=== PATIENT | female | born 1945 | race Caucasian/White ===

== ENCOUNTER 2019-04-12 08:07 | Outpatient (REF) | payer MEDICARE, OTHER, SELFPAY ==
[2019-04-12 12:58] LABS: HCT 34.4 % (36.0-46.0); HGB 10.8 g/dL (12.0-15.5); Mean Corp. HGB Concentration 31.4 g/dL (32.0-36.0); Mean Corpuscular Hemoglobin 31.1 pg (27.0-33.0); Mean Corpuscular Volume 99.1 fL (80-95); Mean Platelet Volume 11.3 fL (8.0-11.0); Platelet Count 267 x1000/uL (130-400); RBC 3.47 m/cumm (4.00-5.20); RBC Distribution Width 13.4 % (11.7-14.6)
[2019-04-12 13:45] LABS: Anion Gap 8.7 mmol/L (3-11); BUN 30 mg/dL (7-18); CO2 27.3 mmol/L (21.0-32.0); CREATININE 1.72 mg/dL (0.55-1.02); Calcium 8.9 mg/dL (8.5-10.1); Calculated LDL 90 mg/dL; Chloride 108 mmol/L (98-107); Cholesterol 144 mg/dL (50-200); Estimated GFR 28.99 (mL/min/1.73m2); Glucose 90 mg/dL (70-100); HDL Cholesterol 17 mg/dL (40-60); Potassium 4.5 mmol/L (3.5-5.1); Sodium 144 mmol/L (136-145); TSH (W/Ref FT4) 3.43 uIU/mL (0.36-3.74); Triglyceride 186 mg/dL (30-150)
== END 2019-04-12 08:27 ==
LOC: NCHCN 08:07
PROVIDERS: PCP Nurse Practitioner Family; Visit Provider Nurse Practitioner Family
DX: N18.9 Chronic kidney disease, unspecified (principal); D64.9 Anemia, unspecified; E03.9 Hypothyroidism, unspecified
CPT/HCPCS: 80048; 80061; 83721; 85027; 84443

== ENCOUNTER 2019-05-04 00:27 | Outpatient (CLI) | payer MEDICARE, OTHER, SELFPAY ==
--- NOTE | 2019-05-04 12:35 | DI.MAMMO_ITS ---
SYMPTOM/DIAGNOSIS: SCREENING Z12.39 BILATERAL SCREENING MAMMOGRAM: Mammograms were interpreted according to the usual protocol including computer analysis with CAD system, tomosynthesis and C view imaging. Comparison is made with exams from 2008 through 2017 from [facility]. The breasts are composed of fatty density tissue, breast density category A. No suspicious masses or suspicious microcalcifications are seen. There has been no significant change. IMPRESSION: Category 1, negative mammogram. Yearly screening mammography is recommended. Breast density category A. SA ASSESSMENT OF FINDINGS: Negative. Category 1. Patient will receive a letter notifying them of these results. BI-RAD category A. The breasts are almost entirely fatty.
== END 2019-05-04 00:47 ==
PROVIDERS: PCP Nurse Practitioner Family; Visit Provider Nurse Practitioner Family
DX: Z12.31 Encounter for screening mammogram for malignant neoplasm of breast (principal)
CPT/HCPCS: 77063; 77067

== ENCOUNTER 2019-10-17 09:56 | Outpatient (REF) | payer MEDICARE, OTHER, SELFPAY ==
[2019-10-17 12:35] LABS: Anion Gap 8.6 mmol/L (3-11); BUN 25 mg/dL (7-18); CO2 27.4 mmol/L (21.0-32.0); CREATININE 1.62 mg/dL (0.55-1.02); Calcium 8.5 mg/dL (8.5-10.1); Chloride 109 mmol/L (98-107); Estimated GFR 30.98 (mL/min/1.73m2); Glucose 96 mg/dL (74-106); Potassium 4.7 mmol/L (3.5-5.1); Sodium 145 mmol/L (136-145)
== END 2019-10-17 10:16 ==
LOC: NCHCN 09:56
PROVIDERS: PCP Nurse Practitioner Family; Visit Provider Nurse Practitioner Family
DX: N18.4 Chronic kidney disease, stage 4 (severe) (principal)
CPT/HCPCS: 80048

== ENCOUNTER 2020-02-17 12:03 | Day surgery (SDC) | payer MEDICARE, OTHER, SELFPAY ==
--- NOTE | 2020-02-17 07:55 | W.PM.DSUDISC ---
Discharge Plan Disposition Patient Disposition: HOME Condition: Good Discharge Details Reason For Visit: CATARACT OD Attending Provider: Romulo Kennedy Primary Care Provider: Arti Rouse Home Meds and New Rx's Prescriptions: No Action benzonatate [Tessalon Perles] 100 mg Capsule 100 mg PO TID PRNRF: 0 nystatin 100,000 unit/gram Cream 1 applic TOPICAL BID RF: 0 betamethasone dipropionate 0.05 % Cream 1 applic TOPICAL BID RF: 0 albuterol sulfate [Ventolin HFA] 90 mcg/actuation Hfa Aerosol Inhaler 2 puff INHALATION 6XD PRNRF: 0 Probiotic 10 billion cell Capsule 10 cell PO DAILY RF: 0 nitroglycerin [Nitrostat] 0.4 mg Tablet, Sublingual 0.4 mg SUBLINGUAL Q5-15M PRNRF: 0 Leg Cramp Relief Oral Tablet 1 tab PO HS RF: 0 cyanocobalamin (vitamin B-12) [Vitamin B-12] 1,000 mcg Tablet 1,000 mcg PO DAILY RF: 0 levothyroxine 75 mcg Tablet 75 mcg PO DAILY RF: 0 omeprazole 20 mg Capsule,Delayed Release(Dr/Ec) 20 mg PO DAILY RF: 0 lorazepam 1 mg Tablet 1 mg PO QHS PRNRF: 0 fenofibrate 160 mg Tablet 160 mg PO DAILY RF: 0 Centrum Silver Women 8 mg iron-400 mcg-300 mcg Tablet 1 tab PO DAILY RF: 0 ICaps AREDS2 250 mg-200 unit -12.5 mg-1 mg Capsule 1 cap PO DAILY RF: 0 Discharge Instructions Stand Alone Forms: Post-op Topical Cataract, Clayton Gooden (DSU) DS: Diagnosis Discharge Diagnosis (1) Nuclear sclerotic cataract of right eye: Start date: 02/17/20 Start time: 15:37 Status: Resolved (2) Cortical cataract of right eye: Status: Resolved
--- NOTE | 2020-02-17 07:58 | ROE_ITS ---
Date of service: 02/17/20 Operative Note Operative Note DATE OF PROCEDURE: 02/17/20 PRE-OP DIAGNOSIS: Nuclear cataract, right eye' Cortical cataract, right eye POST-OP DIAGNOSIS: same PROCEDURE: Cataract extraction using phacoemulsification with intraocular lens implant, right eye SURGEON: Romulo Kennedy ANESTHESIA: MAC and local (sub-tenon's anesthetic infiltration) ESTIMATED BLOOD LOSS: 0 PATHOLOGY: none sent COMPLICATIONS: None Patient was transported to: same day Patient's condition: stable Implants: Renato and Renato Vision / [employer] Tecnis ZCB00 intraocular lens Indications: Progressive decreased vision due to cataract, right eye Procedure Description: CATARACT SURGERY OPERATIVE REPORT PREOPERATIVE DIAGNOSIS: [] POSTOPERATIVE DIAGNOSIS: Same OPERATION: Cataract extraction using phacoemulsification with posterior chamber intraocular lens implant, right eye. IOL: IOL Accounting Administrative Assistant/Model: J&J Vision / TERESA Tecnis ZCB00 IOL Power: +[] diopters IOL Serial Number: [] Optic Diameter: 6.0mm Haptic/Overall Diameter: 13.0mm PHACO INFO: Tre[employer]oeton Vision System with OZil and Active Fluidics Cumulative Dispersed Energy (CDE): [] seconds SURGEON: Romulo Kennedy MD, ALPESH ANESTHESIA: Monitored Anesthesia Care (MAC), with local sub-tenon's anesthetic infiltration COMPLICATIONS: None SPECIMENS: None INDICATIONS FOR PROCEDURE: [] PROCEDURE: The correct surgical eye was identified and marked as the right eye and the pupil was dilated in the preoperative area using mydriatics and cycloplegics. The dilated pupil size was [] mm. Oral sedation was administered in the form of an Imprimis MKO Melt (midazolam 3mg/ketamine 25mg/ondansetron 2mg). The patient was brought to the operating room where cardiopulmonary monitoring was instituted and surgical time-out was performed, confirming the correct operative eye and IOL power. Topical anesthesia was administered and ophthalmic povidone-iodine 5% was instilled into the conjunctival fornices. Lidocaine gel was applied to the cornea and the jaja-ocular area was prepped with Betadine 10% solution and draped in the usual sterile fashion for intraocular surgery, including an aperture drape. A Tegaderm transparent film dressing was cut in half and used to cover the lashes and lid margins. Care was taken to sequester the lashes and lid margins under the Tegaderm dressing. A lid speculum was placed between the lids of the operative eye and the Karishma-Kiet operating microscope was maneuvered into position. Tramaine scissors were then used to make a conjunctival buttonhole approximately 6mm posterior to the limbus in the inferonasal quadrant. Blunt dissection was carried out to expose bare sclera, and a blunt-tipped sub-tenon?s anesthesia cannula was introduced and passed posteriorly along the globe where non- preserved plain lidocaine was injected into posterior sub-Tenon?s space. A sideport knife was used to make a paracentesis port inferiortemporally, and the anterior chamber was filled with Healon GV. A 2.4mm keratome knife was used to create a half-thickness groove at the limbus and then to construct a three-plane near-clear corneal tunnel extending 2.0mm into clear cornea in the superiortemporal position. . A flap was raised on the anterior capsule and capsulorhexis forceps were used to complete a continuous curvilinear capsulorhexis of []mm. Balanced salt solution was then used to perform cortical cleaving hydrodissection and nuclear hydrodelineation until the lens could be freely rotated within the capsular bag. The lens nucleus was then disassembled and removed within the capsular bag and iris plane using phacoemulsification. Residual cortical material was removed using the I/A handpiece. The posterior capsule was carefully polished to remove as much residual lens epithelial cells as safely possible. The capsular bag was then inflated and the anterior chamber deepened with viscoelastic. The lens implant described above was inserted into the capsular bag using the TERESA [place] Injector. A Kuglen hook was used to dial the IOL into position. Residual viscoelastic was then removed first from posterior to the IOL, then from the anterior chamber using the I/A handpiece. The lens implant was noted to center nicely within the capsular bag. The incisions were stromally hydrated, and the anterior chamber was reformed using BSS. Then 0.4cc of moxifloxacin 1.5mg/ml were injected into the capsular bag and anterior chamber. The incisions were checked with a Weck spear and found to be secure. Several drops of ophthalmic povidone-iodine 5% were then applied to the eye followed by two drops of Imprimis combination prednisolone/gatifloxacin/bromfenac solution. The drapes were removed and a clear plastic protective eye shield was placed over the eye. The patient was then returned to Same Day Surgery in stable condition.
--- NOTE | 2020-02-17 08:06 | ROE_ITS ---
Date of service: 02/17/20 Time of Service: 15:39 Operative Note Operative Note DATE OF PROCEDURE: 02/17/20 PRE-OP DIAGNOSIS: Nuclear/cortical cataract, right eye POST-OP DIAGNOSIS: same PROCEDURE: Cataract extraction using phacoemulsification with intraocular lens implant, right eye SURGEON: Romulo Kennedy ANESTHESIA: MAC and local (sub-tenon's anesthetic infiltration) ESTIMATED BLOOD LOSS: 0 PATHOLOGY: none sent COMPLICATIONS: None Patient was transported to: same day Patient's condition: stable Implants: Renato and Renato Vision / [employer] Tecnis ZCB00 intraocular lens Indications: Progressive decreased vision due to cataract, right eye Procedure Description: CATARACT SURGERY OPERATIVE REPORT PREOPERATIVE DIAGNOSIS: Nuclear/cortical cataract, right eye POSTOPERATIVE DIAGNOSIS: Same OPERATION: Cataract extraction using phacoemulsification with posterior chamber intraocular lens implant, right eye. IOL: IOL Trust Vault Custodian/Model: J&J Vision / TERESA Tecnis ZCB00 IOL Power: + 21.0 diopters IOL Serial Number: [id number] Optic Diameter: 6.0mm Haptic/Overall Diameter: 13.0mm PHACO INFO: Tre M[employer]ix Broadbandurion Vision System with OZil and Active Fluidics Cumulative Dispersed Energy (CDE): 6.86 seconds SURGEON: Romulo Kennedy MD, ALPESH ANESTHESIA: Monitored Anesthesia Care (MAC), with local sub-tenon's anesthetic infiltration COMPLICATIONS: None SPECIMENS: None INDICATIONS FOR PROCEDURE: The patient is a 74-year-old lady who has previously undergone cataract surgery elsewhere in her left eye. She has now developed a symptomatic nuclear and cortical cataract in her right eye and desires cataract surgery there and attem pt to improve and maximize her vision. PROCEDURE: The correct surgical eye was identified and marked as the right eye and the pupil was dilated in the preoperative area using mydriatics and cycloplegics. The dilated pupil size was 6.0 mm. Oral sedation was administered in the form of an Imprimis MKO Melt (midazolam 3mg/ketamine 25mg/ondansetron 2mg). The patient was brought to the operating room where cardiopulmonary monitoring was instituted and surgical time-out was performed, confirming the correct operative eye and IOL power. Topical anesthesia was administered and ophthalmic povidone-iodine 5% was instilled into the conjunctival fornices. Lidocaine gel was applied to the cornea and the jaja-ocular area was prepped with Betadine 5% solution and draped in the usual sterile fashion for intraocular surgery, including an aperture drape. A Tegaderm transparent film dressing was cut in half and used to cover the lashes and lid margins. Care was taken to sequester the lashes and lid margins under the Tegaderm dressing. A lid speculum was placed between the lids of the operative eye and the Karishma-Kiet operating microscope was maneuvered into position. Tramaine scissors were then used to make a conjunctival buttonhole approximately 6mm posterior to the limbus in the inferonasal quadrant. Blunt dissection was carried out to expose bare sclera, and a blunt-tipped sub-tenon?s anesthesia cannula was introduced and passed posteriorly along the globe where non- preserved plain lidocaine was injected into posterior sub-Tenon?s space. A sideport knife was used to make a paracentesis port inferiortemporally. Intraocular phenylephrine/lidocaine was injected into the anterior chamber, followed by Healon Pro. A 2.4mm keratome knife was used to create a half- thickness groove at the limbus and then to construct a three-plane near-clear corneal tunnel extending 2.0mm into clear cornea in the superiortemporal position. . A flap was raised on the anterior capsule and capsulorhexis forceps were used to complete a continuous curvilinear capsulorhexis of 5.0 mm. Balanced salt solution was then used to perform cortical cleaving hydrodissection and nuclear hydrodelineation until the lens could be freely rotated within the capsular bag. The lens nucleus was then disassembled and removed within the capsular bag and iris plane using phacoemulsification. Residual cortical material was removed using the I/A handpiece. The posterior capsule was carefully polished to remove as much residual lens epithelial cells as safely possible. The capsular bag was then inflated and the anterior chamber deepened with viscoelastic. The lens implant described above was inserted into the capsular bag using the TERESA [place] Injector. A Kuglen hook was used to dial the IOL into position. Residual viscoelastic was then removed first from posterior to the IOL, then from the anterior chamber using the I/A handpiece. The lens implant was noted to center nicely within the capsular bag. The incisions were stromally hydrated, and the anterior chamber was reformed using BSS. Then 0.5cc of moxifloxacin 1.0mg/ml were injected into the capsular bag and anterior chamber. The incisions were checked with a Weck spear and found to be secure. Several drops of ophthalmic povidone-iodine 5% were then applied to the eye followed by two drops of Imprimis combination prednisolone/moxifloxacin/nepafenac solution. The drapes were removed and a clear plastic protective eye shield was placed over the eye. The patient was then returned to Same Day Surgery in stable condition.
[2020-02-17 12:42] VITALS: BP 115/71; PULSE 82; RESP 16; TEMP 36.6; O2SAT 97
[2020-02-17] MEDS: Lidocaine 2% Jelly 6 ML SYR (14:51)
[2020-02-17] MEDS: Tetracaine 0.5% 4 ML BTL OD (15:01)
[2020-02-17] MEDS: Lidocaine 1% Pres-Free 5 ML VIAL (15:01)
[2020-02-17] MEDS: Balanced Salt Soln.-PLUS 500 ML BAG (15:09)
[2020-02-17] MEDS: Moxifloxacin-PF 1 MG/ML VIAL (15:12)
[2020-02-17 16:35] VITALS: BP 123/66; PULSE 86; RESP 18; TEMP 36.3; O2SAT 98
== END 2020-02-17 16:20 | disposition home or self-care (01) ==
PROVIDERS: PCP Nurse Practitioner Family; Visit Provider Ophthalmology
PROC: (CPT 66984; principal; 2020-02-17 14:30)
DX: H25.11 Age-related nuclear cataract, right eye (principal); H25.011 Cortical age-related cataract, right eye; Z96.1 Presence of intraocular lens; Z98.42 Cataract extraction status, left eye
CPT/HCPCS: 66984; V2632

== ENCOUNTER 2020-07-17 01:34 | Outpatient (CLI) | payer MEDICARE, OTHER, SELFPAY ==
--- NOTE | 2020-07-17 08:45 | DI.DEXA_ITS ---
EXAM: XR DEXA BONE DENSITY W/WO JOSH CLINICAL HISTORY: SCREENING FOR OSTEOPOROSIS IN POSTMENOPAUSAL WOMAN,Z78.0 TECHNIQUE: COMPARISON: No exams were available for comparison FINDINGS: Lateral Spine Image: Unremarkable. No compression deformities identified. Left hip: Total T-Score: -1.0 Total Z-Score: 0.8 T- and Z-scores: Within normal limits. Lumbar Spine: Total T-Score: -0.1 Total Z-Score: 2.4 T- and Z-scores: Within normal limits. IMPRESSION: No evidence of osteoporosis.
== END 2020-07-17 01:54 ==
PROVIDERS: PCP Family Medicine; Visit Provider Family Medicine
DX: Z78.0 Asymptomatic menopausal state (principal)
CPT/HCPCS: 77080

== ENCOUNTER 2021-03-07 03:55 | Outpatient (CLI) | payer MEDICARE, OTHER, SELFPAY ==
[2021-03-07 11:13] LABS: HCT 32.1 % (36.0-46.0); HGB 10.2 g/dL (11.2-15.7); MCH 32.2 pg (27.0-33.0); MCHC 31.8 % (32.0-36.0); MCV 101.3 fL (80-95); MPV 10.5 fL (8.0-11.0); Platelet Count 239 10^3/uL (130-400); RBC 3.17 10^6/uL (3.93-5.22); RDW 13.7 % (11.7-14.6); Reticulocyte 1.6 % (0.5-2.4); WBC 6.93 10^3/uL (4.4-10.8)
[2021-03-07 11:54] LABS: Iron 87 ug/dL (50-170); Total Iron Binding Capacity 362 ug/dL (250-450); Transferrin Sat 24 % (15-50)
[2021-03-07 12:21] LABS: Anion Gap 8.4 mmol/L (3-11); BUN 24 mg/dL (7-18); CO2 27.6 mmol/L (21.0-32.0); CREATININE 1.8 mg/dL (0.55-1.02); Calcium 8.9 mg/dL (8.5-10.1); Chloride 110 mmol/L (98-107); Estimated GFR 27.36 (mL/min/1.73m2); Ferritin 282 ng/mL (8-252); Folate > 20.0 ng/mL (8.6-20.0); Glucose 83 mg/dL (74-106); Magnesium 2.1 mg/dL (1.8-2.4); Sodium 146 mmol/L (136-145); Vitamin B12 607 pg/mL (193-986)
[2021-03-08 18:20] LABS: Erythropoietin 10.3 mIU/mL (2.6 - 18.5)
== END 2021-03-07 03:56 | disposition home or self-care (01) ==
LOC: LBO 03:56
PROVIDERS: PCP Internal Medicine; Visit Provider Internal Medicine
DX: N18.4 Chronic kidney disease, stage 4 (severe) (principal); D64.9 Anemia, unspecified; G47.62 Sleep related leg cramps; E03.9 Hypothyroidism, unspecified; Z79.899 Other long term (current) drug therapy
CPT/HCPCS: 36415; 80048; 82668; 85027; 82607; 82728; 82746; 83540; 83550; 83735; 85045

== ENCOUNTER 2021-10-24 18:40 | Outpatient (REF) | payer MEDICARE, OTHER, SELFPAY ==
[2021-10-24 14:55] LABS: HCT 32.4 % (36.0-46.0); HGB 10.2 g/dL (11.2-15.7); MCH 31.7 pg (27.0-33.0); MCHC 31.5 % (32.0-36.0); MCV 100.6 fL (80-95); MPV 11.5 fL (8.0-11.0); Platelet Count 252 10^3/uL (130-400); RBC 3.22 10^6/uL (3.93-5.22); RDW 13.8 % (11.7-14.6); WBC 6.47 10^3/uL (4.4-10.8)
[2021-10-24 15:40] LABS: Anion Gap 9.3 mmol/L (3-11); BUN 22 mg/dL (7-18); CO2 25.7 mmol/L (21.0-32.0); CREATININE 1.7 mg/dL (0.55-1.02); Chloride 108 mmol/L (98-107); Estimated GFR 29.14 (mL/min/1.73m2); Glucose 106 mg/dL (74-106); Potassium 4.6 mmol/L (3.5-5.1); Sodium 143 mmol/L (136-145); TSH (W/Ref FT4) 2.85 uIU/mL (0.36-3.74)
== END 2021-10-24 18:41 | disposition home or self-care (01) ==
LOC: NCHCN 18:40
PROVIDERS: Visit Provider Nurse Practitioner Family
DX: D64.9 Anemia, unspecified (principal); E03.9 Hypothyroidism, unspecified; N18.4 Chronic kidney disease, stage 4 (severe)
CPT/HCPCS: 80048; 85027; 84443

== ENCOUNTER 2022-02-26 19:46 | Outpatient (REF) | payer MEDICARE, OTHER, SELFPAY ==
[2022-02-26 20:18] LABS: HCT 33.4 % (36.0-46.0); MCH 32.9 pg (27.0-33.0); MCHC 32.9 % (32.0-36.0); MCV 100 fL (80-95); Platelet Count 220 10^3/uL (130-400); RBC 3.34 10^6/uL (3.93-5.22); RDW 13.2 % (11.7-14.6); RDW-SD 47.9 fL; WBC 6.41 10^3/uL (4.4-10.8)
[2022-02-26 20:23] LABS: Anion Gap 6.7 mmol/L (3-11); BUN 25 mg/dL (7-18); CO2 27.3 mmol/L (21.0-32.0); CREATININE 1.5 mg/dL (0.55-1.02); Calcium 8.6 mg/dL (8.5-10.1); Chloride 109 mmol/L (98-107); Estimated GFR 33.67 (mL/min/1.73m2); Glucose 103 mg/dL (74-106); Potassium 4.7 mmol/L (3.5-5.1); Sodium 143 mmol/L (136-145)
== END 2022-02-26 19:47 | disposition home or self-care (01) ==
LOC: NCHCN 19:46
PROVIDERS: Visit Provider Nurse Practitioner Family
DX: N18.4 Chronic kidney disease, stage 4 (severe) (principal); D64.9 Anemia, unspecified
CPT/HCPCS: 80048; 85027

== ENCOUNTER 2022-04-17 09:30 | Outpatient (CLI) | payer MEDICARE, OTHER, SELFPAY ==
--- NOTE | 2022-04-17 09:15 | DI.RAD_ITS ---
Exam(s) XR KNEE RT 3V AP,LAT,RITO EXAM: XR KNEE RT 3V AP,LAT,RITO CLINICAL HISTORY: RIGHT KNEE PAIN. TECHNIQUE: 2D digital imaging was performed. Three views. COMPARISON: No exams were available for comparison FINDINGS: BONES: No acute fracture is present. No bony destructive lesion is seen. Enthesophyte superior pole of the patella. JOINTS: The knee is normally aligned. No joint effusion is seen. Minimal periarticular spurring. SOFT TISSUE: Medial soft tissue swelling and venous varicosities. IMPRESSION: Minimal degenerative changes. Prominent venous varicosities. Medial soft tissue swelling. DATA REPOSITORY: RADIATION DOSE DELIVERED:
--- NOTE | 2022-04-17 09:15 | DI.RAD_ITS ---
Exam(s) XR KNEE LT 3V AP,LAT,RITO EXAM: XR KNEE LT 3V AP,LAT,RITO CLINICAL HISTORY: LEFT KNEE PAIN. TECHNIQUE: 2D digital imaging was performed. Three views. COMPARISON: CR XR KNEE RT 3V AP,LAT,RITO from 04/17/2022 FINDINGS: BONES: No acute fracture is present. No bony destructive lesion is seen. Enthesophyte at the quadr iceps insertion. JOINTS: Moderate narrowing lateral femoral tibial joint space. Mild periarticular spurring and scler osis. Mild spurring at the patella. No joint effusion is seen. SOFT TISSUE: Varicosities medial soft tissues. 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 DATA REPOSITORY: RADIATION DOSE DELIVERED:
== END 2022-04-17 09:31 | disposition home or self-care (01) ==
LOC: DIORS 09:30
PROVIDERS: PCP Nurse Practitioner Family; Referring Provider Nurse Practitioner Family; Visit Provider Student in an Organized Health Care Education/Training Program
DX: M17.11 Unilateral primary osteoarthritis, right knee (principal); M17.12 Unilateral primary osteoarthritis, left knee
CPT/HCPCS: 73562; 99203

== ENCOUNTER → 2022-09-25 09:05 | Outpatient (BNVA) | payer MEDICARE, OTHER, SELFPAY | PROVIDERS: PCP Nurse Practitioner Family; Referring Provider Nurse Practitioner Family; Visit Provider Student in an Organized Health Care Education/Training Program | DX: M17.12 Unilateral primary osteoarthritis, left knee (principal) | CPT/HCPCS: 20610; J1040 ==

== ENCOUNTER 2022-10-17 09:59 | Emergency (ER) | payer MEDICARE, OTHER, SELFPAY ==
[2022-10-17] VITALS (42 sets, daily range): BP systolic 134–148; BP diastolic 50–107; PULSE 53–76; RESP 11–24; TEMP 36.7; O2SAT 86–97
--- NOTE | 2022-10-17 10:00 | RT.EKG_ITS ---
APPROVED REPORT Exam: Resting ECG Reason for Exam: chest pain Patient Location: E HR:68 bpm ECG Measurements Heart Rate 68 AXIS MO 150 P 50 QRSd 69 QRS -23 QT 371 T 68 QTc 395 Conclusion Sinus rhythm...normal P axis, V-rate 60- 99
--- NOTE | 2022-10-17 10:28 | ED.GENADUL_ITS ---
Discharge Plan Disposition Patient Disposition: Transfer-Acute Inpatient Care Specific Acute Inpt Facility: [facility] Discharge Details Chief Complaint: GenMedical Clinical Impression: Intracranial hemorrhage Primary Care Provider: Arti Rouse ED Provider: Clinton Chang Home Meds and New Rx's Prescriptions: No Action meloxicam 7.5 mg tablet 7.5 mg PO DAILY triamcinolone acetonide 0.1 % cream 1 applic topical BID nitroglycerin [Nitrostat] 0.4 mg tablet, sublingual 0.4 mg SUBLINGUAL Q5-15M PRN (Reason: chest pain) Qty: 60 0RF vitamin B complex [B Complex-Vitamin B12] Tablet 1 tab PO DAILY Qty: 90 3RF magnesium L-lactate 84 mg tablet extended release 84 mg PO DAILY omeprazole 20 mg capsule,delayed release(DR/EC) 20 mg PO DAILY Qty: 90 2RF lorazepam 1 mg tablet 0.5 mg PO DAILY PRN (Reason: anxiety) Qty: 20 0RF levothyroxine 75 mcg tablet 75 mcg PO DAILY Qty: 90 3RF albuterol sulfate [Ventolin HFA] 90 mcg/actuation Hfa Aerosol Inhaler 2 puff INHALATION 6X/DAY PRN (Reason: Shortness Of Breath) Centrum Silver Women 8 mg iron-400 mcg-300 mcg Tablet 1 tab PO DAILY ICaps AREDS2 250 mg-200 unit -12.5 mg-1 mg Capsule 1 cap PO DAILY Medical Decision Making This is a 77-year-old female with past medical history of anxiety, thyroid disease, anemia, CKD, presenting to the ER today with multiple complaints, headache over the past 48 hours, worsening yesterday, now a 7 out of 10, occasional blurry vision, worse in the right side. Also reports chest pain yesterday, denies chest pain now. Also reports nausea, vomiting, 1 episode of diarrhea today. Headache is worsening, visual changes have been intermittent. Plan to obtain brain CT as well as brain and neck CTA, initiate cardiac work-up. Will provide IV fluid, Zofran, acetaminophen. Laboratory values reveal no obvious emergent process. Renal function creatinine 1.5 GFR 35.45 which appears to be near her baseline. Initial troponin less than 50. TSH 1.56. Urinalysis with small leuk esterase, 3-5 red and white cells. Nitrate negative. COVID, flu, RSV negative I was contacted by the telecom field technician during the CT imaging for concerning findings, intracranial hemorrhage. The images were pushed to [facility] and requested a transfer-consultation. The CTA was canceled. I did discuss the CT findings with the patient and her . Awaiting callback from neurology and/or neurosurgery at [facility] for transfer. In the meantime patient remains neurologically intact and hemodynamically stable. Reports minimal improvement with IV Tylenol. After waiting over 2 hours for callback from [facility], we did initiate a transfer to neurology at [facility], images were pushed. At [address] Scanlon, neurology at [facility]. He excepts transfer of the patient. Awaiting bed status. While awaiting a bed, I received a call from neurology at [facility] 1453. I spoke with neurology, Dr. Garcia, who excepted care of the patient but they too did not have any beds. Likely this evening. Recommends keeping blood pressure systolically under 140. Patient has been persistently under 140 while here. Continues to report a headache. Intermittent blurry vision but no true visual field deficit. Remains neurologically intact. I explained to the patient and her family our transfer status of both [facility] and [facility], they would like to go to the facility that has the bed the fastest. Shortly after we received a call from [facility] stating that they had bed availability, all appropriate paperwork was completed and transportation was arranged. This documentation was generated using S[employer]ED dictation system, please disregard any oddities of phrase or misspellings. Medical Records Medical records reviewed: Yes I reviewed the patient's medical records. Imaging Data Radiologic Study: Attestation: I personally reviewed and interpreted this imaging study as follows: Imaging: CT Scan Radiologist's impression: Exam(s) CT HEAD WO EXAM: CT HEAD WO CLINICAL HISTORY: BIRD, blurry vision. TECHNIQUE: Imaging Protocol: Axial computed tomography images with coronal and sagittal reformatted images were created and reviewed COMPARISON: No exams were available for comparison FINDINGS: There are no skull fractures. There is no fluid in the visualized paranasal sinuses. There is an area of intra-axial hemorrhage in the right occipital lobe which measures 3.6 cm AP x 3.6 cm wide by 2.6 cm craniocaudal. There is some surrounding brain edema and adjacent extra-axial blood over the subjacent tentorium cerebella lie. There is no evidence of intra-axial hemorrhage in the posterior fossa. No blood within the ventricular system nor within the basal cisterns. No shift of midline structures IMPRESSION: There is a right occipital lobe hemorrhage with measurements as above. There is some surrounding edema and mass effect as well as subjacent extra-axial acute blood over the ipsilateral tentorium. No evidence of intra-axial hemorrhage within the cerebellar hemispheres. Lab Data Lab results reviewed: Yes I reviewed the patient's lab results. Labs: Laboratory Tests Range/Units 10/17/22 10/17/22 10/17/22 10:25 10:25 10:25 WBC (4.4-10.8) 10^3/uL 8.62 RBC (3.93-5.22) 10^6/uL 3.78 L Hgb (11.2-15.7) g/dL 11.7 Hct (36.0-46.0) % 35.9 L MCV (80-95) fL 95 MCH (27.0-33.0) pg 31.0 MCHC (32.0-36.0) % 32.6 RDW (11.7-14.6) % 12.8 Plt Count (130-400) 10^3/uL 200 MPV (8.0-11.0) fL 10.4 Immature Gran % 0.2 Neutrophils % 74.2 Lymphocytes % 15.8 Monocytes % 9.3 Eosinophils % 0.3 Basophils % 0.2 Nucleated RBC % (0.0-0.3) % 0.0 Absolute Neutrophils (1.2-6.7) 10^3/uL 6.39 Absolute Lymphocytes (1.2-3.4) 10^3/uL 1.36 Absolute Monocytes (0.1-0.8) 10^3/uL 0.80 Absolute Eosinophils (0.0-0.7) 10^3/uL 0.03 Absolute Basophils (0.0-0.2) 10^3/uL 0.02 PT (9.3-11.0) sec 10.0 INR (0.9-1.1) 1.0 APTT (21.0-27.5) sec 21.2 Sodium (136-145) mmol/L 140 Potassium (3.5-5.1) mmol/L 4.3 Chloride (98-107) mmol/L 104 Carbon Dioxide (21.0-32.0) mmol/L 26.4 Anion Gap (3-11) mmol/L 9.6 BUN (7-18) mg/dL 20 H Creatinine (0.55-1.02) mg/dL 1.5 H Est GFR (CKD-EPI 2020) (mL/min/1.73m2) 35.45 Glucose (74-106) mg/dL 109 H Calcium (8.5-10.1) mg/dL 9.5 Magnesium (1.8-2.4) mg/dL 2.0 Total Bilirubin (0.2-1.0) mg/dL 0.8 AST (15-37) U/L 24 ALT (14-59) U/L 20 Alkaline Phosphatase (46-116) U/L 102 Troponin I (<or=60) ng/L < 50 Total Protein (6.4-8.2) g/dL 7.5 Albumin (3.4-5.0) g/dL 3.7 TSH (0.36-3.74) uIU/mL 1.56 Urine Color (Yellow) Urine Clarity (Clear) Urine pH (5-8) Ur Specific [place] (1.005-1.025) Urine Protein (Negative) mg/dL Urine Ketones (Negative) mg/dL Urine Blood (Negative) Urine Nitrite (Negative) Urine Bilirubin (Negative) Urine Urobilinogen (Up TO 0.2) EU/dL Ur Leukocyte Esterase (Negative) Urine RBC (0-2) HPF Urine WBC (0-5) HPF Ur Epithelial Cells (Negative) HPF Urine Crystals (Negative) HPF Urine Bacteria (Negative) HPF Urine Casts (Negative) LPF Urine Mucus (Negative) Urine Other (Negative) Ur Culture Indicated? Urine Glucose (Negative) mg/dL COVID-19 Source SARS-CoV-2 (PCR) (Negative) Influenza Type A (PCR) (Negative) Influenza Type B (PCR) (Negative) RSV (PCR) (Negative) Range/Units 10/17/22 10/17/22 10:47 10:50 WBC (4.4-10.8) 10^3/uL RBC (3.93-5.22) 10^6/uL Hgb (11.2-15.7) g/dL Hct (36.0-46.0) % MCV (80-95) fL MCH (27.0-33.0) pg MCHC (32.0-36.0) % RDW (11.7-14.6) % Plt Count (130-400) 10^3/uL MPV (8.0-11.0) fL Immature Gran % Neutrophils % Lymphocytes % Monocytes % Eosinophils % Basophils % Nucleated RBC % (0.0-0.3) % Absolute Neutrophils (1.2-6.7) 10^3/uL Absolute Lymphocytes (1.2-3.4) 10^3/uL Absolute Monocytes (0.1-0.8) 10^3/uL Absolute Eosinophils (0.0-0.7) 10^3/uL Absolute Basophils (0.0-0.2) 10^3/uL PT (9.3-11.0) sec INR (0.9-1.1) APTT (21.0-27.5) sec Sodium (136-145) mmol/L Potassium (3.5-5.1) mmol/L Chloride (98-107) mmol/L Carbon Dioxide (21.0-32.0) mmol/L Anion Gap (3-11) mmol/L BUN (7-18) mg/dL Creatinine (0.55-1.02) mg/dL Est GFR (CKD-EPI 2020) (mL/min/1.73m2) Glucose (74-106) mg/dL Calcium (8.5-10.1) mg/dL Magnesium (1.8-2.4) mg/dL Total Bilirubin (0.2-1.0) mg/dL AST (15-37) U/L ALT (14-59) U/L Alkaline Phosphatase (46-116) U/L Troponin I (<or=60) ng/L Total Protein (6.4-8.2) g/dL Albumin (3.4-5.0) g/dL TSH (0.36-3.74) uIU/mL Urine Color (Yellow) Yellow Urine Clarity (Clear) Clear Urine pH (5-8) 7.5 Ur Specific [place] (1.005-1.025) 1.020 Urine Protein (Negative) mg/dL Negative Urine Ketones (Negative) mg/dL Negative Urine Blood (Negative) Trace-intact H Urine Nitrite (Negative) Negative Urine Bilirubin (Negative) Negative Urine Urobilinogen (Up TO 0.2) EU/dL 0.2 Ur Leukocyte Esterase (Negative) Small H Urine RBC (0-2) HPF 3-5 H Urine WBC (0-5) HPF 3-5 Ur Epithelial Cells (Negative) HPF Few Urine Crystals (Negative) HPF Negative Urine Bacteria (Negative) HPF Few Urine Casts (Negative) LPF Negative Urine Mucus (Negative) Trace Urine Other (Negative) Negative Ur Culture Indicated? No Urine Glucose (Negative) mg/dL Negative COVID-19 Source Nasopharynx SARS-CoV-2 (PCR) (Negative) Negative Influenza Type A (PCR) (Negative) Negative Influenza Type B (PCR) (Negative) Negative RSV (PCR) (Negative) Negative ECG Data Attestation: I personally reviewed and interpreted this ECG (s) as follows: Interpretation: Sinus rhythm, ventricular of 68, no STEMI HPI General Mode of arrival: ambulatory . Date/Time Provider Initiated Documentation: 10/17/22 10:00 . Limitations to Documentation: no limitations . Information obtained by: patient . HPI Narrative: This is a 77-year-old female with a past medical history of anxiety, hypothyroidism, anemia, CKD, GERD, presenting to the ER with multiple complaints, first a gradual headache that began yesterday, worse on the right side, currently a 7 out of 10, she reports occasional bilateral blurry vision t hat seems worse on the right side, right now feels as though her vision is near baseline but states this morning looking at her alarm clock she had a hard time evaluating the numbers, reported chest pain yesterday, denies any chest pain now, reports mild nausea and vomiting intermittently for 2 days, 1 episode of diarrhea this morning. She denies recent illness or trauma. She denies any fever, neck pain, shortness of breath, radiation of her chest pain yesterday, abdominal pain, black tarry stools or bright red blood in her stools, dysuria, pain or swelling in her legs. She does report occasionally getting a headache but usually resolves without much intervention. Related Data Home Medications Medication Instructions Recorded Confirmed albuterol sulfate 90 mcg/actuation 2 puff inhalation 6X/DAY PRN 02/14/20 09/25/22 aerosol inhaler (Ventolin HFA) Shortness Of Breath multivit with 1 tab PO DAILY 02/14/20 10/17/22 nicavfqf-xnbv-RK-lutein 8 mg iron-400 mcg-300 mcg tablet (Centrum Silver Women) vit C 250 mg-vit E 200 unit-zinc 1 cap PO DAILY 02/14/20 10/17/22 ox 12.5 po-ppcwqm-whdhmj-zeax capsule (ICaps AREDS2) magnesium L-lactate 84 mg 84 mg PO DAILY 06/15/20 10/17/22 tablet,extended release triamcinolone acetonide 0.1 % 1 applic topical BID 07/13/20 09/25/22 topical cream nitroglycerin 0.4 mg sublingual 0.4 mg sublingual Q5-15M PRN chest 11/08/20 10/17/22 tablet (Nitrostat) pain #60 tabs vitamin B complex (B 1 tab PO DAILY #90 tabs 11/19/20 10/17/22 Complex-Vitamin B12 tablet) omeprazole 20 mg capsule,delayed 20 mg PO DAILY #90 caps 06/26/21 10/17/22 release levothyroxine 75 mcg tablet 75 mcg PO DAILY #90 tabs 09/03/21 10/17/22 lorazepam 1 mg tablet 0.5 mg PO DAILY PRN anxiety #20 09/03/21 10/17/22 tabs meloxicam 7.5 mg tablet 7.5 mg PO DAILY 09/25/22 10/17/22 Previous Rx's Medication Instructions Recorded nitroglycerin 0.4 mg sublingual 0.4 mg sublingual Q5-15M PRN chest 11/08/20 tablet (Nitrostat) pain #60 tabs vitamin B complex (B 1 tab PO DAILY #90 tabs 11/19/20 Complex-Vitamin B12 tablet) omeprazole 20 mg capsule,delayed 20 mg PO DAILY #90 caps 06/26/21 release levothyroxine 75 mcg tablet 75 mcg PO DAILY #90 tabs 09/03/21 lorazepam 1 mg tablet 0.5 mg PO DAILY PRN anxiety #20 09/03/21 tabs Allergies Allergy/AdvReac Type Severity Reaction Status Date / Time sulfamethoxazole Allergy Unknown Skin Rash Verified 10/17/22 10:06 [From Bactrim] trimethoprim [From Bactrim] Allergy Unknown Skin Rash Verified 10/17/22 10:06 General Stated Complaint: GenMedical YO: 2 Review of Systems Constitutional Constitutional: Denies fatigue, Denies fever(s), Reports headache(s) and Denies weakness Eyes Eyes: Reports blurry vision ENT Ears, Nose, Mouth, and Throat: Reports headache(s) and Denies neck pain Cardiovascular Cardiovascular: Reports chest pain and Denies dyspnea Respiratory Respiratory: Denies cough and Denies dyspnea Gastrointestinal Gastrointestinal: Denies abdominal pain, Reports diarrhea, Reports nausea and Reports vomiting Genitourinary Genitourinary: Denies dysuria Musculoskeletal Musculoskeletal: Denies neck pain, Denies numbness and Denies tingling Integumentary/Breasts Skin/Breast: Denies rash Neurologic Neurologic: Reports headache(s), Denies numbness, Denies tingling and Denies weakness Psychiatric Psychiatric: Reports anxiety Endocrine Endocrine: Denies fatigue Hematologic/Lymphatic Hematologic/Lymphatic: Denies easy bleeding and Denies easy bruising PFSH All Active Problems (Updated 10/17/22 @ 15:34 by JV Thomas) Intracranial hemorrhage (Acute) Unilateral primary osteoarthritis, left knee (Acute) DEPO MEDROL: 09/25/2022 Localized osteoarthritis of right knee (Acute) Benzodiazepine dependence (Chronic) Insomnia (Acute) Nocturnal leg cramps (Acute) Anxiety (Chronic) Hypothyroid (Chronic) Anemia (Chronic) Hearing loss (Acute) Diverticulitis (Chronic) Irritable bowel syndrome (Chronic) Arthropathy (Acute) Plantar fascial fibromatosis (Acute) Chronic kidney disease, stage 4 (severe) (Chronic) Rash (Acute) Medical History Anxiety Eczema GERD (gastroesophageal reflux disease) History of angina Pt. states a long time ago she had it when she goes down the stairs and comes up fast Hx of intestinal obstruction Surgical History History of cataract surgery History of colectomy History of oophorectomy Social History Smoking/Tobacco Use Status: Former Tobacco Use Quit Date: 09/14/07 Tobacco: How many years used: 15 Smoking risk assessment performed?: Yes Alcohol Intake: never Drug use: Never Substance use type: does not use Adopted: No Caregiver/Support person: No Foster care: No Household members: spouse Housing: house Number of Children: 5 number of grandchildren: 12 Communication Needs: Corrective Lenses Do you need help understanding health information?: Often current occupation: Retired Sexually active: Yes Do you think of yourself as: straight/heterosexual Current gender identity: female What type of physical activity do you participate in: walking Frequency: daily Thi/Sikh: Spiritism Seatbelt use: always Working smoke detector in home: Yes Fire extinguisher in home: Yes Carbon monox detector in home: Yes Do you feel safe at home: Yes Do you feel safe in your relationship?: Yes Exam Const General: cooperative, healthy appearing, comfortable and no acute distress Orientation: alert, awake and oriented x3 HENMT Head: normal to inspection, normocephalic and atraumatic Face and sinus: normal facial exam Mouth: moist mucous membranes Throat: posterior oropharynx normal Eyes General: appearance normal, both eyes and all related structures Alignment and Position: alignment normal Periorbital: periorbital findings normal Eyelids: eyelids normal Conjunctivae: conjunctivae normal Sclera: sclerae normal Cornea: corneas normal Pupils: PERRL EOM: EOM intact bilaterally Direct ophthalmoscopy: normal light reflex Neck Neck: normal visual inspection, full ROM, no meningeal signs, trachea midline, supple and nontender Resp Effort & Inspection: normal respiratory effort and able to speak in complete sentences Auscultation: clear to auscultation bilaterally Cardio Rate: regular rate Rhythm: regular rhythm GI Palpation: soft, not firm, no guarding, no pulsatile masses and nontender Auscultation: normal bowel sounds Back/Spine/Pelvis Back: no CVA tenderness and No back tenderness Skin General skin exam: no rashes or lesions noted Neuro General: patient alert, patient awake, patient oriented x3, moves all extremities and no focal motor deficits Cranial Nerves: CN's II-XI intact bilaterally Cognition: normal cognition Speech: speech normal Gait: normal gait Motor: muscle tone normal throughout Sensory Exam: no sensory deficits noted Extrem General: normal to inspection, full ROM, capillary refill normal, no pedal edema and no calf tenderness Psych Appearance: grossly normal Mental Status: mental status grossly normal Course Vital Signs Vital signs: Vital Signs Temperature 36.7 C 10/17/22 10:02 Pulse 66 10/17/22 10:02 Respiratory Rate 22 10/17/22 10:02 Blood Pressure 135/81 10/17/22 10:02 Pulse Oximetry 97 10/17/22 10:02 Temperature 36.7 C 10/17/22 10:02 Temperature Source Oral 10/17/22 10:02 Pulse 66 10/17/22 10:02 Respiratory Rate 22 10/17/22 10:02 Respiratory Effort 10/17/22 10:15 Respiratory Depth Normal 10/17/22 10:15 Respiratory Pattern Normal 10/17/22 10:15 Blood Pressure 135/81 10/17/22 10:02 Blood Pressure Position Sitting 10/17/22 10:02 Pulse Oximetry 97 10/17/22 10:02 Oxygen Delivery Method Room Air 10/17/22 10:02 Oxygen Flow Rate 0 10/17/22 10:02 Pain Level 8 10/17/22 10:02 Critical Care Time Critical Care Time Critical Care Time: Yes Total Critical Care Time: 45 Attestation: Upon my evaluation, this patient had a high probability of clinically significant, life-threatening deterioration due to their current medical conditions, which required my direct attention, intervention, and personal management. I have personally provided greater than 30 minutes of critical care time exclusive of the time spend on separately billable procedures. Time includes obtaining a history, examining the patient, pulse oximetry, review of laboratory data, radiology results, discussion with consultants, arranging urgent treatment with development of a management plan, evaluation of patient's response to treatment, and monitoring for potential decompensation. Interventions were performed as documented above.
--- NOTE | 2022-10-17 10:30 | DI.CT_ITS ---
Exam(s) CT HEAD WO EXAM: CT HEAD WO CLINICAL HISTORY: BIRD, blurry vision. TECHNIQUE: Imaging Protocol: Axial computed tomography images with coronal and sagittal reformatted images were created and reviewed COMPARISON: No exams were available for comparison FINDINGS: There are no skull fractures. There is no fluid in the visualized paranasal sinuses. There is an area of intra-axial hemorrhage in the right occipital lobe which measures 3.6 cm AP x 3.6 cm wide by 2.6 cm craniocaudal. There is some surrounding brain edema and adjacent extra-axial bloo d over the subjacent tentorium cerebella lie. There is no evidence of intra-axial hemorrhage in the posterior fossa. No blood within the ventricular system nor within the basal cisterns. No shift of midline structures IMPRESSION: There is a right occipital lobe hemorrhage with measurements as above. There is some surrounding lukas ma and mass effect as well as subjacent extra-axial acute blood over the ipsilateral tentorium. No e vidence of intra-axial hemorrhage within the cerebellar hemispheres. RADIATION DOSE DELIVERED: 838.79mGy.cm Total DLP DATA REPOSITORY: All CT scans at this facility are submitted to the National Radiology Data Registry (NRDR) Dose Index Registry (DIR) with the [employer] (A[employer]). RADIATION OPTIMIZATION: All CT scans at this facility use at least one of these dose optimization te chniques: automated exposure control; mA and/or kV adjustment per patient size (includes targeted exa ms where dose is matched to clinical indication); or iterative reconstruction.
[2022-10-17 10:35] LABS: Abs Immature Grans 0.02 10^3/uL (0.0-0.06); Absolute Basophil Count 0.02 10^3/uL (0.0-0.2); Absolute Eosinophil Count 0.03 10^3/uL (0.0-0.7); Absolute Lymphocyte Count 1.36 10^3/uL (1.2-3.4); Absolute Neutrophil Count 6.39 10^3/uL (1.2-6.7); Basophils % 0.2; Eosinophils % 0.3; HCT 35.9 % (36.0-46.0); HGB 11.7 g/dL (11.2-15.7); Immature Grans % 0.2; Lymphocytes % 15.8; MCHC 32.6 % (32.0-36.0); MCV 95 fL (80-95); MPV 10.4 fL (8.0-11.0); Monocytes % 9.3; Neutrophils % 74.2; Platelet Count 200 10^3/uL (130-400); RBC 3.78 10^6/uL (3.93-5.22); RDW 12.8 % (11.7-14.6); RDW-SD 44.4 fL; WBC 8.62 10^3/uL (4.4-10.8)
[2022-10-17 10:49] LABS: PTT Activated 21.2 sec (21.0-27.5)
[2022-10-17] MEDS: Normal Saline 1,000 ML 1000 ML IV (10:53)
[2022-10-17] MEDS: Ondansetron 4 MG/2 ML VIAL IVP (10:53)
[2022-10-17 10:59] LABS: ALT 20 U/L (14-59); AST 24 U/L (15-37); Albumin 3.7 g/dL (3.4-5.0); Alkaline Phosphatase 102 U/L (46-116); Anion Gap 9.6 mmol/L (3-11); BUN 20 mg/dL (7-18); Bilirubin, Total 0.8 mg/dL (0.2-1.0); CO2 26.4 mmol/L (21.0-32.0); CREATININE 1.5 mg/dL (0.55-1.02); Calcium 9.5 mg/dL (8.5-10.1); Chloride 104 mmol/L (98-107); Estimated GFR 35.45 (mL/min/1.73m2); Glucose 109 mg/dL (74-106); Potassium 4.3 mmol/L (3.5-5.1); Sodium 140 mmol/L (136-145); TSH (W/Ref FT4) 1.56 uIU/mL (0.36-3.74); Total Protein 7.5 g/dL (6.4-8.2); Troponin I < 50 ng/L (<or=60)
[2022-10-17 11:04] LABS: Bilirubin Negative (Negative); Blood Trace-intact (Negative); Clarity Clear (Clear); Glucose Negative (Negative); Ketones Negative (Negative); Leukocyte Esterase Small (Negative); Nitrite Negative (Negative); Urobilinogen 0.2 EU/dL (Up TO 0.2); pH 7.5 (5-8)
[2022-10-17 11:11] LABS: Bacteria Few HPF (Negative); C & S Indicated? No; Casts Negative LPF (Negative); Crystals Negative HPF (Negative); Epithelial Cells Few HPF (Negative); Mucus Trace (Negative); Other Cells Negative (Negative)
[2022-10-17 11:31] LABS: COVID-19 PCR Negative (Negative); Influenza A PCR Negative (Negative); Influenza B PCR Negative (Negative); RSV PCR Negative (Negative)
[2022-10-17 11:33] LABS: Source Nasopharynx
[2022-10-17 14:05] LABS: Troponin I < 50 ng/L (<or=60)
--- NOTE | 2022-10-20 08:28 | NUR.NOTE ---
Nursing Note: Jaqui from Radiology called stating that there was an order for a chest 2 view but there were no images in [employer]. I checked [employer], and the provider note. No images found and nothing noted in provider chart. Order was cancelled.
== END 2022-10-17 16:25 | disposition short-term general hospital (02) ==
PROVIDERS: Emergency Provider Physician Assistant; PCP Nurse Practitioner Family
DX: I62.9 Nontraumatic intracranial hemorrhage, unspecified (principal); N18.9 Chronic kidney disease, unspecified; D63.1 Anemia in chronic kidney disease; Z20.822 Contact with and (suspected) exposure to COVID-19; E07.89 Other specified disorders of thyroid
CPT/HCPCS: 80053; 87637; 93005; 96361; 96374; 96375; 99291; 70450; 81003; 81015; 83735; 84443; 84484; 85025; 85610; 85730; 93010; J0131; J2405

== ENCOUNTER 2022-11-01 05:32 | Emergency (ER) | payer MEDICARE, OTHER, SELFPAY ==
[2022-11-01] VITALS (53 sets, daily range): BP systolic 132–141; BP diastolic 52–69; PULSE 63–101; RESP 9–24; TEMP 36.5; O2SAT 92–98
--- NOTE | 2022-11-01 06:00 | DI.CT_ITS ---
Exam(s) CT HEAD - STROKE PROTOCOL EXAM: CT HEAD - STROKE PROTOCOL CLINICAL HISTORY: R frontal headache, r/o hemorrhage. TECHNIQUE: Imaging Protocol: Axial computed tomography images with coronal and sagittal reformatted images were created and reviewed COMPARISON: CT CT HEAD WO from 10/17/2022 FINDINGS: Ventricles and Extra axial spaces: Normal in size and morphology for the patient's age. Hemorrhage: None. Cerebral parenchyma: Interval partial resolution of previously noted right occipital intraparenchymal hemorrhage. Less surrounding white matter edema and mass effect. Previously noted subdural hematom a along the right tentorium has resolved. No new areas of hemorrhage or infarct. Midline shift: None. Brainstem/Cerebellum: Normal. Calvarium: Normal. Visualized Paranasal sinuses/Mastoids: Clear. Soft Tissues: Unremarkable. IMPRESSION: Resolution of previously noted right tentorial subdural hematoma. Improvement in parenchymal hemorrh age in the right occipital region. No new abnormalities. RADIATION DOSE DELIVERED: 692.14mGy.cm Total DLP DATA REPOSITORY: All CT scans at this facility are submitted to the National Radiology Data Registry (NRDR) Dose Index Registry (DIR) with the [employer] (ACR). RADIATION OPTIMIZATION: All CT scans at this facility use at least one of these dose optimization te chniques: automated exposure control; mA and/or kV adjustment per patient size (includes targeted exa ms where dose is matched to clinical indication); or iterative reconstruction.
--- NOTE | 2022-11-01 06:11 | W.ED.GENAD ---
Discharge Plan Disposition Patient Disposition: Home Condition: Stable Discharge Details Clinical Impression: Headache Primary Care Provider: Arti Rouse ED Provider: Jorge A Hussein Home Meds and New Rx's Prescriptions: Continued meloxicam 7.5 mg tablet 7.5 mg PO DAILY triamcinolone acetonide 0.1 % cream 1 applic topical BID PRN (Reason: rash) nitroglycerin [Nitrostat] 0.4 mg tablet, sublingual 0.4 mg SUBLINGUAL Q5-15M PRN (Reason: chest pain) Qty: 60 0RF vitamin B complex [B Complex-Vitamin B12] Tablet 1 tab PO DAILY Qty: 90 3RF magnesium L-lactate 84 mg tablet extended release 84 mg PO DAILY omeprazole 20 mg capsule,delayed release(DR/EC) 20 mg PO DAILY Qty: 90 2RF lorazepam 1 mg tablet 0.5 mg PO DAILY PRN (Reason: anxiety) Qty: 20 0RF levothyroxine 75 mcg tablet 75 mcg PO DAILY Qty: 90 3RF albuterol sulfate [Ventolin HFA] 90 mcg/actuation Hfa Aerosol Inhaler 2 puff INHALATION 6X/DAY PRN (Reason: Shortness Of Breath) Centrum Silver Women 8 mg iron-400 mcg-300 mcg Tablet 1 tab PO DAILY ICaps AREDS2 250 mg-200 unit -12.5 mg-1 mg Capsule 1 cap PO DAILY Discharge Instructions Instructions: Intracranial Hematoma (ED) Additional Instructions: Results of CT imaging were provided today. Please be sure to review these results with your neurologist. Call your neurologist on Thursday to arrange timely follow-up. Please contact your primary care physician to arrange follow-up. Please rest over the next week with no exertional activities. Take medication as prescribed. Return to the ER immediately for any worsening or new concerning symptoms. Referrals: Arti Rouse [Primary Care Provider] - Discharge Data Discharge Date/Time-TO BE ENTERED AT DEPARTURE: 11/01/22 10:16 Medical Decision Making 0550 -- 77-year-old female presents with right-sided frontal headache that awoke her from sleep at 1 AM. She was seen here on 10/17 for headache and diagnosed with intracranial hemorrhage and transferred to [facility]. She is unsure of all the events that [facility] but states she remained stable and had no interventional procedures. She admits to ongoing floaters in her left eye since her intracranial hemorrhage. Her blood pressure is moderately hypertensive. Remainder vitals within normal limits. She has no obvious focal deficits on exam. Consider repeat intracranial hemorrhage. Also consider ischemic stroke, dehydration, COVID, electrolyte abnormality. Will obtain screening labs, refer for noncontrast CT head. 0715 --CT reviewed and overall notes improvement in previously noted intracranial hemorrhage, no evidence of subdural hematoma and no acute hemorrhage noted. Case discussed with [facility] neurology who will review images and call back with recommendations. Patient informed of plan. She remains hemodynamically stable. Blood pressure 135/62. We will give a dose of IV Tylenol. 0750 --Case discussed with [facility] neurology Dr. Tavarez --she has reviewed the images and notes evolution but states it has improved and does not recommend any additional imaging. She states that it could be expected to have headaches for 2 months post hemorrhage until it fully resolves. Recommends 2 g IV magnesium and 1000 mg of Depakote IV. If patient responds well to this, recommends Depakote extended release 1000 mg every afternoon for 5 nights and follow-up with neurology in 3 months. 0800 -- Case endorsed to Dr. Hussein to f/u on patient response to medications and if improved, can discharge to home. Medical Records Medical records reviewed: Yes I reviewed the patient's medical records. Imaging Data Radiologic Study: Radiologist's impression: CT Head Without Contrast Exam date and time: 11/01/2022 6:31 AM Age: 77 years old Clinical indication: Stroke-like symptoms; Other: R frontal headache, R/O hemorrhage , recent hemorrhage on CT head TECHNIQUE: Imaging protocol: Computed tomography of the head without contrast. Radiation optimization: All CT scans at this facility use at least one of these dose optimization techniques: automated exposure control; mA and/or kV adjustment per patient size (includes targeted exams where dose is matched to clinical indication); or iterative reconstruction. Other technique: STROKE PROTOCOL was implemented. COMPARISON: CT HEAD WO 10/17/2022 11:32 AM FINDINGS: Brain: There is a small, 2.2 x 2.0 x 2.0 cm rounded area of hemorrhage within the inferior right occipital lobe, surrounded by a large area of vasogenic edema-like low density. The area of hemorrhage is markedly reduced in size and the prior right peritentorial subdural hematoma has resolved, since the previous head CT exam from 10/17/2022. Differential diagnosis principally includes a hemorrhagic stroke versus a hemorrhagic metastasis. No significant midline shift or transtentorial downward herniation of the brain. Mild age-appropriate cerebral atrophy with minimal patchy periventricular leukomalacia consistent with chronic underlying small vessel ischemic disease. Cerebral ventricles: No ventriculomegaly. Paranasal sinuses: Visualized sinuses are unremarkable. No fluid levels. Mastoid air cells: Visualized mastoid air cells are well aerated. Bones/joints: Unremarkable. No acute fracture. Soft tissues: Unremarkable. IMPRESSION: 1. There is a small, 2.2 x 2.0 x 2.0 cm rounded area of hemorrhage within the inferior right occipital lobe, surrounded by a large area of vasogenic edema-like low density. The area of hemorrhage is markedly reduced in size and the prior right peritentorial subdural hematoma has resolved, since the previous head CT exam from 10/17/2022.? The differential diagnosis principally includes a resolving hemorrhagic stroke versus a hemorrhagic metastasis. 2. No significant midline shift or transtentorial downward herniation of the brain. Mild age-appropriate cerebral atrophy with minimal patchy periventricular leukomalacia consistent with chronic underlying small vessel ischemic disease. HPI General Mode of arrival: ambulatory. Date/Time Provider Initiated Documentation: 11/01/22 05:50. Limitations to Documentation: no limitations. Information obtained by: patient. HPI Narrative: Patient is a 77-year-old female with a history of GERD, anxiety, and recent intracranial hemorrhage noted on CT scan when here in the ED for headache earlier this month presents for headache that awoke her from sleep at 1 AM. She states she took 2 tabs of Tylenol at 3 AM without relief. Patient states the headache is constant and sharp located in the right forehead. She denies any radiation of pain. She does admit to floaters in her left eye which has been chronic since her intracranial hemorrhage earlier this month. Patient was transferred to [facility] at that time and states her hemorrhage was stable and she had no interventional procedures or treatments. Patient states she is unsure of all the testing that was done at [facility] and does not recall if she had an MRI. Patient denies any blurry vision, slurred speech, chest pain, shortness of breath, dizziness, unilateral numbness or weakness or recent injury. Related Data Home Medications Medication Instructions Recorded Confirmed albuterol sulfate 90 mcg/actuation 2 puff inhalation 6X/DAY PRN 02/14/20 11/01/22 aerosol inhaler (Ventolin HFA) Shortness Of Breath multivit with 1 tab PO DAILY 02/14/20 11/01/22 [id number]-lutein 8 mg iron-400 mcg-300 mcg tablet (Centrum Silver Women) vit C 250 mg-vit E 200 unit-zinc 1 cap PO DAILY 02/14/20 11/01/22 ox 12.5 [id number]-zeax capsule (ICaps AREDS2) magnesium L-lactate 84 mg 84 mg PO DAILY 06/15/20 11/01/22 tablet,extended release triamcinolone acetonide 0.1 % 1 applic topical BID PRN rash 07/13/20 11/01/22 topical cream nitroglycerin 0.4 mg sublingual 0.4 mg sublingual Q5-15M PRN chest 11/08/20 11/01/22 tablet (Nitrostat) pain #60 tabs vitamin B complex (B 1 tab PO DAILY #90 tabs 11/19/20 11/01/22 Complex-Vitamin B12 tablet) omeprazole 20 mg capsule,delayed 20 mg PO DAILY #90 caps 06/26/21 11/01/22 release levothyroxine 75 mcg tablet 75 mcg PO DAILY #90 tabs 09/03/21 11/01/22 lorazepam 1 mg tablet 0.5 mg PO DAILY PRN anxiety #20 09/03/21 11/01/22 tabs meloxicam 7.5 mg tablet 7.5 mg PO DAILY 09/25/22 11/01/22 Previous Rx's Medication Instructions Recorded nitroglycerin 0.4 mg sublingual 0.4 mg sublingual Q5-15M PRN chest 11/08/20 tablet (Nitrostat) pain #60 tabs vitamin B complex (B 1 tab PO DAILY #90 tabs 11/19/20 Complex-Vitamin B12 tablet) omeprazole 20 mg capsule,delayed 20 mg PO DAILY #90 caps 06/26/21 release levothyroxine 75 mcg tablet 75 mcg PO DAILY #90 tabs 09/03/21 lorazepam 1 mg tablet 0.5 mg PO DAILY PRN anxiety #20 09/03/21 tabs Allergies Allergy/AdvReac Type Severity Reaction Status Date / Time sulfamethoxazole Allergy Unknown Skin Rash Verified 11/01/22 05:47 [From Bactrim] trimethoprim [From Bactrim] Allergy Unknown Skin Rash Verified 11/01/22 05:47 General Stated Complaint: Headache YO: 3 Review of Systems All systems reviewed & are unremarkable except as noted in HPI and below Constitutional Constitutional: Reports as per HPI, Denies chills, Denies fever(s) and Reports headache(s) Eyes Eyes: Denies blurry vision ENT Ears, Nose, Mouth, and Throat: Denies dizziness, Reports headache(s), Denies sore throat and Denies throat swelling Cardiovascular Cardiovascular: Denies chest pain and Denies dyspnea Respiratory Respiratory: Denies cough and Denies dyspnea Gastrointestinal Gastrointestinal: Denies abdominal pain, Denies diarrhea and Denies vomiting Genitourinary Genitourinary: Denies hematuria and Denies dysuria Musculoskeletal Musculoskeletal: Denies back pain and Denies numbness Integumentary/Breasts Skin/Breast: Denies lesions and Denies rash Neurologic Neurologic: Denies dizziness, Reports headache(s), Denies localized weakness and Denies numbness Allergic/Immunologic Allergic/Immunologic: Denies throat swelling PFSH All Active Problems (Updated 11/01/22 @ 09:53 by Jorge A Hussein MD) Intracranial hemorrhage (Acute) Headache (Acute) Unilateral primary osteoarthritis, left knee (Acute) DEPO MEDROL: 09/25/2022 Localized osteoarthritis of right knee (Acute) Benzodiazepine dependence (Chronic) Insomnia (Acute) Nocturnal leg cramps (Acute) Anxiety (Chronic) Hypothyroid (Chronic) Anemia (Chronic) Hearing loss (Acute) Diverticulitis (Chronic) Irritable bowel syndrome (Chronic) Arthropathy (Acute) Plantar fascial fibromatosis (Acute) Chronic kidney disease, stage 4 (severe) (Chronic) Rash (Acute) Medical History Anxiety Eczema GERD (gastroesophageal reflux disease) History of angina Pt. states a long time ago she had it when she goes down the stairs and comes up fast Hx of intestinal obstruction Surgical History History of cataract surgery History of colectomy History of oophorectomy Social History Smoking/Tobacco Use Status: Former Tobacco Use Quit Date: 09/14/07 Tobacco: How many years used: 15 Smoking risk assessment performed?: Yes Alcohol Intake: never Drug use: Never Substance use type: does not use Adopted: No Caregiver/Support person: No Foster care: No Household members: spouse Housing: house Number of Children: 5 number of grandchildren: 12 Communication Needs: Corrective Lenses Do you need help understanding health information?: Often current occupation: Retired Sexually active: Yes Do you think of yourself as: straight/heterosexual Current gender identity: female What type of physical activity do you participate in: walking Frequency: daily Thi/Yarsanism: Jain Seatbelt use: always Working smoke detector in home: Yes Fire extinguisher in home: Yes Carbon monox detector in home: Yes Do you feel safe at home: Yes Do you feel safe in your relationship?: Yes Exam Const General: cooperative and no acute distress Orientation: alert, awake and oriented x3 HENMT Head: normal to inspection Ears: hearing grossly normal bilaterally, external ears normal and TM's normal bilaterally Face and sinus: normal facial exam Mouth: oral mucosae normal Eyes General: appearance normal, both eyes and all related structures Pupils: PERRL EOM: EOM intact bilaterally Neck Neck: normal visual inspection and No submandibular swelling Lymphatic: no lymphadenopathy noted Chest Chest: normal inspection of the chest and no tenderness Resp Effort & Inspection: normal respiratory effort and able to speak in complete sentences Auscultation: clear to auscultation bilaterally Cardio Rate: regular rate Rhythm: regular rhythm GI Inspection: normal to inspection Palpation: soft, not firm, not rigid and nontender Auscultation: normal bowel sounds Skin General skin exam: no rashes or lesions noted Neuro General: patient alert, patient awake, patient oriented x3, moves all extremities and no meningeal signs Cranial Nerves: CN's II-XI intact bilaterally Cognition: normal cognition Speech: speech normal Motor: muscle tone normal throughout, strength 5/5 throughout and no pronator drift Sensory Exam: no sensory deficits noted Extrem General: normal to inspection, full ROM, capillary refill normal, no calf tenderness bilaterally and no edema Psych Appearance: grossly normal Mental Status: mental status grossly normal Speech and Movement: speech and movement normal Affect: normal affect Course Vital Signs Vital signs: Vital Signs Temperature 97.7 F 11/01/22 05:40 Pulse 101 H 11/01/22 05:40 Respiratory Rate 21 11/01/22 05:40 Blood Pressure 141/62 H 11/01/22 05:40 Pulse Oximetry 97 11/01/22 05:40 Temperature 97.7 F 11/01/22 05:40 Temperature Source Oral 11/01/22 05:40 Pulse 101 H 11/01/22 05:40 Respiratory Rate 21 11/01/22 05:40 Respiratory Effort Normal, Non-Labored 11/01/22 05:43 Blood Pressure 141/62 H 11/01/22 05:40 Blood Pressure Position Sitting 11/01/22 05:40 Pulse Oximetry 97 11/01/22 05:40 Oxygen Delivery Method Room Air 11/01/22 05:40 Oxygen Flow Rate 0 11/01/22 05:40 Pain Level 8 11/01/22 05:43 Sign Out Sign Out Data: Sign Out Comment: Headache since 1 AM. Transferred to [facility] recently for intracranial hemorrhage. Hemorrhage overall is decreased today on CT. Case discussed and imaging reviewed with [facility] neurology who does not recommend any additional imaging and recommended IV magnesium and IV Depakote for headache treatment. If patient's symptoms improved, plan for discharge to home with Depakote extended release 1000 mg QPM for a total of 5 nights and follow-up with neurology in 3 months. Last updated by Yue Og DO at 11/01/22 08:46
[2022-11-01 06:27] LABS: Source Nasal/Nares
[2022-11-01 06:28] LABS: Abs Immature Grans 0.02 10^3/uL (0.0-0.06); Absolute Basophil Count 0.05 10^3/uL (0.0-0.2); Absolute Eosinophil Count 0.19 10^3/uL (0.0-0.7); Absolute Lymphocyte Count 1.48 10^3/uL (1.2-3.4); Absolute Monocyte Count 0.54 10^3/uL (0.1-0.8); Absolute Neutrophil Count 5.13 10^3/uL (1.2-6.7); Basophils % 0.7; Eosinophils % 2.6; HCT 35.2 % (36.0-46.0); HGB 11.4 g/dL (11.2-15.7); Immature Grans % 0.3; MCHC 32.4 % (32.0-36.0); MCV 96 fL (80-95); Monocytes % 7.3; Neutrophils % 69.1; Platelet Count 257 10^3/uL (130-400); RBC 3.68 10^6/uL (3.93-5.22); RDW 12.6 % (11.7-14.6); WBC 7.41 10^3/uL (4.4-10.8)
[2022-11-01 06:55] LABS: ALT 20 U/L (14-59); AST 21 U/L (15-37); Albumin 3.8 g/dL (3.4-5.0); Alkaline Phosphatase 98 U/L (46-116); Anion Gap 6.2 mmol/L (3-11); BUN 19 mg/dL (7-18); Bilirubin, Total 0.5 mg/dL (0.2-1.0); CO2 27.8 mmol/L (21.0-32.0); CREATININE 1.3 mg/dL (0.55-1.02); Calcium 9.2 mg/dL (8.5-10.1); Chloride 107 mmol/L (98-107); Estimated GFR 42.09 (mL/min/1.73m2); Glucose 101 mg/dL (74-106); Potassium 4.6 mmol/L (3.5-5.1); Sodium 141 mmol/L (136-145); Total Protein 7.3 g/dL (6.4-8.2); Troponin I < 50 ng/L (<or=60)
--- NOTE | 2022-11-01 07:08 | DI.VRAD_ITS ---
PROCEDURE INFORMATION: Exam: CT Head Without Contrast Exam date and time: 11/01/2022 6:31 AM Age: 77 years old Clinical indication: Stroke-like symptoms; Other: R frontal headache, R/O hemorrhage , recent hemorrhage on CT head TECHNIQUE: Imaging protocol: Computed tomography of the head without contrast. Radiation optimization: All CT scans at this facility use at least one of these dose optimization techniques: automated exposure control; mA and/or kV adjustment per patient size (includes targeted exams where dose is matched to clinical indication); or iterative reconstruction. Other technique: STROKE PROTOCOL was implemented. COMPARISON: CT HEAD WO 10/17/2022 11:32 AM FINDINGS: Brain: There is a small, 2.2 x 2.0 x 2.0 cm rounded area of hemorrhage within the inferior right occipital lobe, surrounded by a large area of vasogenic edema-like low density. The area of hemorrhage is markedly reduced in size and the prior right peritentorial subdural hematoma has resolved, since the previous head CT exam from 10/17/2022. Differential diagnosis principally includes a hemorrhagic stroke versus a hemorrhagic metastasis. No significant midline shift or transtentorial downward herniation of the brain. Mild age-appropriate cerebral atrophy with minimal patchy periventricular leukomalacia consistent with chronic underlying small vessel ischemic disease. Cerebral ventricles: No ventriculomegaly. Paranasal sinuses: Visualized sinuses are unremarkable. No fluid levels. Mastoid air cells: Visualized mastoid air cells are well aerated. Bones/joints: Unremarkable. No acute fracture. Soft tissues: Unremarkable. IMPRESSION: 1. There is a small, 2.2 x 2.0 x 2.0 cm rounded area of hemorrhage within the inferior right occipital lobe, surrounded by a large area of vasogenic edema-like low density. The area of hemorrhage is markedly reduced in size and the prior right peritentorial subdural hematoma has resolved, since the previous head CT exam from 10/17/2022. The differential diagnosis principally includes a resolving hemorrhagic stroke versus a hemorrhagic metastasis. 2. No significant midline shift or transtentorial downward herniation of the brain. Mild age-appropriate cerebral atrophy with minimal patchy periventricular leukomalacia consistent with chronic underlying small vessel ischemic disease. ASSESSMENT: ASPECTS ([place] Stroke Program Early CT Score) is 10. THIS REPORT CONTAINS FINDINGS THAT MAY BE CRITICAL TO PATIENT CARE.: The findings were discussed via telephone conference with Yue Joseph at 11/01/2022 7:06 AM EST. The findings were acknowledged and understood. Dictated and Authenticated by: Jonathan Etienne MD. Ordering:JUAN Turner MD
[2022-11-01 07:11] LABS: COVID-19 PCR Negative (Negative)
[2022-11-01] MEDS: Normal Saline 500 ML IV (07:30)
[2022-11-01] MEDS: ACETAMINOPHEN 1,000 MG/100 ML BTL 400 MG IVPB (07:42)
[2022-11-01] MEDS: MAGNESIUM SULFATE 2 GM/50 ML BAG IVPB (08:23)
--- NOTE | 2022-11-01 09:49 | ED.PROG_ITS ---
Date of service: 11/01/22 Time of Service: 09:49 Medical Decision Making Care was signed out by Dr. Og, please see her documentation regarding initial ED presentation and course. Plan at signout was to reassess patient after analgesic treatment for her headache. Plan was for discharge if pain improved as per recommendations from [facility] neurology. Patient reassessed and notes complete resolution of her headache. Low plan for discharge with outpatient follow-up as discussed with neurology. Patient will be started on Depakote 1000 mg nightly x5 nights as recommended by neurology. Lab Data Lab results reviewed: Yes I reviewed the patient's lab results. Labs: Laboratory Tests Range/Units 11/01/22 11/01/22 11/01/22 06:21 06:21 06:21 WBC (4.4-10.8) 10^3/uL 7.41 RBC (3.93-5.22) 10^6/uL 3.68 L Hgb (11.2-15.7) g/dL 11.4 Hct (36.0-46.0) % 35.2 L MCV (80-95) fL 96 H MCH (27.0-33.0) pg 31.0 MCHC (32.0-36.0) % 32.4 RDW (11.7-14.6) % 12.6 Plt Count (130-400) 10^3/uL 257 MPV (8.0-11.0) fL 10.0 Immature Gran % 0.3 Neutrophils % 69.1 Lymphocytes % 20.0 Monocytes % 7.3 Eosinophils % 2.6 Basophils % 0.7 Nucleated RBC % (0.0-0.3) % 0.0 Absolute Neutrophils (1.2-6.7) 10^3/uL 5.13 Absolute Lymphocytes (1.2-3.4) 10^3/uL 1.48 Absolute Monocytes (0.1-0.8) 10^3/uL 0.54 Absolute Eosinophils (0.0-0.7) 10^3/uL 0.19 Absolute Basophils (0.0-0.2) 10^3/uL 0.05 Sodium (136-145) mmol/L 141 Potassium (3.5-5.1) mmol/L 4.6 Chloride (98-107) mmol/L 107 Carbon Dioxide (21.0-32.0) mmol/L 27.8 Anion Gap (3-11) mmol/L 6.2 BUN (7-18) mg/dL 19 H Creatinine (0.55-1.02) mg/dL 1.3 H Est GFR (CKD-EPI 2020) (mL/min/1.73m2) 42.09 Glucose (74-106) mg/dL 101 Calcium (8.5-10.1) mg/dL 9.2 Magnesium (1.8-2.4) mg/dL 2.0 Total Bilirubin (0.2-1.0) mg/dL 0.5 AST (15-37) U/L 21 ALT (14-59) U/L 20 Alkaline Phosphatase (46-116) U/L 98 Troponin I (<or=60) ng/L < 50 Total Protein (6.4-8.2) g/dL 7.3 Albumin (3.4-5.0) g/dL 3.8 COVID-19 Source Nasal/Nares SARS-CoV-2 (PCR) (Negative) Negative Sign Out Sign Out Data: Sign Out Comment: Headache since 1 AM. Transferred to [facility] recently for intracranial hemorrhage. Hemorrhage overall is decreased today on CT. Case discussed and imaging reviewed with [facility] neurology who does not recommend any additional imaging and recommended IV magnesium and IV Depakote for headache treatment. If patient's symptoms improved, plan for discharge to home with Depakote extended release 1000 mg QPM for a total of 5 nights and follow-up with neurology in 3 months. Last updated by Yue Og DO at 11/01/22 08:46 Discharge Plan Disposition Patient Disposition: Home Condition: Stable Discharge Details Clinical Impression: Headache Primary Care Provider: Arti Rouse ED Provider: Jorge A Hussein Home Meds and New Rx's Prescriptions: New divalproex [Depakote] 500 mg tablet,delayed release (DR/EC) 1,000 mg PO HS 5 Days Qty: 10 0RF Continued meloxicam 7.5 mg tablet 7.5 mg PO DAILY triamcinolone acetonide 0.1 % cream 1 applic topical BID PRN (Reason: rash) nitroglycerin [Nitrostat] 0.4 mg tablet, sublingual 0.4 mg SUBLINGUAL Q5-15M PRN (Reason: chest pain) Qty: 60 0RF vitamin B complex [B Complex-Vitamin B12] Tablet 1 tab PO DAILY Qty: 90 3RF magnesium L-lactate 84 mg tablet extended release 84 mg PO DAILY omeprazole 20 mg capsule,delayed release(DR/EC) 20 mg PO DAILY Qty: 90 2RF lorazepam 1 mg tablet 0.5 mg PO DAILY PRN (Reason: anxiety) Qty: 20 0RF levothyroxine 75 mcg tablet 75 mcg PO DAILY Qty: 90 3RF albuterol sulfate [Ventolin HFA] 90 mcg/actuation Hfa Aerosol Inhaler 2 puff INHALATION 6X/DAY PRN (Reason: Shortness Of Breath) Centrum Silver Women 8 mg iron-400 mcg-300 mcg Tablet 1 tab PO DAILY ICaps AREDS2 250 mg-200 unit -12.5 mg-1 mg Capsule 1 cap PO DAILY Discharge Instructions Instructions: Intracranial Hematoma (ED) Additional Instructions: Results of CT imaging were provided today. Please be sure to review these results with your neurologist. Call your neurologist on Thursday to arrange timely follow-up. Please contact your primary care physician to arrange follow-up. Please rest over the next week with no exertional activities. Take medication as prescribed. Return to the ER immediately for any worsening or new concerning symptoms. Referrals: Arti Rouse [Primary Care Provider] -
--- NOTE | 2022-11-01 09:50 | NUR.NOTE ---
pt notes improvement in headache. pt able to ambulate to restroom without difficulty. notes one episode of loose stools. MD reid
== END 2022-11-01 10:16 | disposition home or self-care (01) ==
PROVIDERS: Physician Assistant; Emergency Provider Student in an Organized Health Care Education/Training Program; PCP Nurse Practitioner Family
DX: R51.9 Headache, unspecified (principal); N18.4 Chronic kidney disease, stage 4 (severe); D63.1 Anemia in chronic kidney disease; Z20.822 Contact with and (suspected) exposure to COVID-19
CPT/HCPCS: 80053; 87635; 96361; 96365; 96366; 96368; 96375; 99284; 70450; 83735; 84484; 85025; J0131

== ENCOUNTER → 2023-01-30 07:59 | Outpatient (BNVA) | payer MEDICARE, OTHER, SELFPAY | PROVIDERS: PCP Nurse Practitioner Family; Referring Provider Nurse Practitioner Family; Visit Provider Physician Assistant | DX: M17.11 Unilateral primary osteoarthritis, right knee (principal); M17.12 Unilateral primary osteoarthritis, left knee | CPT/HCPCS: 20610; J1040 ==

== ENCOUNTER 2023-03-02 08:32 | Emergency (ER) | payer MEDICARE, OTHER, SELFPAY ==
[2023-03-02] VITALS (37 sets, daily range): BP systolic 100–148; BP diastolic 57–68; PULSE 65–85; RESP 12–23; O2SAT 89–96
--- NOTE | 2023-03-02 09:00 | DI.CT_ITS ---
Exam(s) CT HEAD WO EXAM: CT HEAD WO CLINICAL HISTORY: headache hx of SDH. TECHNIQUE: Imaging Protocol: Axial computed tomography images with coronal and sagittal reformatted images were created and reviewed COMPARISON: CT CT HEAD - STROKE PROTOCOL from 11/01/2022 FINDINGS: Ventricles and Extra axial spaces: Normal in size and morphology for the patient's age. Hemorrhage: None. Cerebral parenchyma: Atrophy. Old right occipital infarct. Midline shift: None. Brainstem/Cerebellum: Normal. Calvarium: Normal. Visualized Paranasal sinuses/Mastoids: Clear. Soft Tissues: Unremarkable. IMPRESSION: Old right occipital infarct. No acute intracranial process. RADIATION DOSE DELIVERED: 706.88mGy.cm Total DLP DATA REPOSITORY: All CT scans at this facility are submitted to the National Radiology Data Registry (NRDR) Dose Index Registry (DIR) with the [employer] ([employer]). RADIATION OPTIMIZATION: All CT scans at this facility use at least one of these dose optimization te chniques: automated exposure control; mA and/or kV adjustment per patient size (includes targeted exa ms where dose is matched to clinical indication); or iterative reconstruction.
[2023-03-02 09:02] LABS: ESR 16 mm/hr (0-30)
[2023-03-02 09:05] LABS: Abs Immature Grans 0.02 10^3/uL (0.0-0.06); Absolute Basophil Count 0.05 10^3/uL (0.0-0.2); Absolute Eosinophil Count 0.28 10^3/uL (0.0-0.7); Absolute Lymphocyte Count 1.27 10^3/uL (1.2-3.4); Absolute Monocyte Count 0.54 10^3/uL (0.1-0.8); Absolute Neutrophil Count 3.92 10^3/uL (1.2-6.7); Basophils % 0.8; Eosinophils % 4.6; HCT 34.8 % (36.0-46.0); HGB 11.6 g/dL (11.2-15.7); Immature Grans % 0.3; Lymphocytes % 20.9; MCHC 33.3 % (32.0-36.0); MCV 96 fL (80-95); MPV 10.1 fL (8.0-11.0); Monocytes % 8.9; Neutrophils % 64.5; Platelet Count 203 10^3/uL (130-400); RBC 3.63 10^6/uL (3.93-5.22); RDW 12.4 % (11.7-14.6); RDW-SD 43.8 fL; WBC 6.08 10^3/uL (4.4-10.8)
[2023-03-02 09:17] LABS: PTT Activated 24.7 sec (21.5-31.9); Prothrombin Time 10.1 sec (9.3-11.0)
[2023-03-02 09:41] LABS: ALT 19 U/L (14-59); AST 20 U/L (15-37); Albumin 3.3 g/dL (3.4-5.0); Alkaline Phosphatase 112 U/L (46-116); Anion Gap 6.9 mmol/L (3-11); BUN 18 mg/dL (7-18); Bilirubin, Total 0.4 mg/dL (0.2-1.0); C-Reactive Protein 0.24 mg/dL (0.0-0.3); CO2 28.1 mmol/L (21.0-32.0); CREATININE 1.3 mg/dL (0.55-1.02); Calcium 8.6 mg/dL (8.5-10.1); Chloride 110 mmol/L (98-107); Estimated GFR 42.09 (mL/min/1.73m2); Glucose 117 mg/dL (74-106); Potassium 4.5 mmol/L (3.5-5.1); Sodium 145 mmol/L (136-145); Total Protein 6.7 g/dL (6.4-8.2)
--- NOTE | 2023-03-02 10:09 | ED.GENADUL_ITS ---
Discharge Plan Disposition Patient Disposition: Home Discharge Details Clinical Impression: Headache, Chronic kidney disease (CKD) Primary Care Provider: Leidy Valdez ED Provider: Carmelo Hammond Home Meds and New Rx's Prescriptions: Continued triamcinolone acetonide 0.1 % cream 1 applic topical BID PRN (Reason: rash) nitroglycerin [Nitrostat] 0.4 mg tablet, sublingual 0.4 mg SUBLINGUAL Q5-15M PRN (Reason: chest pain) Qty: 60 0RF vitamin B complex [B Complex-Vitamin B12] Tablet 1 tab PO DAILY Qty: 90 3RF atorvastatin 40 mg tablet 40 mg PO DAILY magnesium L-lactate 84 mg tablet extended release 84 mg PO DAILY omeprazole 20 mg capsule,delayed release(DR/EC) 20 mg PO DAILY Qty: 90 2RF lorazepam 1 mg tablet 0.5 mg PO DAILY PRN (Reason: anxiety) Qty: 20 0RF levothyroxine 75 mcg tablet 75 mcg PO DAILY Qty: 90 3RF albuterol sulfate [Ventolin HFA] 90 mcg/actuation Hfa Aerosol Inhaler 2 puff INHALATION 6X/DAY PRN (Reason: Shortness Of Breath) Centrum Silver Women 8 mg iron-400 mcg-300 mcg Tablet 1 tab PO DAILY ICaps AREDS2 250 mg-200 unit -12.5 mg-1 mg Capsule 1 cap PO DAILY Discharge Instructions Instructions: General Headache (ED) Additional Instructions: You may continue to use [id number] acetaminophen as needed for your headaches. Please follow-up with your primary care provider for reassessment of your headache and return to the emergency department immediately for any new or significant worsening of your symptoms. Referrals: Leidy Valdez [Primary Care Provider] - 5 days (For reassessment of headache) Medical Decision Making Patient presenting to the emergency department for chief complaint of headache. Patient states dull right frontal headache for the past 3 days. Denies any other focal neurological symptoms and states she has been taking Tylenol. Patient does state some anxiety over having headaches given history of having a subdural hematoma in October. Patient denies all other symptoms. Physical exam shows no focal neurological deficits, normal cranial nerve exam normal peripheral neuro exam, normal cardiac respiratory exam. Patient is well- appearing with no acute distress and has stable vital signs. Patient is not hypertensive at this point. Based on patient's past medical history we will plan on checking labs and obtaining CT imaging. Pending results will give small fluid bolus and acetaminophen. Review of labs show an overall nondiagnostic CBC with no signs of infection, normal coagulation studies, CMP shows slightly elevated chloride at 110, creatinine 1.3 with a GFR 42.9 which is at patient's baseline, glucose slightly elevated at 117 and albumin at 3.3. Although the labs are within normal range. CT imaging reviewed along with radiologist interpretation that shows no acute findings. Patient reassessed and states significant improvement of headache after. Patient continued to report improvement of headache with fluids and Tylenol completing. Given no significant findings noted on physical exam or CT imaging of head will discharge patient home to monitor symptoms and return immediately if she has any new or worsening of her condition or focal neurological findings. After discussion of diagnosis and plan of care patient has no further needs, questions, or concerns and states clear understanding to return to the emergency department for any worsening symptoms. This documentation was generated using [employer] dictation system, please disregard any oddities of phrase or misspellings. Imaging Data Radiologic Study: Attestation: I personally reviewed and interpreted this imaging study as follows: Imaging: CT Scan Radiologist's impression: Exam(s) a CT:CT head wo Exam(s) CT HEAD WO EXAM: CT HEAD WO CLINICAL HISTORY: headache hx of SDH. TECHNIQUE: Imaging Protocol: Axial computed tomography images with coronal and sagittal reformatted images were created and reviewed COMPARISON: CT CT HEAD - STROKE PROTOCOL from 11/01/2022 FINDINGS: Ventricles and Extra axial spaces: Normal in size and morphology for the patient's age. Hemorrhage: None. Cerebral parenchyma: Atrophy. Old right occipital infarct. Midline shift: None. Brainstem/Cerebellum: Normal. Calvarium: Normal. Visualized Paranasal sinuses/Mastoids: Clear. Soft Tissues: Unremarkable. IMPRESSION: Old right occipital infarct. No acute intracranial process. HPI General Mode of arrival: ambulatory . Date/Time Provider Initiated Documentation: 03/02/23 08:35 . Limitations to Documentation: no limitations . Information obtained by: patient and RN notes reviewed . History of Present Illness 77 year old F presents to the emergency department with the chief complaint of Headache, described as moderate, Quality is described as aching, and is localized to the head. Patient reports no radiation. Patient started experiencing this day(s) (3) and it has been constant. No relieving factors improve symptom(s), No exacerbating factors reported . Patient notes no other symptoms.. Patient did receive the following treatments prior to arrival, other (Acetaminophen) Related Data Home Medications Medication Instructions Recorded Confirmed albuterol sulfate 90 mcg/actuation 2 puff inhalation 6X/DAY PRN 02/14/20 11/01/22 aerosol inhaler (Ventolin HFA) Shortness Of Breath multivit with 1 tab PO DAILY 02/14/20 03/02/23 ejpznewb-mfag-SS-lutein 8 mg iron-400 mcg-300 mcg tablet (Centrum Silver Women) vit C 250 mg-vit E 200 unit-zinc 1 cap PO DAILY 02/14/20 11/01/22 ox 12.5 wi-urnrcw-saydsu-zeax capsule (ICaps AREDS2) magnesium L-lactate 84 mg 84 mg PO DAILY 06/15/20 11/01/22 tablet,extended release triamcinolone acetonide 0.1 % 1 applic topical BID PRN rash 07/13/20 11/01/22 topical cream nitroglycerin 0.4 mg sublingual 0.4 mg sublingual Q5-15M PRN chest 11/08/20 03/02/23 tablet (Nitrostat) pain #60 tabs vitamin B complex (B 1 tab PO DAILY #90 tabs 11/19/20 03/02/23 Complex-Vitamin B12 tablet) omeprazole 20 mg capsule,delayed 20 mg PO DAILY #90 caps 06/26/21 03/02/23 release levothyroxine 75 mcg tablet 75 mcg PO DAILY #90 tabs 09/03/21 03/02/23 lorazepam 1 mg tablet 0.5 mg PO DAILY PRN anxiety #20 09/03/21 03/02/23 tabs atorvastatin 40 mg tablet 40 mg PO DAILY 01/30/23 03/02/23 Previous Rx's Medication Instructions Recorded nitroglycerin 0.4 mg sublingual 0.4 mg sublingual Q5-15M PRN chest 11/08/20 tablet (Nitrostat) pain #60 tabs vitamin B complex (B 1 tab PO DAILY #90 tabs 11/19/20 Complex-Vitamin B12 tablet) omeprazole 20 mg capsule,delayed 20 mg PO DAILY #90 caps 06/26/21 release levothyroxine 75 mcg tablet 75 mcg PO DAILY #90 tabs 09/03/21 lorazepam 1 mg tablet 0.5 mg PO DAILY PRN anxiety #20 09/03/21 tabs Allergies Allergy/AdvReac Type Severity Reaction Status Date / Time sulfamethoxazole Allergy Unknown Skin Rash Verified 03/02/23 08:38 [From Bactrim] trimethoprim [From Bactrim] Allergy Unknown Skin Rash Verified 03/02/23 08:38 General Stated Complaint: Headache YO: 3 Review of Systems Constitutional Constitutional: Denies body ache(s), Denies chills, Denies fever(s) and Reports headache(s) Eyes Eyes: Denies change in vision ENT Ears, Nose, Mouth, and Throat: Denies dizziness and Reports headache(s) Cardiovascular Cardiovascular: Denies chest pain and Denies syncope Gastrointestinal Gastrointestinal: Denies abdominal pain, Denies nausea and Denies vomiting Neurologic Neurologic: Reports as per HPI, Denies confusion, Denies dizziness, Denies syncope, Reports headache(s), Denies other visual disturbances, Denies sensory deficit and Denies paresthesias Psychiatric Psychiatric: Denies confusion PFSH All Active Problems (Updated 03/02/23 @ 11:32 by Carmelo Hammond NP) Headache (Acute) Chronic kidney disease (CKD) (Chronic) Unilateral primary osteoarthritis, left knee (Acute) DEPO MEDROL: 01/30/23; 09/25/2022 Localized osteoarthritis of right knee (Acute) Depo-medrol injection: 01/30/23 Benzodiazepine dependence (Chronic) Insomnia (Acute) Nocturnal leg cramps (Acute) Anxiety (Chronic) Hypothyroid (Chronic) Anemia (Chronic) Hearing loss (Acute) Diverticulitis (Chronic) Irritable bowel syndrome (Chronic) Arthropathy (Acute) Plantar fascial fibromatosis (Acute) Chronic kidney disease, stage 4 (severe) (Chronic) Rash (Acute) Medical History Anxiety Eczema GERD (gastroesophageal reflux disease) History of angina Pt. states a long time ago she had it when she goes down the stairs and comes up fast Hx of intestinal obstruction Surgical History History of cataract surgery History of colectomy History of oophorectomy Social History Smoking/Tobacco Use Status: Former Tobacco Use Quit Date: 09/14/07 Tobacco: How many years used: 15 Smoking risk assessment performed?: Yes Alcohol Intake: never Drug use: Never Substance use type: does not use Adopted: No Caregiver/Support person: No Foster care: No Household members: spouse Housing: house Number of Children: 5 number of grandchildren: 12 Communication Needs: Corrective Lenses Do you need help understanding health information?: Often current occupation: Retired Sexually active: Yes Do you think of yourself as: straight/heterosexual Current gender identity: female What type of physical activity do you participate in: walking Frequency: daily Thi/Tenriism: Mormon Seatbelt use: always Working smoke detector in home: Yes Fire extinguisher in home: Yes Carbon monox detector in home: Yes Do you feel safe at home: Yes Do you feel safe in your relationship?: Yes Exam Const General: cooperative, healthy appearing, no acute distress and well groomed Orientation: alert, awake and oriented x3 HENMT Head: normal to inspection Ears: TM's normal bilaterally Mouth: oral mucosae normal and moist mucous membranes Throat: posterior oropharynx normal Eyes Visual Del Castillo: normal visual del castillo by confrontation Alignment and Position: alignment normal Periorbital: periorbital findings normal Eyelids: eyelids normal Sclera: sclerae normal Pupils: PERRL EOM: EOM intact bilaterally Neck Neck: normal visual inspection, full ROM and no meningeal signs Resp Effort & Inspection: normal respiratory effort and able to speak in complete sentences Auscultation: clear to auscultation bilaterally Cardio Rate: regular rate Rhythm: regular rhythm Heart Sounds: S1 normal and S2 normal Neuro General: patient alert, patient awake, patient oriented x3, gait normal, tone normal, moves all extremities, CN's II-XI intact bilaterally and not confused Cognition: normal cognition Speech: speech normal Motor: muscle tone normal throughout, strength 5/5 throughout, no pronator drift, no movement abnormalities noted and no fasciculations Sensory Exam: no sensory deficits noted Coordination: pbnrjb-oh-moqz test normal, Does not sway with eyes open, rapid alternating movement UE normal and rapid alternating movement LE normal Course Vital Signs Vital signs: Vital Signs Pulse 85 03/02/23 08:35 Respiratory Rate 18 03/02/23 08:35 Blood Pressure 136/66 03/02/23 08:35 Pulse Oximetry 96 06/19/23 08:35 Pulse 85 03/02/23 08:35 Respiratory Rate 18 03/02/23 08:35 Respiratory Effort Normal, Non-Labored 03/02/23 08:39 Blood Pressure 136/66 03/02/23 08:35 Blood Pressure Position Sitting 03/02/23 08:35 Pulse Oximetry 96 03/02/23 08:35 Oxygen Delivery Method Room Air 03/02/23 08:35 Oxygen Flow Rate 0 03/02/23 08:35 Pain Level 8 03/02/23 09:00 Lab/Test Results Lab/Test Results: Laboratory Tests Range/Units 03/02/23 03/02/23 03/02/23 08:45 08:45 08:45 WBC (4.4-10.8) 10^3/uL 6.08 RBC (3.93-5.22) 10^6/uL 3.63 L Hgb (11.2-15.7) g/dL 11.6 Hct (36.0-46.0) % 34.8 L MCV (80-95) fL 96 H MCH (27.0-33.0) pg 32.0 MCHC (32.0-36.0) % 33.3 RDW (11.7-14.6) % 12.4 Plt Count (130-400) 10^3/uL 203 MPV (8.0-11.0) fL 10.1 Immature Gran % 0.3 Neutrophils % 64.5 Lymphocytes % 20.9 Monocytes % 8.9 Eosinophils % 4.6 Basophils % 0.8 Nucleated RBC % (0.0-0.3) % 0.0 Absolute Neutrophils (1.2-6.7) 10^3/uL 3.92 Absolute Lymphocytes (1.2-3.4) 10^3/uL 1.27 Absolute Monocytes (0.1-0.8) 10^3/uL 0.54 Absolute Eosinophils (0.0-0.7) 10^3/uL 0.28 Absolute Basophils (0.0-0.2) 10^3/uL 0.05 ESR (0-30) mm/hr 16 PT (9.3-11.0) sec INR (0.9-1.1) APTT (21.5-31.9) sec Sodium Cancelled Potassium Cancelled Chloride Cancelled Carbon Dioxide Cancelled Anion Gap Cancelled BUN Cancelled Creatinine Cancelled Est GFR (CKD-EPI 2020) Cancelled Glucose Cancelled Calcium Cancelled Total Bilirubin Cancelled AST Cancelled ALT Cancelled Alkaline Phosphatase Cancelled C-Reactive Protein Total Protein Cancelled Albumin Cancelled Range/Units 03/02/23 03/02/23 03/02/23 08:45 08:45 09:15 WBC (4.4-10.8) 10^3/uL RBC (3.93-5.22) 10^6/uL Hgb (11.2-15.7) g/dL Hct (36.0-46.0) % MCV (80-95) fL MCH (27.0-33.0) pg MCHC (32.0-36.0) % RDW (11.7-14.6) % Plt Count (130-400) 10^3/uL MPV (8.0-11.0) fL Immature Gran % Neutrophils % Lymphocytes % Monocytes % Eosinophils % Basophils % Nucleated RBC % (0.0-0.3) % Absolute Neutrophils (1.2-6.7) 10^3/uL Absolute Lymphocytes (1.2-3.4) 10^3/uL Absolute Monocytes (0.1-0.8) 10^3/uL Absolute Eosinophils (0.0-0.7) 10^3/uL Absolute Basophils (0.0-0.2) 10^3/uL ESR (0-30) mm/hr PT (9.3-11.0) sec 10.1 INR (0.9-1.1) 1.0 APTT (21.5-31.9) sec 24.7 Sodium Cancelled 145 Potassium Cancelled 4.5 Chloride Cancelled 110 H Carbon Dioxide Cancelled 28.1 Anion Gap Cancelled 6.9 BUN Cancelled 18 Creatinine Cancelled 1.3 H Est GFR (CKD-EPI 2020) Cancelled 42.09 Glucose Cancelled 117 H Calcium Cancelled 8.6 Total Bilirubin Cancelled 0.4 AST Cancelled 20 ALT Cancelled 19 Alkaline Phosphatase Cancelled 112 C-Reactive Protein Cancelled 0.24 Total Protein Cancelled 6.7 Albumin Cancelled 3.3 L
[2023-03-02] MEDS: Normal Saline 500 ML IV (10:25)
== END 2023-03-02 11:42 | disposition home or self-care (01) ==
PROVIDERS: Emergency Provider Nurse Practitioner Family; PCP Nurse Practitioner Family
DX: R51.9 Headache, unspecified (principal); N18.9 Chronic kidney disease, unspecified
CPT/HCPCS: 80053; 85652; 96365; 99284; 70450; 85025; 85610; 85730; 86140; J0131

== ENCOUNTER 2023-03-24 18:36 | Outpatient (REF) | payer MEDICARE, OTHER, SELFPAY ==
[2023-03-24 21:07] LABS: Abs Immature Grans 0.02 10^3/uL (0.0-0.06); Absolute Basophil Count 0.06 10^3/uL (0.0-0.2); Absolute Eosinophil Count 0.49 10^3/uL (0.0-0.7); Absolute Lymphocyte Count 1.71 10^3/uL (1.2-3.4); Absolute Monocyte Count 0.57 10^3/uL (0.1-0.8); Absolute Neutrophil Count 4.06 10^3/uL (1.2-6.7); Basophils % 0.9; Eosinophils % 7.1; HCT 36.3 % (36.0-46.0); HGB 11.7 g/dL (11.2-15.7); Immature Grans % 0.3; Lymphocytes % 24.7; MCH 31.6 pg (27.0-33.0); MCHC 32.2 % (32.0-36.0); MCV 98 fL (80-95); MPV 11.3 fL (8.0-11.0); Monocytes % 8.2; Neutrophils % 58.8; Platelet Count 211 10^3/uL (130-400); RDW 12.7 % (11.7-14.6); RDW-SD 45.8 fL; WBC 6.91 10^3/uL (4.4-10.8)
[2023-03-24 21:47] LABS: ALT 38 U/L (14-59); AST 47 U/L (15-37); Albumin 3.7 g/dL (3.4-5.0); Alkaline Phosphatase 137 U/L (46-116); Anion Gap 7.6 mmol/L (3-11); BUN 21 mg/dL (7-18); Bilirubin, Total 0.3 mg/dL (0.2-1.0); CO2 27.4 mmol/L (21.0-32.0); CREATININE 1.5 mg/dL (0.55-1.02); Calcium 8.9 mg/dL (8.5-10.1); Chloride 108 mmol/L (98-107); Estimated GFR 35.45 (mL/min/1.73m2); Glucose 128 mg/dL (74-106); Magnesium 2.1 mg/dL (1.8-2.4); Potassium 4.5 mmol/L (3.5-5.1); Sodium 143 mmol/L (136-145); TSH 2.01 uIU/mL (0.36-3.74); Total Protein 7.2 g/dL (6.4-8.2); Troponin I < 50 ng/L (<or=60)
== END 2023-03-24 18:37 | disposition home or self-care (01) ==
LOC: NCHCN 18:36
PROVIDERS: PCP Nurse Practitioner Family; Visit Provider Nurse Practitioner Family
DX: R06.09 Other forms of dyspnea (principal); R07.89 Other chest pain; R25.2 Cramp and spasm; E03.9 Hypothyroidism, unspecified; R73.09 Other abnormal glucose
CPT/HCPCS: 80053; 83036; 83735; 84443; 84484; 85025

== ENCOUNTER 2023-05-22 11:06 | Outpatient (CLI) | payer MEDICARE, OTHER, SELFPAY ==
--- NOTE | 2023-05-22 10:15 | DI.RAD_ITS ---
Exam(s) XR KNEE LT 3V AP,LAT,RITO EXAM: XR KNEE LT 3V AP,LAT,RITO CLINICAL HISTORY: LEFT KNEE OA. TECHNIQUE: 2D digital imaging was performed of the left knee. Three images were obtained. AP, late ral and PA tunnel views were obtained. COMPARISON: CR XR KNEE LT 3V AP,LAT,RITO from 04/17/2022 FINDINGS: BONES: No acute fracture is present. No bony destructive lesion is seen. JOINTS: There is narrowing of the lateral femoral tibial joint. Osteophytes are seen at the posterio r patella and in the lateral femoral tibial joint. There is a small joint effusion present. No loos e body. SOFT TISSUE: Normal. IMPRESSION: Degenerative changes of the left knee. DATA REPOSITORY: RADIATION DOSE DELIVERED:
== END 2023-05-22 11:07 | disposition home or self-care (01) ==
LOC: DIORS 11:06
PROVIDERS: PCP Nurse Practitioner Family; Referring Provider Nurse Practitioner Family; Visit Provider Student in an Organized Health Care Education/Training Program
DX: M17.12 Unilateral primary osteoarthritis, left knee (principal)
CPT/HCPCS: 20610; 73562; J1040

== ENCOUNTER → 2023-07-28 00:08 | Outpatient (CLI) | payer MEDICARE, OTHER, SELFPAY ==
--- NOTE | 2023-07-28 | DI.MAMMO_ITS ---
Exam(s) MAMMO SCREENING EXAM: MAMMO SCREENING CLINICAL HISTORY: Screening Z12.39 TECHNIQUE: Mammograms were interpreted according to the usual protocol including computer analysis w [employer] CAD system, tomosynthesis and C-view imaging. COMPARISON: 2012 through 2018 FINDINGS: The breasts are composed of scattered fibroglandular densities, Breast Density category B. No suspicious masses or suspicious microcalcifications are seen. No skin thickening or abnormal axillary lymph nodes are seen. There has been no significant change from prior exams. IMPRESSION: BI-RADS Category 1, Negative mammogram Yearly screening mammography is recommended. Breast Density - Category B, scattered fibroglandular densities. A negative radiographic report should not delay biopsy if a dominant or clinically suspicious mass is present. Up to ten percent of cancers are not identified on mammography. A negative report may reinforce clinical impression. Adenosis and dense breasts may obscure an underlying neoplasm. False positive reports average 6 to 10%. Patient will receive a letter notifying them of these results.
== END ==
PROVIDERS: PCP Nurse Practitioner Family; Visit Provider Nurse Practitioner Family
DX: Z12.31 Encounter for screening mammogram for malignant neoplasm of breast (principal)
CPT/HCPCS: 77063; 77067

== ENCOUNTER → 2023-09-28 13:35 | Outpatient (BNVA) | payer MEDICARE, OTHER, SELFPAY | PROVIDERS: PCP Nurse Practitioner Family; Referring Provider Nurse Practitioner Family | DX: M17.12 Unilateral primary osteoarthritis, left knee (principal) | CPT/HCPCS: 20610; J1040 ==

== ENCOUNTER 2023-10-13 15:04 | Outpatient (REF) | payer MEDICARE, OTHER, SELFPAY ==
[2023-10-13 19:11] LABS: ALT 22 U/L (14-59); AST 18 U/L (15-37); Alkaline Phosphatase 102 U/L (46-116); Anion Gap 8.1 mmol/L (3-11); BUN 34 mg/dL (7-18); Bilirubin, Total 0.4 mg/dL (0.2-1.0); CO2 28.9 mmol/L (21.0-32.0); CREATININE 1.5 mg/dL (0.55-1.02); Calcium 8.9 mg/dL (8.5-10.1); Calculated LDL 43 mg/dL (<100); Chloride 108 mmol/L (98-107); Cholesterol 139 mg/dL (<200); Estimated GFR 35.23 (mL/min/1.73m2); Glucose 94 mg/dL (74-106); HDL Cholesterol 48 mg/dL (40-60); Magnesium 2.1 mg/dL (1.8-2.4); Sodium 145 mmol/L (136-145); TSH 1.53 uIU/mL (0.36-3.74); Total Protein 7.3 g/dL (6.4-8.2); Triglyceride 243 mg/dL (<150)
== END 2023-10-13 15:05 | disposition home or self-care (01) ==
LOC: NCHCN 15:04
PROVIDERS: PCP Nurse Practitioner Family; Visit Provider Nurse Practitioner Family
DX: E03.9 Hypothyroidism, unspecified (principal); E78.5 Hyperlipidemia, unspecified; R73.09 Other abnormal glucose; N18.4 Chronic kidney disease, stage 4 (severe); R25.2 Cramp and spasm
CPT/HCPCS: 80053; 80061; 83036; 83735; 84439; 84443

== ENCOUNTER 2023-11-23 15:40 | Outpatient (CLI) | payer MEDICARE, OTHER, SELFPAY ==
--- NOTE | 2023-11-23 13:30 | DI.RAD_ITS ---
Exam(s) XR STANDING ALIGNMENT EXAM: XR STANDING ALIGNMENT CLINICAL HISTORY: L TKR planning. TECHNIQUE: 2D digital imaging was performed. Four images were obtained. COMPARISON: CR XR KNEE RT 3V AP,LAT,RITO from 04/17/2022 CR XR KNEE LT 3V AP,LAT,RITO from 04/17/2022 CR XR KNEE LT 3V AP,LAT,RITO from 05/22/2023 FINDINGS: BONES: The hips are well maintained. In the right knee, there is mild narrowing of the joint space a nd small osteophytes in the lateral femoral tibial joint. In the left knee, there is moderate narrow ing of the lateral femoral tibial joint in addition small osteophytes are seen laterally.. The ankle s are well maintained.There is no significant leg length discrepancy. SOFT TISSUE: Vascular calcifications are present. IMPRESSION: Bilateral osteoarthritis of the knees, left greater than right. DATA REPOSITORY: RADIATION DOSE DELIVERED:
== END 2023-11-23 15:41 | disposition home or self-care (01) ==
LOC: DIORS 15:40
PROVIDERS: PCP Nurse Practitioner Family; Referring Provider Nurse Practitioner Family; Visit Provider Student in an Organized Health Care Education/Training Program
DX: M17.12 Unilateral primary osteoarthritis, left knee (principal)
CPT/HCPCS: 99213; 77073

== ENCOUNTER 2023-12-14 05:26 | Outpatient (CLI) | payer MEDICARE, OTHER, SELFPAY ==
[2023-12-14 15:43] LABS: HCT 36.8 % (36.0-46.0); HGB 11.8 g/dL (11.2-15.7); MCH 31.6 pg (27.0-33.0); MCHC 32.1 % (32.0-36.0); MCV 99 fL (80-95); MPV 10.3 fL (8.0-11.0); Platelet Count 244 10^3/uL (130-400); RBC 3.73 10^6/uL (3.93-5.22); RDW 13.2 % (11.7-14.6); RDW-SD 47.3 fL
[2023-12-14 16:10] LABS: BUN 21 mg/dL (7-18); CREATININE 1.4 mg/dL (0.55-1.02); Chloride 109 mmol/L (98-107); Estimated GFR 38.27 (mL/min/1.73m2); Glucose 109 mg/dL (74-106); Potassium 4.2 mmol/L (3.5-5.1); Sodium 146 mmol/L (136-145)
== END 2023-12-14 05:27 | disposition home or self-care (01) ==
PROVIDERS: PCP Nurse Practitioner Family; Visit Provider Student in an Organized Health Care Education/Training Program
DX: M17.12 Unilateral primary osteoarthritis, left knee (principal); Z01.818 Encounter for other preprocedural examination
CPT/HCPCS: 36415; 80048; 85027

== ENCOUNTER 2023-12-23 07:17 | Inpatient (IN) | payer MEDICARE, OTHER, SELFPAY ==
[2023-12-23] VITALS (16 sets, daily range): BP systolic 85–157; BP diastolic 39–97; PULSE 66–94; RESP 14–22; TEMP 35.6–36.5; O2SAT 89–96; BMI 26.4
--- NOTE | 2023-12-23 07:18 | W.PM.DSUDISC ---
Date of service: 12/23/23 Time of Service: 07:18 Discharge Plan Disposition Patient Disposition: Home Condition: Good Discharge Details Reason For Visit: L TKR Attending Provider: Mateo Barnhart Primary Care Provider: Leidy Valdez Home Meds and New Rx's Prescriptions: New celecoxib 200 mg capsule 200 mg PO BID Qty: 60 0RF aspirin 81 mg tablet,delayed release (DR/EC) 81 mg PO BID Qty: 60 0RF acetaminophen 500 mg tablet 1,000 mg PO TID Qty: 90 3RF dexamethasone 4 mg tablet 4 mg PO DAILY Qty: 2 0RF gabapentin 300 mg capsule 300 mg PO QHS Qty: 14 0RF oxycodone 5 mg tablet 5 mg PO Q4H MDD 6 tabs PRN (Reason: pain) Qty: 20 0RF Continued magnesium oxide 500 mg capsule 500 mg PO DAILY triamcinolone acetonide 0.1 % cream 1 applic topical BID PRN (Reason: rash) vitamin B complex [B Complex-Vitamin B12] Tablet 1 tab PO DAILY Qty: 90 3RF omeprazole 20 mg capsule,delayed release(DR/EC) 20 mg PO DAILY Qty: 90 2RF lorazepam 1 mg tablet 0.5 mg PO DAILY PRN (Reason: anxiety) Qty: 20 0RF levothyroxine 75 mcg tablet 75 mcg PO DAILY Qty: 90 3RF Centrum Silver Women 8 mg iron-400 mcg-300 mcg Tablet 1 tab PO DAILY ICaps AREDS2 250 mg-200 unit -12.5 mg-1 mg Capsule 1 cap PO DAILY Discharge Instructions Additional Instructions: Total Knee Discharge Instructions Activity: The most important activity is to walk and to work on gentle motion (both flexion and extension). You should try to take short walks a few times a day. It is important that when resting you work on keeping the knee straight. Avoid putting a pillow behind the knee as this will encourage flexion. Work on range of motion exercises as provided by Physical Therapy. - Start outpatient physical therapy within 2 weeks. - You should wear the GIOVANNI hose on both legs for 2 weeks. You may remove these at night. You may also use any compression sock in place of the GIOVANNI hose. - Utilize [employer] to review exercises, see videos on exercises and obtain basic information pertaining to your surgery and your recovery. Dressing: Remove the Adrián wrap by 2 days after your surgery and put on the GIOVANNI stocking given to you from the hospital. Keep the surgical dressing (underneath the ADRIÁN wrap) in place for at least one week. After the first week it may be removed and replaced with light gauze and tape or nothing. The wound and dressing may get wet after 3 days but avoid soaking the dressing or otherwise it will need to be changed. Many people prefer covering the dressing with cling wrap (saran wrap) to minimize it from getting soaked. If it gets wet, just pat dry. If it starts to peel off then it will need to be changed. Medications: - You should take Tylenol and anti-inflammatory Celebrex as your primary pain control medications. If the Celebrex is too expensive or not covered, please call the office for another alternative (Advil/Ibuprofen or Naproxen/Aleve) - You have been prescribed a stronger pain medication Oxycodone for breakthrough pain, take as needed as prescribed. - You will continue your omeprazole to help reduce stomach acid and reflux. - You have been prescribed Gabapentin to take at night for restlessness and nerve pain. - You will be taking Aspirin 81mg twice a day for DVT prevention unless instructed otherwise. - You have also been prescribed Decadron to take to control post-operative nausea and pain. You will start this tomorrow. - If you have constipation you should take Colace or Miralax (both dxoh-tew-fqnzgmo). It takes most people 3-4 days to have a bowel movement. Follow-up: 2 weeks If you have any acute concerns or questions, please do not hesitate to contact the office at [phone]. You may contact Dr. Barnhart with any questions after hours through the hospital at [phone] or on his cell phone at [phone]. Referrals: Mateo Barnhart MD [ [facility] STAFF PHYSICIAN] - Equipment/Supplies: Walker Activity:: Activity as Tolerated Shower/Bathe:: 72 hours Diet:: As Tolerated DS: Diagnosis Discharge Diagnosis (1) Unilateral primary osteoarthritis, left knee: Status: Acute
[2023-12-23] MEDS: Gabapentin 300 MG CAP PO (07:29)
[2023-12-23] MEDS: Acetaminophen 500 MG TAB 1000 MG PO ×3 (07:29→20:19)
[2023-12-23] MEDS: Celecoxib 200 MG CAP 400 MG PO (07:29)
--- NOTE | 2023-12-23 07:36 | ANES.PREOP_ITS ---
General Info Date of Service Date Performed: 12/23/23 Height: 5 ft 4 in Weight: 69.7 kg Body Mass Index (BMI): 26.4 Surgical Procedure: Operation Date: 12/23/23 09:40 Proposed Procedure Side Surgeon p Knee Total Arthroplasty w/OrthAlign, Cementless CR possibly cemented Left Mateo Barnhart MD Meds Allergies and Home Medications Allergies Allergy/AdvReac Type Severity Reaction Status Date / Time sulfamethoxazole Allergy Unknown Skin Rash Verified 12/23/23 07:19 [From Bactrim] trimethoprim [From Bactrim] Allergy Unknown Skin Rash Verified 12/23/23 07:19 Home Medication Medication Instructions Recorded xadgupws-whro-csoo 8 mg-folic 400 1 tab PO DAILY 02/14/20 mcg-K 50 mcg-lutein 300 mcg tablet (Centrum Silver Women) vit C 250 mg-vit E 200 unit-zinc 1 cap PO DAILY 02/14/20 ox 12.5 pv-qnvnvw-wkxcvw-zeax capsule (ICaps AREDS2) triamcinolone acetonide 0.1 % 1 applic topical BID PRN rash 07/13/20 topical cream vitamin B complex (B 1 tab PO DAILY #90 tabs 11/19/20 Complex-Vitamin B12 tablet) omeprazole 20 mg capsule,delayed 20 mg PO DAILY #90 caps 06/26/21 release levothyroxine 75 mcg tablet 75 mcg PO DAILY #90 tabs 09/03/21 lorazepam 1 mg tablet 0.5 mg (1/2 x 1 mg) PO DAILY PRN 09/03/21 anxiety #20 tabs magnesium oxide 500 mg capsule 500 mg PO DAILY 12/14/23 acetaminophen 500 mg tablet 1,000 mg (2 x 500 mg) PO TID #90 12/23/23 tabs aspirin 81 mg tablet,delayed 81 mg PO BID #60 tabs 12/23/23 release celecoxib 200 mg capsule 200 mg PO BID #60 caps 12/23/23 dexamethasone 4 mg tablet 4 mg PO DAILY #2 tabs 12/23/23 gabapentin 300 mg capsule 300 mg PO QHS #14 caps 12/23/23 oxycodone 5 mg tablet 5 mg PO Q4H PRN pain #20 tabs 12/23/23 Current Visit Medications: Current Medications Generic Name Dose Route Start Last Admin Trade Name Freq PRN Reason Stop Dose Admin Acetaminophen 1,000 mg 12/23/23 06:00 12/23/23 07:29 Acetaminophen 500 Mg Tab PO 01/22/24 05:59 1,000 mg PREOP LAUREN Administration Acetaminophen 1,000 mg 12/23/23 07:16 Acetaminophen 500 Mg Tab PO 01/22/24 08:29 TID PRN Analgesia Celecoxib 400 mg 12/23/23 06:00 12/23/23 07:29 Celecoxib 200 Mg Cap PO 01/22/24 05:59 400 mg PREOP LAUREN Administration Docusate Sodium 100 mg 12/23/23 07:16 Docusate Sodium 100 Mg Cap PO 01/22/24 07:15 BID PRN PRN Constipation Gabapentin 300 mg 12/23/23 06:00 12/23/23 07:29 Gabapentin 300 Mg Cap PO 01/22/24 05:59 300 mg PREOP LAUREN Administration Ringer's Solution 1,000 mls @ 80 mls/hr 12/23/23 06:00 IV 01/21/24 23:59 INFUSION LAUREN Cefazolin Sodium/Dextrose 2 gm in 50 mls @ 100 mls/hr 12/23/23 06:00 Ancef Duplex IVPB 01/21/24 23:59 PREOP LAUREN Tranexamic Acid/Sodium Chloride 1,000 mg in 100 mls @ 600 mls/hr 12/23/23 06:00 IVPB 01/21/24 23:59 PREOP LAUREN IV Miscellaneous Supplies 1 each 12/23/23 06:00 Iv Access IV 01/21/24 23:59 DIRECTED LAUREN Ondansetron HCl 4 mg 12/23/23 07:16 Ondansetron 4 Mg/2 Ml Vial IVP 01/22/24 07:15 Q6H PRN PRN Nausea Oxycodone HCl 0 mg 12/23/23 07:16 Oxycodone 5 Mg Tab PO 01/22/24 07:15 Q3H PRN PRN Pain Polyethylene Glycol 17 gm 12/23/23 07:16 Polyethylene Glycol 3350 17 Gm Packet PO 01/22/24 07:15 BID PRN PRN Constipation Sodium Chloride 0 ml 12/23/23 06:00 Normal Saline Flush 10 Ml Syr IV 01/21/24 23:59 PRN PRN Sodium Chloride 0 ml 12/23/23 06:00 Normal Saline 10 Ml Vial IJ 01/21/24 23:59 DIRECTED PRN Sterile Water 0 ml 12/23/23 06:00 Water,Injection,Sterile 10 Ml Vial IJ 01/21/24 23:59 DIRECTED PRN PFSH Active Problems Active Problems: Problem Status Onset Code Unilateral primary osteoarthritis, left knee M17.12 Localized osteoarthritis of right knee M17.11 Benzodiazepine dependence F13.20 Insomnia G47.00 Nocturnal leg cramps G47.62 Anxiety F41.9 Hypothyroid E03.9 Anemia D64.9 Hearing loss H91.90 Diverticulitis K57.92 Irritable bowel syndrome K58.9 Arthropathy M12.9 Plantar fascial fibromatosis M72.2 Chronic kidney disease, stage 4 (severe) N18.4 Rash R21 Medical History Medical History Anxiety Eczema GERD (gastroesophageal reflux disease) History of angina Pt. states a long time ago she had it when she goes down the stairs and comes up fast Hx of intestinal obstruction Surgical History Surgical History History of cataract surgery History of colectomy History of oophorectomy Tobacco Smoking/Tobacco Use Status: Former Tobacco Use Alcohol Alcohol Intake: never Substance Use Substance use: Never Substance use type: does not use Vital Signs and Lab Results Vital Signs Most Recent Vital Signs in EMR: Most Recent Vital Signs Temp Pulse Resp BP Pulse Ox 36.4 C L 94 H 18 135/59 L 96 12/23/23 07:21 12/23/23 07:21 12/23/23 07:21 12/23/23 07:21 12/23/23 07:21 Lab Results Blood Type / Crossmatch: No Data to Display Complete Blood Count: White Blood Count 7.80 10^3/uL (4.4-10.8) 12/14/23 15:08 Red Blood Count 3.73 10^6/uL (3.93-5.22) L 12/14/23 15:08 Hemoglobin 11.8 g/dL (11.2-15.7) 12/14/23 15:08 Hematocrit 36.8 % (36.0-46.0) 12/14/23 15:08 Platelet Count 244 10^3/uL (130-400) 12/14/23 15:08 Complete Metabolic Panel: Sodium 146 mmol/L (136-145) H 12/14/23 15:08 Potassium 4.2 mmol/L (3.5-5.1) 12/14/23 15:08 Chloride 109 mmol/L (98-107) H 12/14/23 15:08 Carbon Dioxide 26.0 mmol/L (21.0-32.0) 12/14/23 15:08 BUN 21 mg/dL (7-18) H 12/14/23 15:08 Creatinine 1.4 mg/dL (0.55-1.02) H 12/14/23 15:08 Est GFR (CKD-EPI 2020) 38.27 (mL/min/1.73m2) 12/14/23 15:08 Calcium 9.0 mg/dL (8.5-10.1) 12/14/23 15:08 Glucose 109 mg/dL (74-106) H 12/14/23 15:08 Liver Function Panel: No Data to Display Coagulation Panel: No Data to Display Cardiac Panel: No Data to Display Arterial Blood Gas: No Data to Display Venous Blood Gas: No Data to Display Pancreas Panel: No Data to Display Thyroid Panel: No Data to Display Infectious Disease: No Data to Display Blood Cultures: No Data to Display Toxicology Panel: No Data to Display Imaging and Studies Imaging and Studies Study information below may be from another EMR and interpreted by another provider. Please see original notes in EMR for more complete details. EKG Summary: EKG PATIENT NAME: Giovana Sánchez UNIT #: [id number] ORDERING PROVIDER: Clinton Chang PRIMARY CARE PROVIDER: ROYER GOLDEN NP DATE/TIME OF SERVICE: 10/17/22 1006 : 1945 PERFORMING LOCATION: ER APPROVED REPORT Exam: Resting ECG Reason for Exam: chest pain Patient Location: E HR:68 bpm ECG Measurements Heart Rate 68 AXIS MI 150 P 50 QRSd 69 QRS -23 QT 371 T68 QTc 395 Conclusion Sinus rhythm...normal P axis, V-rate 60- 99 <Electronically signed by MD Thomas Espinosa in [place]> E-Sign Date: 10/17/22 E-Sign Time: 1011 ADDENDUM APPROVED REPORT Exam: Resting ECG Reason for Exam: chest pain Patient Location: E HR:68 bpm ECG Measurements Heart Rate 68 AXIS MI 150 P 50 QRSd 69 QRS -23 QT 371 T68 QTc 395 Conclusion Sinus rhythm...normal P axis, V-rate 60- 99 I have reviewed and I agree with the emergency room physician's ECG interpretation. Electronically signed by: <Electronically signed by Sydnie Streeter M.D. in [facility]> 10/17/22 1047 Cosigned by: Anesthesia Assessment and Plan Anesthesia History Personal History: No History of Anesthesia Complications Family History: No Family History of Anesthesia Complications Exercise Tolerance Exercise Tolerance: Metabolic Equivalents>4 Pertinent Negatives Pertinent Negatives: No Symptoms of GERD, No Major Cardiovascular Symptoms or Complaints, No Major Pulmonary Symptoms or Complaints and No History of CVA/TIA Cardiac & Pulmonary Exam Cardiac Exam: Normal S1/S2 Heart Sounds Pulmonary Exam: Clear Bilateral Breath Sounds Implantable Cardiac Device Does patient have a Pacemaker or an ICD?: No Airway Exam Known Difficult Airway: No Mallampati Class: 2 Mouth Opening: Normal (> 3cm) Thyromental Distance: Greater than 3 cm Neck Range of Motion: Limited ROM Neck Circumference: Normal Teeth Condition: Normal Dentition (Some missing lower, recent extractions. ) and Removable Dentures/Plates Upper ASA Classification ASA Score: ASA 3 Emergency Case?: No NPO Status NPO Status: NPO Clears >2 hours, Solids >8 hours Anesthesia Plan Resuscitation Status: Full Code Anesthesia Technique: Spinal Anesthesia Airway Planned: Natural Airway Pain Management: Surgeon and patient request nerve block Monitors Used: Standard Monitors
[2023-12-23] MEDS: Lactated Ringers 1,000 ML 80 ML IV ×2 (07:45→12:26)
[2023-12-23] MEDS: ceFAZolin 2 GM/50 ML BAG IVPB (09:21)
[2023-12-23] MEDS: TRANEXAMIC ACID/SOD. CHL. 1,000 MG/100 ML BAG 600 MG IVPB (09:30)
--- NOTE | 2023-12-23 09:33 | W.ANESNERVE ---
Nerve Block Single Injection Procedure Date and Time Date Performed: 12/23/23 Procedure Start: 08:52 Location Where Procedure Performed Procedure Location: Day Surgery Unit Reason Performed: Postoperative Analgesia Requesting Provider: Mateo Barnhart Timeout Performed Timeout Performed: Yes Monitoring Used ECG, Blood Pressure and SpO2 Sterility Sterility: Hand Hygiene, Surgical Cap, Surgical Mask, Sterile Gloves and Chlorhexidine Sedation Given During Procedure Sedation Given (Indicate Dose Given): No Sedation given Patient Mental Status Patient Mental Status: Awake Nerve Block 1st Nerve Block: Laterality: Left Block Type: Adductor Canal Ultrasound Image Saved?: Yes Needle / Catheter Used: 100mm SonoPlex II Local Anesthetic Bolus (Indicate Dose Given): Lidocaine used for local infiltration of skin, Injected in 3-5ml increments after negative blood aspiration and Bupivacaine 0.25% Dose:: 15 ml Additives (Indicate Dose Given): Normal Saline (hydrodissection) Ultrasound: Sterile probe cover and gel used Nerve Stimulator: Supplement to Ultrasound use and No twitch or parasthesia noted < 0.5 mA Paresthesia: None Procedure Tolerated: No Complications and Patient tolerated well Procedure Outcome: Successful Performed By: Brian Levine
--- NOTE | 2023-12-23 11:37 | W.ANESPOSTOP ---
Postoperative Evaluation Date, Time and Location Date Performed: 12/23/23 Time Performed: 11:38 Patient Location: PACU Vital Signs Most Recent Imported Vital Signs: Most Recent Vital Signs Temp Pulse Resp BP Pulse Ox 36.5 C 70 17 134/58 L 95 12/23/23 11:19 12/23/23 11:19 12/23/23 11:19 12/23/23 11:19 12/23/23 11:19 Pain Score Most Recent Pain Score: Most Recent Pain Score Pain Level 4 12/23/23 11:19 Assessment Mental Status: Awake (Alert & Oriented to Patient Baseline) Airway and Respiratory Function: Abnormal Respiratory exam (See explanation) (O2 2lpm will be taken care of as an inpatient ) and Patient has been admitted and is receiving care as an inpatient Cardiovascular Function: Hemodynamically Stable Hydration Status: Adequately Hydrated Nausea & Vomiting: No Nausea or Vomiting Pain: Pain is tolerable per patient Peripheral Nerve Block: Regional nerve block not resolved at time of post operative discharge
[2023-12-23] MEDS: oxyCODONE 5 MG TAB PO ×2 (12:25→17:32)
--- NOTE | 2023-12-23 13:33 | ROE_ITS ---
Date of service: 12/23/23 Time of Service: 09:20 Operative Note Operative Note DATE OF PROCEDURE: 12/23/23 PRE-OP DIAGNOSIS: Left Knee Osteoarthritis with Valgus Deformity POST-OP DIAGNOSIS: same PROCEDURE: Left Total Knee Replacement with Intraoperative Navigation SURGEON: Mateo Barnhart ANESTHESIA TYPE: Spinal Refer to Anesthesia Record PATHOLOGY: none sent TOURNIQUET TIME: 0 COMPLICATIONS: None Patient was transported to: PACU Patient's condition: stable Implants: 1. Depuy Attune Cementless Cruciate Retaining Femoral Component, Size 5 Narrow 2. Depuy Attune Cementless Fixed Bearing Tibial Component, Size 4 3. Depuy Attune 5x10 CR/FB Poly 4. Depuy Attune Patellar Component, Size 32 Indications: I have seen Giovana in clinic for symptoms of LEFT knee arthritis, confirmed with radiographic findings. Giovana has exhausted nonoperative methods and was having significant limitations in daily function and desired better function and less pain. I discussed the technical details of a knee replacement. I explained the risks of the procedure to include, but not limited to, bleeding, infection, pain, stiffness, fracture, damage to nerves and vessels, damage to muscles and tendons, loosening, need for repeat procedure, blood clot and cardiopulmonary demise. Despite these risks, she elected to proceed. Findings: There was significant signs of arthritis throughout the knee, worse in the lateral compartment. Procedure Description: Giovana was greeted in the preoperative holding area where the correct side was identified and marked. The consent was reviewed with the patient and signed. The history and physical was updated. All questions were answered. Preoperative mediacations were administered: Acetaminophen 1000mg, Celebrex 400mg, and Gabapentin 300mg. An adductor canal block was then administered by the anesthesia team in the PACU. Giovana was taken back to the operating room. A spinal anesthestic was then administered. The patient was placed into the supine position on the operating room table. A nonsterile tourniquet was placed high onto the leg. Posts were placed for positioning during the procedure. All bony prominences were well padded. Prophylactic antibiotics in the form of Cefazolin were administered. 1g of Tranxemic Acid was given intravenously within 30 minutes of incision. The left leg was then prepped with Chloraprep and draped in a s tandard fashion with impervious stockinette. A second prep with Chloraprep was performed prior to application of Iodine impregnated skin protection. A timeout to confirm correct identity, side and site, procedure, allergies, anesthesia, and medical concerns was performed. With the knee in some flexion, a midline incision was made overlying the knee. Full thickness skin flaps were raised once the extensor mechanism was encountered. These were raised medially and laterally. Any bleeding was controlled with electrocautery. Once the extensor mechanism was fully exposed, a medial parapatellar arthrotomy was performed in a flexed position. All bleeding from the arthrotomy and the geniculate arteries was coagulated. A medial subperiosteal peel was performed with electrocautery to the midcoronal plane. The fat pad was removed while keeping the patellar tendon protected. The anterior distal femur synovium was removed for later visualization. The ACL and PCL were resected and the anterior horn of the lateral meniscus was transected. The knee was then flexed with the patella everted. Large osteophytes from the tibia were removed. Large osteophytes from the femur were removed. A single starting pin was then placed 1cm anterior to the PCL insertion and the notch in the direction of the femoral head. The OrthoAlign device was applied over the pin. It was oriented to be in line with the epicondylar axis and the trochlear groove. It was then pinned into place. The navigation computer was then turned on and calibrated. The distal femur cut was set at 0 degrees varus /valgus and 3.5 degrees flexion. The distal femur cutting guide then was positioned for a 9mm cut. The distal femur was cut with an oscillating saw while protecting the soft tissues. The tibia was then addressed. The OrthoAlign device was placed over the tibial tubercle and medial tibia and secured into position. Once again, OrthoAlign was calibrated and then set for a 1 degree varus cut and 5 degrees of posterior slope. With this locked into position, the cut thickness stylus was used to assess cut thickness. The lateral side, most involved side, was set for a 6mm cut, corresponding to 9mm medially. This was then held in position and pinned into place with 2 additional pins and a cross pin for stability. The medial and lateral collateral ligaments were protected and the cut was performed. With this completed, it was assessed and noted to be of appropriate dimensions. The guide and OrthoAlign was removed. A spacer block was inserted and the knee was brought into extension to ensure enough space was present. . The Orthoalign gap balancing device was then placed in extension. This was used to ensure that the ligaments were properly balanced with up to 2 to 3 mm laxity laterally compared medially. The extension gap was measured as 22mm. The knee was then brought into 90 degrees of flexion and the ligament tax audit manager was once again placed. Under the same amount of force the flexion gap was measured. The Attune specific jig was placed and the flexion gap was made to match the extension gap. The femur was then sized as a size 5 narrow. The 4-in-1 cutting guide was the placed. An virgen wing was used to confirm appropriate position of the anterior cut to avoid notching. This cutting guide was ensured to be flush on the cut surface and then pinned into place with headed pins. While protecting the soft tissues, quad tendon, and collateral ligaments, the anterior and posterior cuts were performed with a saw. The central two pins were removed and the posterior and anterior chamfers were cut next. The notch-cutting guide was placed. This was pinned to lateralize the femoral component as much as possible while keeping it flush on the cut surface. This was then pinned into position. A saw was used to make the notch cut. A rasp smoothed the cut surfaces. The medial and lateral menisci were removed. A trial femoral component was then inserted, impacted down to the cut surfaces, and the lug holes were drilled. A provisional trial tibial component was placed and the knee was brought through range of motion. The polyethylene was trialed until there was good flexion and extension with excellent stability to the medial and lateral collaterals. The patella was tracking without thumbs. A size 10mm polyethylene component provided the best range of motion and stability with less than 2mm gapping with medial and lateral stress and full extension without significant hyperextension. The tibial cut surface was fully exposed. The tibia was then sized as a 4. The tibia had been previously marked during trialing to correspond to the center of the tibial component to help with rotation. The trial was aligned to this domingo, approximately rotated to the medial 1/3rd of the tibial tubercle. The trial was pinned into place. The tibia was prepared with a reamer and a keel punch and lug holes. The knee was then brought into extension and the patella was measured as 21mm. Using the patellar clamp and cut guide, this was resected to a flat surface with at least 13mm of thickness remaining. The size 32 patella fit the best. This was oriented and then clamped into position. The lugs were drilled. The trial components were removed. The final components were opened on the back table. The periosteal and capsular tissues, especially posteriorly, around the knee were then systematically injected with a periarticular cocktail consisting of 246mg of Ropivacaine, 0.5mg of Epinephrine, 0.08mg of Clonidine, and 30mg of Ketorolac, diluted to 100cc. On the back table, with the implants opened, the cement was mixed. One batch of high viscosity cement was prepared with vacuum assistance. After the cement was ready a small amount was placed on the cut surface of the patella and the patellar button was clamped into position and held. While the cement was hardening, the cementless knee components were placed. Starting with the tibial component, the tibia was subluxed anteriorly and the lug holes of the component were lined up. The tibia was then impacted with an impactor and mallet until the tibial component was in contact with the tibia. Then, the femoral component was inserted. The lug holes were aligned and the component was impacted into position. The final polyethylene component was inserted. The knee was irrigated with Surgiphor Betadine solution. This was allowed to sit in the knee for 3 minutes and then it was thoroughly irrigated out with saline. After the cement had finally cured, approximately 15min, the clamp was removed from the patella and the knee was taken through range of motion. The patella was tracking with a no-thumbs technique. The capsule was then reapproximated with a No. 1 Vicryl at multiple locations. The capsule was finally closed with a No. 2 Stratafix, barbed suture. Deep tissues were then reapproximated with 0 Vicryl and 2-0 Vicryl. The skin was closed with a running 3-0 Monocryl in a subcuticular fashion. This was reinforced with skin glue. A Mepilex silver dressing was applied along with a gtot-au-wpoiw WES wrap. A CryoCuff was applied. Giovana was transferred to the hospital bed without difficulty an suffering no apparent complication. Giovana has a good prognosis. Physical therapy will start today and without restrictions, weight-bearing as tolerated. Aspirin 81mg BID will be used for DVT prophylaxis.
--- NOTE | 2023-12-23 15:12 | PT.INIE ---
PT Notes Visit Reasons: L TKR Physical Therapy Inpatient Initial Evaluation Date: 12/23/2023 Referring Doctor: JV Martin PT Orders: PT CONSULT: S/p Ortho Surgery Precautions: Fall. Standard. WBAT on L LE with AD. Patient Profile/Admitting Diagnosis: Giovana is a 78-year-old female with primary unilateral osteoarthritis of the left knee and is status post left total knee arthroplasty on postoperative day 0. PMHX: Medical History Anxiety Eczema GERD (gastroesophageal reflux disease) History of angina Pt. states a long time ago she had it when she goes down the stairs and comes up fast Hx of intestinal obstruction Surgical History History of cataract surgery History of colectomy History of oophorectomy Social History/Home Situation: Lives with in a private home with 2 steps to enter. Independent with all mobility ADL performance without an assistive device. Still drives. Equipment Owned/DME: None Subjective: Nauseous upon sitting at edge of bed, vomited x 1. Dr. mcgowan and Nurse Megan aware. Reported 6-7/10 pain initially, decreased down to 5-6/10 after walking to the door. Does not like the cryocuff, hurts her when it gets filled up. Objective: General Observation: Resting in bed. WES wraps to L LE. JOSSELYN to R leg. present in room throughout. Mental Status: Alert and oriented as to person, place, time, and purpose. Able to pay attention, focus, and respond appropriately. Pain: As above Vital Signs: Closely monitored by nursing staff ROM: Right Lower Extremity: Hip flexion WFL. Hip abduction WFL. Knee flexion 30 degrees to 90 degrees ACTIVELY. Knee extension -30 degrees. Ankle dorsiflexion WFL. Ankle plantarflexion WFL. Left Lower Extremity: Hip flexion WFL. Hip abduction WFL. Knee flexion WFL. Ankle dorsiflexion WFL. Ankle plantarflexion WFL. Strength: Right Lower Extremity: Hip flexors 4-/5. Hip abductors 4-/5. Knee flexors 3-/5. Knee extensors 3-/5. Ankle dorsiflexors 4-/5. Ankle plantarflexors 4-/5. Left Lower Extremity: Hip flexors 5/5. Hip abductors 5/5. Knee flexors 5/5. Knee extensors 5/5. Ankle dorsiflexors 5/5. Ankle plantarflexors 5/5. Bed Mobility/Transfers: Moderate cueing provided for use of B hands as needed for support, movement sequence, AD management, and posture to reduce fall risk and minimize pain report Supine to sit with moderate assist Sit to stand with minimal assist with FWW Stand to sit with contact guard assist with FWW Bed to reclining chair with minimal assist with FWW Gait: Physical states safe and correct performance of in room ambulation covering a distance of 20 feet with step to gait pattern and wheelchair followed by requiring moderate verbal cueing for movement sequence, walker management, and posture to reduce fall risk and minimize pain report. Stairs: Not assessed Balance: Static Sitting: Normal Dynamic Sitting: Normal Static Standing: Fair Dynamic Standing: Fair Special Tests: Mobility Limitations Standardized Measure [facility] AM-PAC 6 clicks Basic Mobility Inpatient Short Form: Raw Score: 15 CMS Score: 58% deficit Informed Consent/Education: Patient was instructed in purpose of PT consult and plan of care. Agreeable to proceed with established PT POC to achieve personal goals. Trained patient with correct performance of exercises below to maximize motor control, joint flexibility, soft tissue extensibility of the L knee musculature: Access Code: [email or web address] URL: [email or web address] Date: 12/23/2023 Prepared by: Mary Peraza Exercises - Supine Quad Set - 1 x daily - 7 x weekly - 1 sets - 10 reps - 5 hold - Supine Heel Slide - 1 x daily - 7 x weekly - 1 sets - 10 reps - 5 hold - Supine Ankle Pumps - 1 x daily - 7 x weekly - 1 sets - 10 reps - 5 hold - Small Range Straight Leg Raise - 1 x daily - 7 x weekly - 1 sets - 10 reps - 5 hold NOT DONE TODAY - Seated November - 1 x daily - 7 x weekly - 1 sets - 10 reps - 5 hold NOT DONE TODAY Assessment: Patient nauseous and vomited x 1 when she sat up at edge of bed. Riggins better and was able to walk to the door before needing to rest. Requires use of a front wheel walker and the assistance of 1 person to maximize safety and reduce fall risk. Patient presents with clinical signs and symptoms consistent with current/admitting diagnoses that have resulted to mobility limitations, gait instability, generalized weakness, and overall ADL decline as demonstrated by the following impairment level findings: 1. Decreased strength to L knee major muscle groups 2. Impaired sitting/standing balance 3. Impaired activity tolerance 4. Limitation of joint range of motion in L knee Impairments are contributing to the following functional limitations: 1. Decline in bed mobility skills 2. Decline in transfer skills 3. Difficulty with ambulation without assistive device and physical assistance 4. Increased completion time for mobility ADL performance 5. Increased risk for falls 6. Difficulty with managing steps alone safely Patient is assessed as a 22637 moderate complexity based on the following: History: 78-year-old female with past medical history as indicated above Examination: Demonstrable impairment in strength, balance, and mobility level with underlying impairments and functional limitations as exhibited above as well as deficit score of 58% utilizing the [facility] Mobility Inpatient Short Form Presentation: Evolving Decision Makin moderate complexity Goals: Goals X1 week 1. Supine-Sit independent 2. Sit-Supine independent 3. Sit-Stand independent 4. Stand-Sit independent with FWW 5. Bed-Chair independent with FWW 6. Chair-Bed independent with FWW 7. Independent gait on level surface with use of FWW for at least 300 feet without report of pain nor dyspnea 8. Independent stair negotiation while holding onto B rails for at least 3 steps without report of pain nor dyspnea 9. Independent with home exercise program 10. Good static and dynamic standing balance/tolerance Plan of Care/Treatment Plan: 1-2x/day, 7 days/week x 1 week. Plan of care has been reviewed with the POTATO INSPECTOR providing the service under Physical Therapy direction. Initiate Physical Therapy intervention for pain management as needed, strengthening, bed mobility, transfers, gait, stairs, balance training, and use of assistive device. DISCHARGE RECOMMENDATIONS: [] Home with no services [] [X] Home with services. Patient will benefit from home health PT services in order to progress mobility level using FWW, assess home safety, identify additional equipment needs, and establish a functional maintenance program that will increase ability of patient to remain at home. [] Home with outpatient PT [] [] SNF for continued rehabilitation [] [] Soaking Room Operator Care [] [] SNF versus LTC based on ability to participate and progress [] TREATMENT CODE/TIME: 74669 x 20 minutes for 1 unit, 05278 x 15 minutes for 1 unit (15:12-15:47). Thank you for the opportunity to participate in the care of this patient. Mary Peraza PT, DPT, CLT [facility] [place], [place]
[2023-12-23] MEDS: Ondansetron 4 MG/2 ML VIAL IVP (16:55)
[2023-12-23] MEDS: Omeprazole 20 MG CAPCR PO (20:18)
[2023-12-23] MEDS: Celecoxib 200 MG CAP PO (20:19)
[2023-12-23] MEDS: Aspirin E.C. 81 MG TABEC PO (20:19)
[2023-12-24] VITALS (9 sets, daily range): BP systolic 102–118; BP diastolic 51–87; PULSE 74–83; RESP 16–18; TEMP 36–36.8; O2SAT 80–94
--- NOTE | 2023-12-24 | DI.CT_ITS ---
Exam(s) CT CHEST PE CTA EXAM: CT CHEST PE CTA CLINICAL HISTORY: Hypoxia s/p TKA with ?hilar mass. TECHNIQUE: Imaging Protocol: Axial CT angiography was performed with multi-slice acquisition and mu lti-planar and/or 3D reconstructions. CONTRAST MATERIAL: Intravenous: Omnipaque 350 contrast volume:60 mL COMPARISON: CR XR CHEST 2V PA LATERAL from 12/24/2023 FINDINGS: Tracheobronchial tree: Patent where visualized. Pulmonary parenchyma: Mild centrilobular emphysematous changes are present. There are infiltrates se en in the dependent portions of the lungs bilaterally which likely reflect atelectasis. Pneumonia ca nnot be entirely excluded. No pulmonary masses are seen. Pulmonary Arteries: No evidence of filling defect to suggest pulmonary emboli. Mediastinum and Cait: No dominant adenopathy or fluid collection. The esophagus is unremarkable. Visualized thyroid gland: Unremarkable. Pleura: No effusion or pneumothorax. Heart: The heart is not dilated. No coronary artery calcifications are seen. No pericardial effusion. Aorta: Thoracic aorta non-dilated. No evidence of dissection. Atherosclerotic calcification is presen t. Upper abdomen: Unremarkable. Soft tissues: Unremarkable. Bones: Within normal limits for the patient's age. IMPRESSION: 1. No evidence of pulmonary embolism, thoracic aortic dissection or aneurysm. 2. No evidence of a pulmonary mass or thoracic adenopathy. 3. Mild centrilobular emphysema. 4. Dependent small infiltrates in the lung bases likely reflecting atelectasis. Pneumonia cannot be excluded. RADIATION DOSE DELIVERED: Total DLP DATA REPOSITORY: All CT scans at this facility are submitted to the National Radiology Data Registry (NRDR) Dose Index Registry (DIR) with the [employer] (ACR). RADIATION OPTIMIZATION: All CT scans at this facility use at least one of these dose optimization te chniques: automated exposure control; mA and/or kV adjustment per patient size (includes targeted exa ms where dose is matched to clinical indication); or iterative reconstruction.
[2023-12-24] MEDS: Levothyroxine 75 MCG TAB PO (05:16)
[2023-12-24] MEDS: oxyCODONE 5 MG TAB PO ×3 (06:36→21:27)
[2023-12-24] MEDS: Magnesium Oxide 400 MG TAB PO (08:43)
[2023-12-24] MEDS: Dexamethasone 4 MG TAB PO (08:43)
[2023-12-24] MEDS: Vitamins B Comp w/C TAB 1 TAB PO (08:44)
[2023-12-24] MEDS: Aspirin E.C. 81 MG TABEC PO ×2 (08:44→21:26)
[2023-12-24] MEDS: Omeprazole 20 MG CAPCR PO ×2 (08:44→21:27)
[2023-12-24] MEDS: Acetaminophen 500 MG TAB 1000 MG PO ×3 (08:44→21:26)
[2023-12-24] MEDS: Celecoxib 200 MG CAP PO (08:44)
[2023-12-24] MEDS: Nystatin POWDER 60 GM JAR TP ×2 (08:45→22:02)
[2023-12-24] MEDS: Normal Saline Flush 10 ML SYR IV (08:45)
--- NOTE | 2023-12-24 11:15 | DSE_ITS ---
Date of service: 12/24/23 Time of Service: 09:15 DS: Diagnosis Discharge Diagnosis (1) Unilateral primary osteoarthritis, left knee: Status: Acute Discharge Plan Disposition Patient Disposition: Home Condition: Good Discharge Details Reason For Visit: L TKR Attending Provider: Mateo Barnhart Primary Care Provider: Leidy Valdez Home Meds and New Rx's Prescriptions: New celecoxib 200 mg capsule 200 mg PO BID Qty: 60 0RF aspirin 81 mg tablet,delayed release (DR/EC) 81 mg PO BID Qty: 60 0RF acetaminophen 500 mg tablet 1,000 mg PO TID Qty: 90 3RF dexamethasone 4 mg tablet 4 mg PO DAILY Qty: 2 0RF gabapentin 300 mg capsule 300 mg PO QHS Qty: 14 0RF oxycodone 5 mg tablet 5 mg PO Q4H MDD 6 tabs PRN (Reason: pain) Qty: 20 0RF Continued magnesium oxide 500 mg capsule 500 mg PO DAILY triamcinolone acetonide 0.1 % cream 1 applic topical BID PRN (Reason: rash) vitamin B complex [B Complex-Vitamin B12] Tablet 1 tab PO DAILY Qty: 90 3RF omeprazole 20 mg capsule,delayed release(DR/EC) 20 mg PO DAILY Qty: 90 2RF lorazepam 1 mg tablet 0.5 mg PO DAILY PRN (Reason: anxiety) Qty: 20 0RF levothyroxine 75 mcg tablet 75 mcg PO DAILY Qty: 90 3RF Centrum Silver Women 8 mg iron-400 mcg-300 mcg Tablet 1 tab PO DAILY ICaps AREDS2 250 mg-200 unit -12.5 mg-1 mg Capsule 1 cap PO DAILY Discharge Instructions Additional Instructions: Total Knee Discharge Instructions Activity: The most important activity is to walk and to work on gentle motion (both flexion and extension). You should try to take short walks a few times a day. It is important that when resting you work on keeping the knee straight. Avoid putting a pillow behind the knee as this will encourage flexion. Work on range of motion exercises as provided by Physical Therapy. - Start outpatient physical therapy within 2 weeks. - You should wear the GIOVANNI hose on both legs for 2 weeks. You may remove these at night. You may also use any compression sock in place of the GIOVANNI hose. - Utilize [employer] to review exercises, see videos on exercises and obtain basic information pertaining to your surgery and your recovery. Dressing: Remove the Adrián wrap by 2 days after your surgery and put on the GIOVANNI stocking given to you from the hospital. Keep the surgical dressing (underneath the ADRIÁN wrap) in place for at least one week. After the first week it may be removed and replaced with light gauze and tape or nothing. The wound and dressing may get wet after 3 days but avoid soaking the dressing or otherwise it will need to be changed. Many people prefer covering the dressing with cling wrap (saran wrap) to minimize it from getting soaked. If it gets wet, just pat dry. If it starts to peel off then it will need to be changed. Medications: - You should take Tylenol and anti-inflammatory Celebrex as your primary pain control medications. If the Celebrex is too expensive or not covered, please call the office for another alternative (Advil/Ibuprofen or Naproxen/Aleve) - You have been prescribed a stronger pain medication Oxycodone for breakthrough pain, take as needed as prescribed. - You will continue your omeprazole to help reduce stomach acid and reflux. - You have been prescribed Gabapentin to take at night for restlessness and nerve pain. - You will be taking Aspirin 81mg twice a day for DVT prevention unless instructed otherwise. - You have also been prescribed Decadron to take to control post-operative nausea and pain. You will start this tomorrow. - If you have constipation you should take Colace or Miralax (both [id number]). It takes most people 3-4 days to have a bowel movement. Follow-up: 2 weeks If you have any acute concerns or questions, please do not hesitate to contact the office at [phone]. You may contact Dr. Barnhart with any questions after hours through the hospital at [phone] or on his cell phone at [phone]. Referrals: Mateo Barnhart MD [ [facility] STAFF PHYSICIAN] - Equipment/Supplies: Walker Activity:: Activity as Tolerated Shower/Bathe:: 72 hours Diet:: As Tolerated Discharge Orders Discharge Orders: Discharge Order (Routine); Ordered 12/24/23 Ordered By: Mateo Barnhart DS: Summary Time Spent with Patient providing and/or coordinating discharge services: Less than 30 minutes Status at Discharge Functional status at discharge: uses cane/walker Overall status at discharge: patient is progressing back to baseline Mental Status: mental status grossly normal Speech and Movement: speech and movement normal Mood: congruent mood Affect: normal affect Quality:SDOH Health Related Social Needs: No Data to Display Exam Narrative Exam Narrative: Sitting up in the bed, eating breakfast. NAD. AAOx3. Extrem Other: LLE dressing c/d/i. Able to straight leg raise. +ADF/APF/EHL/FHL. SILT DP/SP/Tib. CR < 2 sec. Psych Mental Status: mental status grossly normal Speech and Movement: speech and movement normal Mood: congruent mood Affect: normal affect DS: Data Vitals/I&O Vitals and I&O: Vital Signs Temperature 36.3 C L 12/24/23 07:29 Temperature Source Tympanic 12/24/23 07:29 Pulse 77 12/24/23 07:29 Pulse Rhythm Regular 12/24/23 08:48 Respiratory Rate 16 12/24/23 07:29 Respiratory Effort Normal, Non-Labored 12/24/23 08:48 Respiratory Depth Normal 12/24/23 08:48 Respiratory Pattern Normal 12/24/23 08:48 Blood Pressure 113/51 L 12/24/23 07:29 Blood Pressure Mean 102 12/23/23 08:24 Blood Pressure Position Supine 12/23/23 08:24 Pulse Oximetry 92 12/24/23 08:57 Respiratory End-tidal CO2 32 12/23/23 11:19 Oxygen Delivery Method Nasal Cannula 12/24/23 08:57 Oxygen Flow Rate 2 12/24/23 08:57 Pain Level 6 12/24/23 10:22 Comment Decreased O2 from 3L NC, encourage DB/C 12/24/23 08:57 Intake & Output 12/23/23 12/23/23 12/24/23 11:59 23:59 11:59 Intake Total 1000 / 1092 92 / 1092 250 / 250 Output Total 100 / 375 275 / 375 Balance 900 / 717 -183 / 717 250 / 250 Weight 69.7 kg Intake: IV 1000 / 1092 92 / 1092 Oral 250 / 250 Output: Urine 275 / 275 Estimated Blood Loss 100 / 100 Other: Urine Color Dark Maryam Yellow Urine Appearance Clear Clear Urine Odor None Emesis Description None Voiding Methods Bedside Commode Bedside Commode [facility] All Active Problems Unilateral primary osteoarthritis, left knee (Acute) DEPO MEDROL: 05/22/23; 01/30/23; 09/25/2022 Localized osteoarthritis of right knee (Acute) Depo-medrol injection: 01/30/23 Benzodiazepine dependence (Chronic) Insomnia (Acute) Nocturnal leg cramps (Acute) Anxiety (Chronic) Hypothyroid (Chronic) Anemia (Chronic) Hearing loss (Acute) Diverticulitis (Chronic) Irritable bowel syndrome (Chronic) Arthropathy (Acute) Plantar fascial fibromatosis (Acute) Chronic kidney disease, stage 4 (severe) (Chronic) Rash (Acute) Medical History Eczema Hx of intestinal obstruction History of angina Pt. states a long time ago she had it when she goes down the stairs and comes up fast Anxiety GERD (gastroesophageal reflux disease) Surgical History History of oophorectomy History of colectomy History of cataract surgery Social History Smoking/Tobacco Use Status: Former Tobacco Use Quit Date: 09/14/07 Tobacco: How many years used: 15 Smoking risk assessment performed?: Yes Alcohol Intake: never Drug use: Never Substance use type: does not use Adopted: No Caregiver/Support person: No Foster care: No Household members: spouse Housing: house Number of Children: 5 number of grandchildren: 12 Communication Needs: Corrective Lenses Do you need help understanding health information?: Often current occupation: Retired Sexually active: Yes Do you think of yourself as: straight/heterosexual Current gender identity: female What type of physical activity do you participate in: walking Frequency: daily Thi/Pentecostalism: Spiritism Seatbelt use: always Working smoke detector in home: Yes Fire extinguisher in home: Yes Carbon monox detector in home: Yes Additional Social history: unable to assess privately Hospital Course Patient was admitted to the medical/surgical floor following the procedure. The surgery was tolerated well without any notable medical, surgical, or anesthetic complications. Mobilization began postoperatively. She did have some nausea and emesis but did improve with time. She was voiding spontaneously. Vitals were stable. Physical therapy worked with the patient and was cleared for discharge home. No acute medical issues. Pain was controlled on oral regimen. Time Spent with Patient Time Spent with Patient: <45 minutes Time was spent: preparing to see the patient(eg.review tests), indepentently interpreting results and counseling the patient
--- NOTE | 2023-12-24 11:53 | PDOC.CMDIS ---
Date of service: 12/24/23 Time of Service: 11:53 LACE Index Scoring Tool Questions: Length of Stay (in days): 1 Was the patient admitted via the E.D.?: No Comorbidities: Liver or Renal Disease (Stage 4) E.D. Visits: 0 Answers: Total Score: 6 Risk of Readmission: Low Risk Care Management Discharge Plan Reason for Hospitalization: TKR Discharge Plan: Giovana is discharged home via private vehicle with family. She will follow up with Ortho in 2 weeks then start outpatient PT, if recommended. Giovana will follow up with community providers and discharge plan of care as instructed. No new services are ordered prior to discharge. Patient/Family Education Needs: Review discharge instructions, limitations, medications and plan to follow up with community providers. Discuss ask me three. SDOH Health Related Social Needs: No Data to Display
--- NOTE | 2023-12-24 12:30 | RT.EKG_ITS ---
APPROVED REPORT Exam: Resting ECG Reason for Exam: hypoxia, GRAYSON Patient Location: O HR:75 bpm ECG Measurements Heart Rate 75 AXIS CA 154 P 34 QRSd 79 QRS -18 QT 403 T 29 QTc 451 Conclusion Sinus rhythm...normal P axis, V-rate 50- 99 Borderline left axis deviation...QRS axis (-15,-29) Low voltage, precordial leads...precordial leads <1.0mV
--- NOTE | 2023-12-24 12:42 | PGE_ITS ---
Date of Service Date of service: 12/24/23 Time of Service: 12:42 Assessment and Plan Assessment and plan (1) Unilateral primary osteoarthritis, left knee: Status: Acute Assessment and plan: Giovana is a 78-year-old female who is status post left knee replacement yesterday. She did well the overnight and this morning although she did have some emesis and nausea earlier yesterday. She had some decreased oxygenation overnight requiring oxygen at night. Per report she says that she snores, confirmed by her , and also seems to be tired during the day. This likely represents some undiagnosed sleep apnea which would explain the oxygenation at night. However, through the day today she has had a harder time maintaining oxygen saturations even with activity which is somewhat more concerning. We tried to wean her off the oxygen but she was unable to tolerate any lack of oxygen with saturations dropping down to the low 80s. She is now back on oxygen. We will stop the discharge process. I will order some screening labs, CBC and BMP. I will also get a chest x-ray and EKG. Additionally, I would recommend using the incentive spirometer is much as possible. Depending on the results here, we will consider hospitalist consultation if necessary for further intervention. My suspicion is that she just needs some time and supportive measures as she recovers from the surgery. Subjective Subjective Interval history since last seen: I returned to see Giovana due to some reported hypoxia with some dyspnea on exertion. I had seen her this morning where she looked significantly improved from yesterday. She had done well with physical therapy and was able to mobilize with nursing overnight with no complaints. She did feel somewhat tired this morning but nothing more than that. She denied any chest pain. Currently, she is sitting upright in the chair and just reports not feeling well. She does say that she had some lightheadedness or dizziness when she was up with nursing when it was noted her oxygen level had dropped about 80%. She has res ponded appropriately with oxygen, as low as 1 to 2 L. She has not started the incentive spirometer at this point. Exam Narrative Exam Narrative: Sitting up in the chair. Oxygen currently at 2 L. She describes not feeling but otherwise has normal appearance. She is alert and oriented x 3. No acute distress. Able to converse without overt shortness of breath. No audible wheezing or distress. Objective Last Vital Signs Temp 36.3 C L 04/11/24 07:29 Pulse 77 12/24/23 07:29 Resp 16 12/24/23 07:29 BP 113/51 L 12/24/23 07:29 Pulse Ox 90 L 12/24/23 12:39 Time Spent with Patient Time Spent with Patient: 25-34 minutes Time was spent: preparing to see the patient(eg.review tests), obtaining and/or reviewing separately otained hiistory, ordering medications,tests, procedures, referring, communicating with other health morning caregiver, indepentently interpreting results, counseling the patient and care coordination
[2023-12-24 12:47] LABS: HCT 32.9 % (36.0-46.0); HGB 10.7 g/dL (11.2-15.7); MCH 31.6 pg (27.0-33.0); MCHC 32.5 % (32.0-36.0); MCV 97 fL (80-95); Platelet Count 226 10^3/uL (130-400); RBC 3.39 10^6/uL (3.93-5.22); RDW 12.9 % (11.7-14.6); RDW-SD 45.6 fL; WBC 20.34 10^3/uL (4.4-10.8)
[2023-12-24 12:58] LABS: BUN 32 mg/dL (7-18); CREATININE 1.7 mg/dL (0.55-1.02); Calcium 8.5 mg/dL (8.5-10.1); Chloride 104 mmol/L (98-107); Estimated GFR 30.32 (mL/min/1.73m2); Glucose 132 mg/dL (74-106); Potassium 4.6 mmol/L (3.5-5.1); Sodium 139 mmol/L (136-145)
--- NOTE | 2023-12-24 13:04 | DI.RAD_ITS ---
Exam(s) XR CHEST 2V PA LATERAL EXAM: XR CHEST 2V PA LATERAL CLINICAL HISTORY: hypoxia, GRAYSON TECHNIQUE: 2D digital imaging was performed of the chest. Two images were obtained. PA and lateral views were obtained. COMPARISON: No exams were available for comparison FINDINGS: MEDIASTINUM: There is a question of a nodule in the right hilum which has a rounded appearance. Whil e this may represent the normal pulmonary vasculature, a central mass or adenopathy should also be co nsidered. HEART: Normal. PULMONARY VASCULATURE: Normal. LUNGS: No focal consolidating infiltrates. PLEURAL SPACE: No pleural effusion or pneumothorax. There is blunting of the posterior costophrenic a ngles likely reflecting scarring. BONE:Within normal limits for the patient's age. OTHER FINDINGS:Normal. IMPRESSION: 1. No acute pulmonary findings. 2. Question of a nodule in the right hilum. CT scan of the chest should be considered for further ev aluation. Unexpected findings DATA REPOSITORY: RADIATION DOSE DELIVERED:
[2023-12-24] MEDS: Normal Saline - Diluent 50 ML VIAL IJ (15:55)
[2023-12-24] MEDS: Omnipaque 350 MG/ML 500 ML BTL-Imaging package 60 ML IJ (15:56)
--- NOTE | 2023-12-24 16:01 | INITIAL_ITS ---
Date of service: 12/24/23 Time of Service: 10:00 Care Management Initial Assmt Initial Assessment REASON FOR HOSPITALIZATION:: Left TKR PREVIOUS FUNCTIONAL STATUS/SOCIAL/FAMILY SUPPORTS:: Giovana lives in [facility] with her Corazon. They has 5 daughters; their daughter Neris lives locally, Shilpi lives in [place] and the other 3 live in [place]. Giovana is independent with her ADL's at baseline. Her provides her transportations since she no longer drives. CURRENT FUNCTIONAL STATUS:: Giovana is sitting up in bed when CM met with her. Her is standing at her bedside. The couple are pleasant and engage in conversation, They speak Chinese, though [place] is their primary language. She is feeling good, her leg is achy. She is planning on discharging home when medically ready. ADVANCE DIRECTIVES:: On file, [facility] is Corazon Has patient been provided with info about the portal/API?: Yes Did the patient sign up for the portal?: Yes (Prior to admission) CODE STATUS:: Full Code INSURANCE COVERAGE / FINANCIAL ISSUES:: Medicare [employer] CURRENT HOME/COMMUNITY SERVICES/EQUIPMENT:: Uses a walker-PRN PRIMARY CARE PHYSICIAN:: Leidy Valdez POTENTIAL DISCHARGE NEEDS:: Discharge plan, follow up appts PATIENT/FAMILY EDUCATION NEEDS:: Review discharge instructions, limitations, medications and plan to follow up with community providers and start outpt ortho. Discuss ask me three. ANTICIPATED BARRIERS TO DISCHARGE:: None identified TRANSPORTATION:: private vehicle with PLAN:: Giovana will discharge home when medically cleared. She will follow her discharge plan of care which include follow up with ortho and other community providers. will transport. No services are anticipated at this time. PFSH All Active Problems Unilateral primary osteoarthritis, left knee (Acute) DEPO MEDROL: 05/22/23; 01/30/23; 09/25/2022 Localized osteoarthritis of right knee (Acute) Depo-medrol injection: 01/30/23 Benzodiazepine dependence (Chronic) Insomnia (Acute) Nocturnal leg cramps (Acute) Anxiety (Chronic) Hypothyroid (Chronic) Anemia (Chronic) Hearing loss (Acute) Diverticulitis (Chronic) Irritable bowel syndrome (Chronic) Arthropathy (Acute) Plantar fascial fibromatosis (Acute) Chronic kidney disease, stage 4 (severe) (Chronic) Rash (Acute) Medical History Eczema Hx of intestinal obstruction History of angina Pt. states a long time ago she had it when she goes down the stairs and comes up fast Anxiety GERD (gastroesophageal reflux disease) Surgical History History of oophorectomy History of colectomy History of cataract surgery Social History Smoking/Tobacco Use Status: Former Tobacco Use Quit Date: 09/14/07 Tobacco: How many years used: 15 Smoking risk assessment performed?: Yes Alcohol Intake: never Drug use: Never Substance use type: does not use Adopted: No Caregiver/Support person: No Foster care: No Household members: spouse Housing: house Number of Children: 5 number of grandchildren: 12 Communication Needs: Corrective Lenses Do you need help understanding health information?: Often current occupation: Retired Sexually active: Yes Do you think of yourself as: straight/heterosexual Current gender identity: female What type of physical activity do you participate in: walking Frequency: daily Thi/Presybeterian: Latter Day Seatbelt use: always Working smoke detector in home: Yes Fire extinguisher in home: Yes Carbon monox detector in home: Yes Additional Social history: unable to assess privately SDOH(Care Management) Screening Will the Patient Participate in the Screening?: Yes Do you worry about having a steady place to live?: no In the past 12 months, have you had to go without electric, gas, oil or water in your home?: no Have you or anyone in your house had to go without enough food to eat?: no Has lack of transportation kept you from medical appointments or from doing things needed for daily living?: no Has anyone in your support network made you feel unsafe for any reason?: no
--- NOTE | 2023-12-24 16:24 | CHAPLAIN ---
Giovana was in bed when I visited. She told me that she'd had knee surgery and had to stay an extra day because of oxygen but said she didn't know that that meant. Her has been and her daughter, who work at the [employer] has been in touch by phone and will be visiting. Giovana has a strong [place] accent, and that my be why she had trouble understanding oxygen.
--- NOTE | 2023-12-24 17:22 | W.MEDCONSULT ---
Date of service: 12/24/23 Time of Service: 17:22 Assessment and Plan Assessment and plan (1) Bilateral pulmonary infiltrates: Status: Acute Assessment and plan: Radiologist read this is dependent small infiltrates in the lung bases likely reflecting atelectasis pneumonia cannot be excluded. Her ultrasound of her lung was not consistent with atelectasis but more consistent with early pneumonia. I will start the patient on Rocephin and doxycycline, check a procalcitonin level, order sputum for culture and mycoplasma and Legionella and urine strep antigen studies. Encourage use of I-S and acapella. I will follow-up with a formal echocardiogram tomorrow to evaluate LV and RV function looking for any signs of diastolic or systolic LV failure or pulmonary hypertension. (2) Hypoxemia: Status: Acute Assessment and plan: As above, continue supplemental oxygen until hypoxemia has resolved. (3) Unilateral primary osteoarthritis, left knee: Status: Acute (4) Exertional dyspnea: Status: Acute (5) Leukocytosis, unspecified: Status: Acute Qualifiers: Leukocytosis type: unspecified Qualified Code(s): D72.829 - Elevated white blood cell count, unspecified History of Present Illness History of Present Illness Chief Complaint: post op hypoxemia Narrative: 78-year-old female with a history of CVA treated at [facility] in October 2022 close osteoarthritis of her left knee and underwent a left TKA yesterday by Dr. Barnhart. Other past medical history is remarkable for previous nephrectomy partial colectomy for bowel obstruction, cataract surgery and GERD. Patient denies any previous history of myocardial infarction or congestive heart failure or chronic lung disease such as asthma or COPD. She is a former smoker but quit smoking many years ago and smoked for about 15 years. She gives a history of having had exertional dyspnea and wheezing with exertion but denied any antecedent fevers chills or purulent sputum production prior to her operation. Medicine service was consulted today because of postoperative hypoxemia. Patient was expected to be discharged home today but when she was weaned off her nasal cannula this morning and ambulated her oxygen saturation dropped as low as 80%. On 2 L nasal cannula her oxygen saturation is 94%. She has had no fever or chills during this hospitalization does not feel short of breath at rest. She denies any chest pain or pressure. Review of Systems All systems reviewed & are unremarkable except as noted in HPI and below PFSH All Active Problems (Updated 04/11/24 @ 19:18 by Clinton Guerra MD) Leukocytosis, unspecified (Acute) Exertional dyspnea (Acute) Hypoxemia (Acute) Bilateral pulmonary infiltrates (Acute) Unilateral primary osteoarthritis, left knee (Acute) DEPO MEDROL: 05/22/23; 01/30/23; 09/25/2022 Localized osteoarthritis of right knee (Acute) Depo-medrol injection: 01/30/23 Benzodiazepine dependence (Chronic) Insomnia (Acute) Nocturnal leg cramps (Acute) Anxiety (Chronic) Hypothyroid (Chronic) Anemia (Chronic) Hearing loss (Acute) Diverticulitis (Chronic) Irritable bowel syndrome (Chronic) Arthropathy (Acute) Plantar fascial fibromatosis (Acute) Chronic kidney disease, stage 4 (severe) (Chronic) Rash (Acute) Medical History Eczema Hx of intestinal obstruction History of angina Pt. states a long time ago she had it when she goes down the stairs and comes up fast Anxiety GERD (gastroesophageal reflux disease) Surgical History History of oophorectomy History of colectomy History of cataract surgery Social History Smoking/Tobacco Use Status: Former Tobacco Use Quit Date: 09/14/07 Tobacco: How many years used: 15 Smoking risk assessment performed?: Yes Alcohol Intake: never Drug use: Never Substance use type: does not use Adopted: No Caregiver/Support person: No Foster care: No Household members: spouse Housing: house Number of Children: 5 number of grandchildren: 12 Communication Needs: Corrective Lenses Do you need help understanding health information?: Often current occupation: Retired Sexually active: Yes Do you think of yourself as: straight/heterosexual Current gender identity: female What type of physical activity do you participate in: walking Frequency: daily Thi/Mormon: Jehovah'S Witness Seatbelt use: always Working smoke detector in home: Yes Fire extinguisher in home: Yes Carbon monox detector in home: Yes Additional Social history: unable to assess privately Exam Narrative Exam Narrative: Elderly white female who is sitting up in bed talking with her family is not dyspneic with prolonged conversation she is wearing her supplemental oxygen. She does not appear to be exerting any unusual respiratory effort. There is no accessory respiratory muscle use. Neck no JVD normal carotid pulses no bruits no palpable thyromegaly although she does give a history of hypothyroidism. Lungs are clear anteriorly posteriorly she had some diminished breath sounds at the bases without rhonchi wheezes or rales Heart is regular rate and rhythm no appreciable murmur rub or gallop Abdomen is obese soft and nontender no bruits Extremities no pitting edema left knee is bandaged therefore cannot complete a full exam of the left leg but she denies any calf tenderness. Feet are warm and dry no cyanosis Results Last Vital Signs Temp 36.8 C 12/24/23 16:18 Pulse 77 12/24/23 16:18 Resp 16 12/24/23 16:18 BP 118/52 L 12/24/23 16:18 Pulse Ox 94 12/24/23 16:18 Labs 12/24/23 12:35 12/24/23 12:35 Labs: Laboratory Results - last 24 hr 12/24/23 12:35 WBC 20.34 H RBC 3.39 L Hgb 10.7 L Hct 32.9 L MCV 97 H MCH 31.6 MCHC 32.5 RDW 12.9 Plt Count 226 MPV 10.0 Sodium 139 Potassium 4.6 Chloride 104 Carbon Dioxide 25.0 Anion Gap 10.0 BUN 32 H Creatinine 1.7 H Est GFR (CKD-EPI 2020) 30.32 Glucose 132 H Calcium 8.5 Imaging Chest x-ray: report reviewed and image reviewed CT scan - chest: report reviewed and image reviewed Imaging Studies: [id number] ultrasound of her lungs was performed please see separate report for details. In summary she has an A/B pattern which is to say that she has normal A-line pattern in the anterior upper and lower lung zones but B-lines in the posterolateral bases and she also has some pleural irregularity but no air bronchograms no pleural effusions. I think this is more consistent with an early pneumonia than CHF.
--- NOTE | 2023-12-24 18:56 | W.POCUS ---
Pocus Exam Limited Thoracic Lung Exam DATE OF EXAM: 12/24/23 TIME OF EXAM: 17:52 PROVIDER THAT PERFORMED THE STUDY: Clinton Guerra IS THIS A REPEAT EXAM DURING THIS ENCOUNTER: No REASON FOR EXAM: Hypoxia VISUALIZED STRUCTURES: right anterior, left anterior, right lateral, left lateral, right posterior, left posterior, right subcostal and left subcostal PERTINENT FINDINGS/IMPRESSION: B-lines/left side thoracis location: lateral and posterior and B-lines/right side thoracis location: lateral and posterior; no pleural effusion on the left and no pleural effusion on the right INCIDENTAL FINDINGS: A/B lung pattern with A-line seen in the anterior upper and lower del castillo bilaterally where his B-lines were seen in the posterior lateral regions seen in the inferior mid axillary line as well as the posterior del castillo bilaterally. No pleural effusions. There are some pleural irregularity particularly in the posterior inferior lung del castillo. No air bronchograms findings were seen. Exam complete
[2023-12-24 19:36] LABS: Lab Add On Test DONE
[2023-12-24 20:06] LABS: Procalcitonin < 0.1 ng/mL
[2023-12-24] MEDS: cefTRIAXone 2 GM/50 ML BAG IVPB (22:02)
[2023-12-25] VITALS (9 sets, daily range): BP systolic 125–136; BP diastolic 51–59; PULSE 73–80; RESP 15; TEMP 35.9–36.3; O2SAT 77–97
[2023-12-25] MEDS: DOXYCYCLINE 100 MG in Normal Saline 100 ML IVPB ×2 (00:10→12:09)
[2023-12-25] MEDS: Levothyroxine 75 MCG TAB PO (06:06)
[2023-12-25 06:52] LABS: Abs Immature Grans 0.12 10^3/uL (0.0-0.06); Absolute Basophil Count 0.01 10^3/uL (0.0-0.2); Absolute Lymphocyte Count 1.08 10^3/uL (1.2-3.4); Absolute Monocyte Count 1.12 10^3/uL (0.1-0.8); Absolute Neutrophil Count 10.41 10^3/uL (1.2-6.7); Basophils % 0.1; HCT 30.9 % (36.0-46.0); Immature Grans % 0.9; Lymphocytes % 8.5; MCH 31.7 pg (27.0-33.0); MCHC 32.4 % (32.0-36.0); MCV 98 fL (80-95); MPV 10.7 fL (8.0-11.0); Monocytes % 8.8; Neutrophils % 81.7; Platelet Count 201 10^3/uL (130-400); RBC 3.15 10^6/uL (3.93-5.22); RDW 13.1 % (11.7-14.6); RDW-SD 46.7 fL; WBC 12.74 10^3/uL (4.4-10.8)
--- NOTE | 2023-12-25 07:00 | DI.US_ITS ---
APPROVED REPORT EXAM: Comprehensive 2D, Doppler, and color-flow Echocardiogram Patient Location: In-Patient Room/Bed: 217 Computational Theory Scientist: Kelly Corrales RDCS (AE) Indications: Dyspnea, Post op TKA Other Information Study Quality: Adequate. Technically limited study due to body habitus. Conclusion Normal left ventricular wall thickness and chamber size. EF is 60 % Wall motion is normal Normal right ventricular size and function Both atria are normal in size There is no structural or hemodynamically significant valvular disease Estimated right ventricular systolic pressure is 36 mmHg Wall motion Left Ventricle The left ventricle is normal size. The left ventricular systolic function is normal. The left ventric ular ejection fraction is within the normal range. There is normal left ventricular wall thickness. T here is normal LV segmental wall motion. Left ventricular filling pattern is normal for age. There is no ventricular septal defect visualized. LVEF is 60%. Right Ventricle The right ventricle is normal size. The right ventricular systolic function is normal. Atria The left atrium size is normal. The right atrium size is normal. The interatrial septum is intact wit h no evidence for an atrial septal defect. Aortic Valve The aortic valve is normal in structure. Aortic valve is trileaflet. There is no aortic valvular sten osis. No aortic regurgitation is present. Mitral Valve The mitral valve is normal in structure. No evidence of mitral valve stenosis. Trace mitral regurgita tion. Tricuspid Valve The tricuspid valve is normal in structure. There is no tricuspid valve stenosis. Trace tricuspid reg urgitation. The RVSP is 35.6 mmHg. Pulmonic Valve Pulmonic valve is not well visualized. There is no pulmonic valvular stenosis. There is no pulmonic v alvular regurgitation. Great Vessels The aortic root is normal in size. The ascending aorta is normal in size. Aortic arch is not well vis ualized. IVC is normal in size and collapses >50% with inspiration. Pericardium There is no pericardial effusion. 2D Dimensions IVSD d PLAX 0.83 cm F: 0.6-1.0 Ao Root d 2.59 cm F: 2.7 - 3.3 LVPW d PLAX 0.84 cm F: 0.6 - 1.0 Ao Asc Diam d 2.99 cm F: 2.3 - 3.1 LVID d PLAX 4.07 cm F: 3.8 - 5.2 LVDs 2.78 cm F: 2.2 - 3.5 LV EF Teichholz 60.1 % FS 31.64 % LV EDV (Teich) 73.1 mL LV ESV (Teich) 29.1 mL M-Mode TAPSE 2.30 cm (M/F) >1.7 Auto EF LV EDV A4C 71.6 mL LV EDV A2C 85.0 mL LV EDV BP 77.2 mL LV ESV A4C 31.1 mL LV ESV A2C 35.1 mL LV ESV BP 33.2 mL LVEF(%) A4C 56.5 % LVEF(%) A2C 58.7 % LVEF(%) BP 57.0 % LV SV A4C 40.5 ml LV SV A2C 49.9 ml LV SV BP 44.0 ml LV CO A4C 2.5 L/min LV CO A2C 3.3 L/min LV CO BP 2.9 L/min HR A4C 60.91 BPM HR A2C 66.42 BPM LV EDV Index (BP) LA Volume LA Length A4C 4.5 cm LA Length A2C 4.9 cm LA Area A4C s 13.41 cm2 LA Area A2C s 14.63 cm2 LA Vol A4C A-L 34.11 mL LA Vol A2C A-L 37.37 mL LA Vol Biplane A-L 37.2 mL LA Vol/BSA A4C A-L LA Vol/BSA A2C A-L LA Vol/BSA BP A-L 21.3 mL/m2 LA Vol A4C MOD 32.6 mL LA Vol A2C MOD 35.4 mL LA Vol BP MOD 35.2 mL RA Volume RA Area A4C 8.6 cm2 RA ESV A4C (A-L) 18.7mL RA Vol/BSA A4C A-L RA Length A4C 3.4 cm RA ESV A4C (MOD) 18.0mL LV Diastology MV E' medial 0.092 (>0.07 m/s) MV E Vmax 0.95 (0.4-1.3 m/s) MV E/E' MED 10.33 (<14) MV A Vmax 0.95 (0.4-1.3 m/s) MV E' lateral 0.102 (>0.1 m/s) E/A Ratio 1.0 MV E/E' LAT 9.25 (<14) MV E' Average 0.097 m/s MV E/E'(average) 9.76 Aortic Valve AoV Vmax 1.72 m/s LVOT Vmax 1.14 m/s AoV Peak Grad 11.8 mmHg LVOT Peak Grad 5.2 mmHg AoV Area (Vmax) 2.05 cm2 LVOT VTI 0.258 m AoV VTI 0.385 m LVOT Mean Grad 2.7 mmHg AoV Mean Rafi. 1.14 m/s LVOT SV 79.28 mL AoV Mean Grad 6.0 mmHg LVOT Diam s 1.95 cm AoV Area (VTI) 2.06 cm2 Velocity Ratio 0.66 Mitral Valve MV DT 235 (160-240 msec) Pulmonary Valve PV Vmax 0.93 (0.5-1.5 m/s) RVOT Vmax 0.89 m/s PV Peak Grad 3.5 mmHg RVOT Peak Gr. 3.2 mmHg PV Mean Rafi 0.67 m/s RVOT VTI 0.202 m PV Mean Grad 2.0 mmHg RVOT Mean Gr. 1.5 mmHg Tricuspid Valve RA Pressure 3.00 mmHg TR Vmax 2.85 m/s TV S' 0.19 m/s TR Peak Grad 32.6 mmHg RVSP (TR) 35.6 mmHg
[2023-12-25 07:09] LABS: Anion Gap 8.9 mmol/L (3-11); BUN 33 mg/dL (7-18); CO2 25.1 mmol/L (21.0-32.0); CREATININE 1.7 mg/dL (0.55-1.02); Calcium 8.4 mg/dL (8.5-10.1); Chloride 109 mmol/L (98-107); Estimated GFR 30.32 (mL/min/1.73m2); Glucose 94 mg/dL (74-106); Potassium 4.5 mmol/L (3.5-5.1); Sodium 143 mmol/L (136-145)
[2023-12-25] MEDS: Normal Saline Flush 10 ML SYR IV ×2 (08:51→20:40)
[2023-12-25] MEDS: Nystatin POWDER 60 GM JAR TP ×2 (08:51→20:30)
[2023-12-25] MEDS: Aspirin E.C. 81 MG TABEC PO ×2 (08:52→20:40)
[2023-12-25] MEDS: Vitamins B Comp w/C TAB 1 TAB PO (08:52)
[2023-12-25] MEDS: Magnesium Oxide 400 MG TAB PO (08:52)
[2023-12-25] MEDS: Acetaminophen 500 MG TAB 1000 MG PO ×3 (08:52→20:40)
[2023-12-25] MEDS: Omeprazole 20 MG CAPCR PO ×2 (08:52→20:40)
[2023-12-25] MEDS: oxyCODONE 5 MG TAB PO (09:09)
--- NOTE | 2023-12-25 11:28 | CMPROGNOTE_ITS ---
Date of service: 12/25/23 Time of Service: 11:28 Care Management Progress Note Progress Note Text Progress Note Text: S/O: Giovana was sitting up in bed when CM met with her. She stated that per MD, she would likely discharge home tomorrow. She is currently on supplemental O2, which she stated that she is not on at baseline, therefore her O2 will be weaned prior to discharge. She stated that her will be visiting later today, and will transport her home once she is ready. CM will continue to follow. A: Giovana is a 78 year old female admitted to [facility] on 12/24/23 for L TKR. P: Giovana will discharge home when medically cleared. She will follow her discharge plan of care which include follow up with ortho and other community providers. will transport. No services are anticipated at this time. SDOH(Care Management) Screening Will the Patient Participate in the Screening?: Yes Do you worry about having a steady place to live?: no In the past 12 months, have you had to go without electric, gas, oil or water in your home?: no Have you or anyone in your house had to go without enough food to eat?: no Has lack of transportation kept you from medical appointments or from doing things needed for daily living?: no Has anyone in your support network made you feel unsafe for any reason?: no
--- NOTE | 2023-12-25 11:52 | PGE_ITS ---
Date of Service Date of service: 12/25/23 Time of Service: 11:25 Assessment and Plan Assessment and plan (1) Hypoxemia: Status: Acute Assessment and plan: Continues require oxygen. Even on oxygen she desaturated to the 70s with ambulation. It is unclear the exact etiology of this. All testing thus far is been relatively benign except for the mild consideration of a burgeoning pneumonia. I appreciate the hospitalist involvement and default to them for management of her ongoing hypoxemia. Continue with working on improving oxygenation. Continue antibiotics per hospitalist team recommendations. Observe until oxygen levels improve and then likely discharge to home. (2) Unilateral primary osteoarthritis, left knee: Status: Acute Assessment and plan: Status post left knee replacement. Doing well. The level of swelling, pain, stiffness that she has is appropriate for where she is. Continue with medications as prescribed as well as Cryo/Cuff as needed. Continue ambulating with nursing support as well as physical therapy. (3) Leukocytosis, unspecified: Status: Acute Qualifiers: Leukocytosis type: unspecified Qualified Code(s): D72.829 - Elevated white blood cell count, unspecified Subjective Subjective Interval history since last seen: Giovana reports be doing okay. She said that she felt off this morning but feels better now. Unfortunately, when ambulating with nursing she had a s ustained pulse oximetry measured at 77% even on oxygen. She has had pain about the left knee but controlled with medications. Exam Narrative Exam Narrative: Sitting up in the bed. No acute distress. Wearing her nasal cannula. Breathing comfortably without any audible wheezing or distress. No increased work of breathing. Evaluation of the left knee shows a dressing which is clean dry and intact. Swelling seen around the knee. Some ecchymosis. Able to straight leg raise. Range of motion currently 10 to 80 degrees. Stable to varus and valgus stress. Objective Last Vital Signs Temp 35.9 C L 12/25/23 08:03 Pulse 78 12/25/23 08:03 Resp 15 12/25/23 08:03 BP 135/55 L 12/25/23 08:03 Pulse Ox 96 12/25/23 08:55 Laboratory Results - last 24 hr 12/24/23 12/25/23 12:35 06:05 WBC 20.34 H 12.74 H RBC 3.39 L 3.15 L Hgb 10.7 L 10.0 L Hct 32.9 L 30.9 L MCV 97 H 98 H MCH 31.6 31.7 MCHC 32.5 32.4 RDW 12.9 13.1 Plt Count 226 201 MPV 10.0 10.7 Immature Gran % 0.9 Neutrophils % 81.7 Lymphocytes % 8.5 Monocytes % 8.8 Eosinophils % 0.0 Basophils % 0.1 Nucleated RBC % 0.0 Absolute Neutrophils 10.41 H Absolute Lymphocytes 1.08 L Absolute Monocytes 1.12 H Absolute Eosinophils 0.00 Absolute Basophils 0.01 Sodium 139 143 Potassium 4.6 4.5 Chloride 104 109 H Carbon Dioxide 25.0 25.1 Anion Gap 10.0 8.9 BUN 32 H 33 H Creatinine 1.7 H 1.7 H Est GFR (CKD-EPI 2020) 30.32 30.32 Glucose 132 H 94 Calcium 8.5 8.4 L Procalcitonin < 0.1 Add-On Test Request DONE Time Spent with Patient Time Spent with Patient: 25-34 minutes Time was spent: preparing to see the patient(eg.review tests), obtaining and/or reviewing separately otained hiistory, referring, communicating with other health rn critical care, indepentently interpreting results, counseling the patient and care coordination
[2023-12-25] MEDS: cefTRIAXone 2 GM/50 ML BAG IVPB (20:40)
--- NOTE | 2023-12-25 22:10 | W.PM.PROGNOT ---
Date of Service Date of service: 12/25/23 Time of Service: 12:00 Assessment and Plan Assessment and plan (1) Bilateral pulmonary infiltrates: Status: Acute Assessment and plan: Patient is being treated for presumptive pneumonia however she has had no fever, no sputum production but her WBC which was 20,000 yesterday has come down to 12,000 since initiation of Rocephin and doxycycline. However her procalcitonin yesterday was normal (<0.1). I am awaiting her echo results to see if she has any LVH or increased filling pressures of her LV or evidence for pulmonary hypertension in order to make a diagnosis of either HFPEF or PHTN which could explain her post operative hypoxia. She is encouragged to use her IS and acapella and to ambulate out of bed within the limits imposed by her orthopedist. I will follow up on the echo results and repeat her labs tomorrow. If it turns out that she has signs of pulmonary hypertension or HFPEF or HFREF then I will add some diuresis but for now I will continue antibiotics until we have another plausible diagnosis. I may repeat her lung US tomorrow to see if any improvement in her B lines. (2) Hypoxemia: Status: Acute Assessment and plan: As above, continue supplemental oxygen until hypoxemia has resolved. (3) Unilateral primary osteoarthritis, left knee: Status: Acute (4) Exertional dyspnea: Status: Acute (5) Leukocytosis, unspecified: Status: Acute Qualifiers: Leukocytosis type: unspecified Qualified Code(s): D72.829 - Elevated white blood cell count, unspecified Subjective Subjective Interval history since last seen: Giovana denies any dyspnea at rest, however she gets dyspneic w/ activity. She reportedly dropped to 77% this morning while walking to the bathroom. She denies any CP. She denies any sputum production. Exam Narrative Exam Narrative: She is sitting up in bed, no acute distress. Neck: no JVD Lungs: clear anteriorly but w/ some faint rales at the bases; no rhonchi Heart: RRR, no murmur or rub Abdomen: soft nontender Legs: left knee somewhat edematous but it is wrapped in dressing which I did not take down to inspect her surgical site. foot is warm and dry w/ intact sensation. Objective Last Vital Signs Temp 36.1 C L 12/25/23 19:56 Pulse 78 04/12/24 19:56 Resp 15 12/25/23 19:56 BP 136/56 L 12/25/23 19:56 Pulse Ox 94 12/25/23 21:46 Laboratory Results - last 24 hr 12/25/23 06:05 WBC 12.74 H RBC 3.15 L Hgb 10.0 L Hct 30.9 L MCV 98 H MCH 31.7 MCHC 32.4 RDW 13.1 Plt Count 201 MPV 10.7 Immature Gran % 0.9 Neutrophils % 81.7 Lymphocytes % 8.5 Monocytes % 8.8 Eosinophils % 0.0 Basophils % 0.1 Nucleated RBC % 0.0 Absolute Neutrophils 10.41 H Absolute Lymphocytes 1.08 L Absolute Monocytes 1.12 H Absolute Eosinophils 0.00 Absolute Basophils 0.01 Sodium 143 Potassium 4.5 Chloride 109 H Carbon Dioxide 25.1 Anion Gap 8.9 BUN 33 H Creatinine 1.7 H Est GFR (CKD-EPI 2020) 30.32 Glucose 94 Calcium 8.4 L Reviewed Pertinent PMH: Yes Time Spent with Patient Time Spent with Patient: 25-34 minutes Time was spent: preparing to see the patient(eg.review tests), ordering medications,tests, procedures, referring, communicating with other health director of critical care, indepentently interpreting results, counseling the patient and care coordination
[2023-12-26] MEDS: DOXYCYCLINE 100 MG in Normal Saline 100 ML IVPB (00:10)
[2023-12-26] MEDS: Levothyroxine 75 MCG TAB PO (06:17)
[2023-12-26 06:49] LABS: Abs Immature Grans 0.08 10^3/uL (0.0-0.06); Absolute Basophil Count 0.04 10^3/uL (0.0-0.2); Absolute Eosinophil Count 0.21 10^3/uL (0.0-0.7); Absolute Lymphocyte Count 1.94 10^3/uL (1.2-3.4); Absolute Monocyte Count 0.93 10^3/uL (0.1-0.8); Absolute Neutrophil Count 7.66 10^3/uL (1.2-6.7); Basophils % 0.4; Eosinophils % 1.9; HCT 33.6 % (36.0-46.0); HGB 10.8 g/dL (11.2-15.7); Immature Grans % 0.7; Lymphocytes % 17.9; MCH 31.6 pg (27.0-33.0); MCHC 32.1 % (32.0-36.0); MCV 98 fL (80-95); MPV 10.7 fL (8.0-11.0); Monocytes % 8.6; Neutrophils % 70.5; Platelet Count 216 10^3/uL (130-400); RBC 3.42 10^6/uL (3.93-5.22); RDW 13.3 % (11.7-14.6); RDW-SD 48.3 fL; WBC 10.86 10^3/uL (4.4-10.8)
[2023-12-26 07:09] LABS: Anion Gap 9.3 mmol/L (3-11); BUN 26 mg/dL (7-18); CO2 25.7 mmol/L (21.0-32.0); CREATININE 1.6 mg/dL (0.55-1.02); Calcium 8.4 mg/dL (8.5-10.1); Chloride 111 mmol/L (98-107); Glucose 89 mg/dL (74-106); NT-proBNP 2363 pg/mL (<300); Potassium 4.3 mmol/L (3.5-5.1); Sodium 146 mmol/L (136-145)
[2023-12-26 07:22] VITALS: BP 140/106; PULSE 86; RESP 18; TEMP 36.9; O2SAT 93
[2023-12-26] MEDS: Acetaminophen 500 MG TAB 1000 MG PO (07:37)
[2023-12-26] MEDS: Aspirin E.C. 81 MG TABEC PO (07:37)
[2023-12-26] MEDS: Omeprazole 20 MG CAPCR PO (07:37)
[2023-12-26] MEDS: Vitamins B Comp w/C TAB 1 TAB PO (07:37)
[2023-12-26] MEDS: Magnesium Oxide 400 MG TAB PO (07:37)
[2023-12-26] MEDS: Normal Saline Flush 10 ML SYR IV (07:38)
[2023-12-26] MEDS: Nystatin POWDER 60 GM JAR TP (07:39)
[2023-12-26 07:44] LABS: Procalcitonin 0.1 ng/mL
[2023-12-26 07:50] VITALS: O2SAT 88
--- NOTE | 2023-12-26 08:11 | DSE_ITS ---
Date of service: 12/26/23 Time of Service: 08:12 DS: Diagnosis Discharge Diagnosis (1) Bilateral pulmonary infiltrates: Status: Acute (2) Hypoxemia: Status: Acute (3) Unilateral primary osteoarthritis, left knee: Status: Acute (4) Exertional dyspnea: Status: Acute (5) Leukocytosis, unspecified: Status: Acute Discharge Plan Disposition Patient Disposition: Home W/Home Health Services Condition: Good Discharge Details Reason For Visit: L TKR Admit Date/Time: 12/25/23 09:02 Admit Provider: Mateo Barnhart Attending Provider: Mateo Barnhart Primary Care Provider: Leidy Valdez Hospital Course Hospital Course: Patient was admitted to the medical/surgical floor following the procedure. The surgery was tolerated well without any notable medical, surgical, or anesthetic complications. However she had some difficulties with maintaining appropriate oxygen levels. This persisted and a full workup was performed. She was kept on continuous pulse oximetry which showed vacillating oxygenation usually was in the upper 80s to lower 90s. CT scan and x-ray showed some minimal amount of fluid versus atelectasis at the bases of the lungs but no overall consolidation, no overwhelming pneumonia, no mass lesions. She did have a leukocytosis on postop day #1 and this did resolve by postop day #3. She was started on antibiotics but had no cough, no fever, no chills and thus this was discontinued by postop day #3. Mobilization began postoperatively and she was able to mobilize independently with only standby assistance with pain, however controlled with medications. She was voiding spontaneously. Vitals were stable although oxygenation level still remained in the low 90s to upper 80s but without symptoms. Physical therapy worked with the patient and was cleared for discharge home. I will order home health services given the complicated recovery pattern and she needs to follow-up with her primary care team to evaluate potential ongoing pulmonary issues. Home Meds and New Rx's Prescriptions: New celecoxib 200 mg capsule 200 mg PO BID Qty: 60 0RF aspirin 81 mg tablet,delayed release (DR/EC) 81 mg PO BID Qty: 60 0RF acetaminophen 500 mg tablet 1,000 mg PO TID Qty: 90 3RF dexamethasone 4 mg tablet 4 mg PO DAILY Qty: 2 0RF gabapentin 300 mg capsule 300 mg PO QHS Qty: 14 0RF oxycodone 5 mg tablet 5 mg PO Q4H MDD 6 tabs PRN (Reason: pain) Qty: 20 0RF Continued magnesium oxide 500 mg capsule 500 mg PO DAILY triamcinolone acetonide 0.1 % cream 1 applic topical BID PRN (Reason: rash) vitamin B complex [B Complex-Vitamin B12] Tablet 1 tab PO DAILY Qty: 90 3RF omeprazole 20 mg capsule,delayed release(DR/EC) 20 mg PO DAILY Qty: 90 2RF lorazepam 1 mg tablet 0.5 mg PO DAILY PRN (Reason: anxiety) Qty: 20 0RF levothyroxine 75 mcg tablet 75 mcg PO DAILY Qty: 90 3RF Centrum Silver Women 8 mg iron-400 mcg-300 mcg Tablet 1 tab PO DAILY ICaps AREDS2 250 mg-200 unit -12.5 mg-1 mg Capsule 1 cap PO DAILY Discharge Instructions Additional Instructions: Total Knee Discharge Instructions Activity: The most important activity is to walk and to work on gentle motion (both flexion and extension). You should try to take short walks a few times a day. It is important that when resting you work on keeping the knee straight. Avoid putting a pillow behind the knee as this will encourage flexion. Work on range of motion exercises as provided by Physical Therapy. - Start outpatient physical therapy within 2 weeks. - You should wear the GIOVANNI hose on both legs for 2 weeks. You may remove these at night. You may also use any compression sock in place of the GIOVANNI hose. - Utilize [employer] to review exercises, see videos on exercises and obtain basic information pertaining to your surgery and your recovery. Dressing: Remove the Adrián wrap by 2 days after your surgery and put on the GIOVANNI stocking given to you from the hospital. Keep the surgical dressing (underneath the ADRIÁN wrap) in place for at least one week. After the first week it may be removed and replaced with light gauze and tape or nothing. The wound and dressing may get wet after 3 days but avoid soaking the dressing or otherwise it will need to be changed. Many people prefer covering the dressing with cling wrap (saran wrap) to minimize it from getting soaked. If it gets wet, just pat dry. If it starts to peel off then it will need to be changed. Medications: - You should take Tylenol and anti-inflammatory Celebrex as your primary pain control medications. If the Celebrex is too expensive or not covered, please call the office for another alternative (Advil/Ibuprofen or Naproxen/Aleve). You should take the Celebrex once per day, and then twice if needed for more intense pain. - You have been prescribed a stronger pain medication Oxycodone for breakthrough pain, take as needed and you may split this tablet as well. - You will continue your omeprazole to help reduce stomach acid and reflux. - You have been prescribed Gabapentin to take at night for restlessness and nerve pain. - You will be taking Aspirin 81mg twice a day for DVT prevention unless instructed otherwise. - You do NOT need to take your Dexamethasone. This was given during your hosp ital stay. - You should consider a probiotic or consumption of yogurt to help with your GI symptoms after antibiotics. Follow-up: 2 weeks If you have any acute concerns or questions, please do not hesitate to contact the office at [phone]. You may contact Dr. Barnhart with any questions after hours through the hospital at [phone] or on his cell phone at [phone]. 1. Encounter Date and Reason I certify that Giovana Desir [place] was seen by Mateo Barnhart MD on 12/26/23 and that I had a [id number] encounter with this patient that meets the physician face to face encounter requirements. 2. Clinical Findings Supporting Skilled Need and Homebound Status I certify that home health services are medically necessary, include either intermittent nursing home and/or physical/speech therapy, and that this patient is homebound in that absences from the home require considerable and taxing effort and are infrequent or of short duration, or are attributable to the need to receive medical care. [X] (a) Attached documentation from encounter provides clinical findings supporting skilled need and homebound status (including what assistance patient requires to leave the home). The encounter with the patient was in whole, or in part, for the following medical condition, which is the primary reason for home health care: L TKR Longterm: Giovana would benefit from nursing home given her diagnosed with postoperative hypoxemia and multiple new medications. Physical Therapy: Following a benefit from home health physical therapy given her weakness and gait abnormalities following her left knee replacement. She has no formal restrictions but should ambulate with assistive device. Speech Therapy: Homebound: 3. Certification and Authentication I certify that I composed the above information based on my clinical judgement relating to this patient's medical condition and, if applicable, clinical findings communicated to me by the NPP or inpatient physician who performed the Home Health Referral. All further orders will be obtained through Dr. Barnhart Stand Alone Forms: Nursing Discharge Form Referrals: Leidy Valdez [Primary Care Provider] - 01/12/24 10:00 am (This is the soonest possible apt. ) Mateo Barnhart MD [ [facility] STAFF PHYSICIAN] - 01/07/24 11:15 am Activity:: Activity as Tolerated Equipment/Supplies:: Walker Diet:: As Tolerated Discharge Orders Discharge Orders: Discharge Order (Routine); Ordered 12/26/23 Ordered By: Mateo Barnhart DS: Summary Time Spent with Patient providing and/or coordinating discharge services: Less than 30 minutes Status at Discharge Functional status at discharge: uses cane/walker Overall status at discharge: patient is progressing back to baseline Mental Status: mental status grossly normal Speech and Movement: speech and movement normal Mood: congruent mood Affect: normal affect Quality:SDOH Health Related Social Needs: No Data to Display Exam Narrative Exam Narrative: Sitting up in the hospital bed. No acute distress. Alert and orient x 3. Breathing comfortably without audible wheezing or distress. No extra work of breathing. Mobilize to the chair with standby assistance. Oxygenation level stays above 86 and responds to about 90% while sitting. No symptoms. Left lower extremity dressings clean dry and intact. Notable swelling and ecchymosis, appropriate for postoperative period. Intact ankle dorsiflexion plantarflexion as well as great toe extension and flexion. Sensation intact to light touch over the deep and superficial peroneal nerve and tibial nerve. Psych Mental Status: mental status grossly normal Speech and Movement: speech and movement normal Mood: congruent mood Affect: normal affect DS: Data Vitals/I&O Vitals and I&O: Vital Signs Temperature 36.9 C 12/26/23 07:22 Temperature Source Temporal Artery Scan 12/26/23 07:22 Pulse 86 12/26/23 07:22 Pulse Rhythm Regular 12/25/23 19:30 Respiratory Rate 18 12/26/23 07:22 Respiratory Effort Normal 12/25/23 19:30 Respiratory Depth Shallow 12/25/23 19:30 Respiratory Pattern Normal 12/25/23 19:30 Blood Pressure 140/106 H 12/26/23 07:22 Blood Pressure Mean 102 12/23/23 08:24 Blood Pressure Position Supine 12/23/23 08:24 Pulse Oximetry 93 12/26/23 07:22 Respiratory End-tidal CO2 32 12/23/23 11:19 Oxygen Delivery Method Nasal Cannula 12/26/23 07:22 Oxygen Flow Rate 3 12/26/23 07:22 Pain Level 4 12/26/23 07:37 Comment Pt resting in chair 12/25/23 08:49 Intake & Output 12/25/23 12/25/23 12/26/23 11:59 23:59 11:59 Intake Total 100 / 260 160 / 260 100 / 100 Output Total 200 / 200 150 / 150 Balance 100 / 60 -40 / 60 -50 / -50 Intake: IV 100 / 260 160 / 260 100 / 100 Output: Stool 200 / 200 150 / 150 Other: Urine Color Yellow Yellow Urine Appearance Clear Clear Urine Odor Normal Normal Comment voided independent in toilet No hat in room, unable to measure output. Mixed with liquid stool. Stool Size Moderate Small Stool Characteristics Liquid Liquid Brown Voiding Methods Toilet Toilet Data Completed and Pending Labs on day of discharge: Labs from last 24 hours 12/26/23 06:22 WBC 10.86 H RBC 3.42 L Hgb 10.8 L Hct 33.6 L MCV 98 H MCH 31.6 MCHC 32.1 RDW 13.3 Plt Count 216 MPV 10.7 Immature Gran % 0.7 Neutrophils % 70.5 Lymphocytes % 17.9 Monocytes % 8.6 Eosinophils % 1.9 Basophils % 0.4 Nucleated RBC % 0.0 Absolute Neutrophils 7.66 H Absolute Lymphocytes 1.94 Absolute Monocytes 0.93 H Absolute Eosinophils 0.21 Absolute Basophils 0.04 Sodium 146 H Potassium 4.3 Chloride 111 H Carbon Dioxide 25.7 Anion Gap 9.3 BUN 26 H Creatinine 1.6 H Est GFR (CKD-EPI 2020) 32.60 Glucose 89 Calcium 8.4 L NT-Pro-B Natriuret Pep 2363 H Procalcitonin 0.1 PFSH All Active Problems Leukocytosis, unspecified (Acute) Exertional dyspnea (Acute) Hypoxemia (Acute) Bilateral pulmonary infiltrates (Acute) Unilateral primary osteoarthritis, left knee (Acute) DEPO MEDROL: 05/22/23; 01/30/23; 09/25/2022 Localized osteoarthritis of right knee (Acute) Depo-medrol injection: 01/30/23 Benzodiazepine dependence (Chronic) Insomnia (Acute) Nocturnal leg cramps (Acute) Anxiety (Chronic) Hypothyroid (Chronic) Anemia (Chronic) Hearing loss (Acute) Diverticulitis (Chronic) Irritable bowel syndrome (Chronic) Arthropathy (Acute) Plantar fascial fibromatosis (Acute) Chronic kidney disease, stage 4 (severe) (Chronic) Rash (Acute) Medical History Eczema Hx of intestinal obstruction History of angina Pt. states a long time ago she had it when she goes down the stairs and comes up fast Anxiety GERD (gastroesophageal reflux disease) Surgical History History of oophorectomy History of colectomy History of cataract surgery Social History Smoking/Tobacco Use Status: Former Tobacco Use Quit Date: 09/14/07 Tobacco: How many years used: 15 Smoking risk assessment performed?: Yes Alcohol Intake: never Drug use: Never Substance use type: does not use Adopted: No Caregiver/Support person: No Foster care: No Household members: spouse Housing: house Number of Children: 5 number of grandchildren: 12 Communication Needs: Corrective Lenses Do you need help understanding health information?: Often current occupation: Retired Sexually active: Yes Do you think of yourself as: straight/heterosexual Current gender identity: female What type of physical activity do you participate in: walking Frequency: daily Thi/Sikh: Confucianist Seatbelt use: always Working smoke detector in home: Yes Fire extinguisher in home: Yes Carbon monox detector in home: Yes Additional Social history: unable to assess privately Time Spent with Patient Time Spent with Patient: <45 minutes Time was spent: preparing to see the patient(eg.review tests), referring, communicating with other health chronic care nurse, indepentently interpreting results and counseling the patient
[2023-12-26] MEDS: Lactobacillus Acidophilus CAP 1 CAP PO (09:28)
--- NOTE | 2023-12-26 13:05 | PDOC.CMDIS ---
Date of service: 12/26/23 Time of Service: 13:05 LACE Index Scoring Tool Questions: Length of Stay (in days): 2 Was the patient admitted via the E.D.?: No Comorbidities: Liver or Renal Disease E.D. Visits: 0 Answers: Total Score: 7 Risk of Readmission: Low Risk Care Management Discharge Plan Reason for Hospitalization: Left TKR Discharge Plan: Giovana returned home today with new orders for HH RN, PT. Her drove her home via private vehicle. She will follow up with her PCP, Ortho, and her discharge plan of care. She is happy to be going home. Patient/Family Education Needs: Review discharge instructions and limitations, discussion of self care needs including ask me three. Services Needed at Discharge: Home Health Care Services (HH RN, PT) SDOH Health Related Social Needs: No Data to Display
== END 2023-12-26 10:50 | disposition home health service (06) | DRG 469 ==
LOC: SUR 07:18 → MS 12-24 11:18
PROVIDERS: Internal Medicine; Admitting Provider Student in an Organized Health Care Education/Training Program; PCP Nurse Practitioner Family; Visit Provider Student in an Organized Health Care Education/Training Program
PROC: 0SRD0JA Replacement of Left Knee Joint with Synthetic Substitute, Uncemented, Open Approach (ICD-10-PCS; CPT 27447; principal; 2023-12-23 09:30)
DX: M17.12 Unilateral primary osteoarthritis, left knee (principal); J18.9 Pneumonia, unspecified organism; N18.4 Chronic kidney disease, stage 4 (severe); J98.11 Atelectasis; R09.02 Hypoxemia; D72.829 Elevated white blood cell count, unspecified; M21.062 Valgus deformity, not elsewhere classified, left knee; G47.00 Insomnia, unspecified; G47.62 Sleep related leg cramps; F41.9 Anxiety disorder, unspecified; E03.9 Hypothyroidism, unspecified; D64.9 Anemia, unspecified; K58.9 Irritable bowel syndrome, unspecified; L30.9 Dermatitis, unspecified; R11.2 Nausea with vomiting, unspecified; R06.00 Dyspnea, unspecified; Z86.73 Personal history of transient ischemic attack (TIA), and cerebral infarction without residual deficits
CPT/HCPCS: 27447; 20985; 00123; 36415; 71275; 76604; 76942; 80048; 84145; 85027; 93306; 97110; 97162; 97530; 71046; 83880; 85025; 93005; 93010; 94760; 99222; 99231; C1776; J0665; J0690; J0696; J1100; J2371; J2401; J2405; J2704; J3010; J8540

== ENCOUNTER 2024-01-07 11:15 | Outpatient (CLI) | payer MEDICARE, OTHER, SELFPAY ==
--- NOTE | 2024-01-07 10:45 | DI.RAD_ITS ---
Exam(s) XR KNEE LT 1V EXAM: XR KNEE LT 1V CLINICAL HISTORY: 1ST POST OP L TKA. TECHNIQUE: 2D digital imaging was performed. COMPARISON: CR XR STANDING ALIGNMENT from 01/07/2024 FINDINGS: Single lateral view: Appearance of the prosthesis components appears satisfactory on this lateral view with no evidence of fracture or loosening. No evidence of osteomyelitis. IMPRESSION: Satisfactory appearance DATA REPOSITORY: RADIATION DOSE DELIVERED:
--- NOTE | 2024-01-07 10:45 | DI.RAD_ITS ---
Exam(s) XR STANDING ALIGNMENT EXAM: XR STANDING ALIGNMENT CLINICAL HISTORY: 1ST POST OP L TKA. TECHNIQUE: 2D digital imaging was performed. COMPARISON: Prior study of 11/23/2023 FINDINGS: There has been interval placement of a left knee prosthesis which appears satisfactory. Minimal narr owing of the medial compartment of the opposite-right knee noted. No osteophytes. Bone density norm al. Both hips appear unremarkable. Ankles unremarkable. No significant osseous lesions. IMPRESSION: Satisfactory appearance of recently placed left knee prosthesis. Minimal if any significant narrowing of the medial lateral joint spaces in the opposite-right knee. No osteophytes seen. DATA REPOSITORY: RADIATION DOSE DELIVERED:
== END 2024-01-07 11:16 | disposition home or self-care (01) ==
LOC: DIORS 11:15
PROVIDERS: PCP Nurse Practitioner Family; Referring Provider Nurse Practitioner Family; Visit Provider Physician Assistant
DX: Z96.652 Presence of left artificial knee joint (principal); Z47.1 Aftercare following joint replacement surgery
CPT/HCPCS: 73560; 77073

== ENCOUNTER → 2024-02-04 10:47 | Outpatient (BNVA) | payer MEDICARE, OTHER, SELFPAY | PROVIDERS: PCP Nurse Practitioner Family; Visit Provider Student in an Organized Health Care Education/Training Program | DX: Z47.1 Aftercare following joint replacement surgery (principal); Z96.652 Presence of left artificial knee joint ==

== ENCOUNTER → 2024-02-18 14:38 | Outpatient (CLI) | payer MEDICARE, OTHER, SELFPAY ==
--- NOTE | 2024-02-18 | DI.US_ITS ---
Exam(s) US LOWER EXTREMITY VENOUS LT EXAM: US LOWER EXTREMITY VENOUS LT CLINICAL HISTORY: PAIN OF L CALF, M79.662 TECHNIQUE: Grayscale, color, and doppler imaging of the deep venous system of the left lower extremi ty was performed. COMPARISON: No exams were available for comparison FINDINGS: There is no evidence of intraluminal thrombus and there is normal compression and augmentation demons trated within the common femoral vein, femoral vein, and popliteal vein. In the ipsilateral calf the interrogated veins also exhibit normal compression/ augmentation properti es. The ipsilateral saphenofemoral junction is patent. IMPRESSION: 1. No evidence of DVT in the left lower extremity. DATA REPOSITORY:
--- NOTE | 2024-02-18 11:24 | DI.RAD_ITS ---
Exam(s) XR KNEE LT 3V AP,LAT,RITO EXAM: XR KNEE LT 3V AP,LAT,RITO CLINICAL HISTORY: PAIN OF KNEE REGION, M25.569. TECHNIQUE: 2D digital imaging was performed. COMPARISON: CR XR STANDING ALIGNMENT from 01/07/2024 CR XR KNEE LT 1V from 01/07/2024 FINDINGS: 3 views There is stable satisfactory appearance of the components of the left knee prosthesis. No fracture o r loosening evident. No radiographic evidence of osteomyelitis. No obvious effusion. IMPRESSION: Stable satisfactory appearance DATA REPOSITORY: RADIATION DOSE DELIVERED:
== END ==
PROVIDERS: PCP Nurse Practitioner Family; Visit Provider Physician Assistant Medical
DX: M79.662 Pain in left lower leg (principal)
CPT/HCPCS: 73562; 93971

== ENCOUNTER → 2024-03-10 08:46 | Outpatient (BNVA) | payer MEDICARE, OTHER, SELFPAY | PROVIDERS: PCP Nurse Practitioner Family; Referring Provider Nurse Practitioner Family; Visit Provider Student in an Organized Health Care Education/Training Program | DX: Z47.1 Aftercare following joint replacement surgery (principal); Z96.652 Presence of left artificial knee joint; M24.562 Contracture, left knee; T84.82XA Fibrosis due to internal orthopedic prosthetic devices, implants and grafts, initial encounter ==

== ENCOUNTER → 2024-03-21 10:47 | Outpatient (BNVA) | payer MEDICARE, OTHER, SELFPAY | PROVIDERS: PCP Nurse Practitioner Family; Referring Provider Nurse Practitioner Family; Visit Provider Student in an Organized Health Care Education/Training Program | DX: Z47.1 Aftercare following joint replacement surgery (principal); T84.82XA Fibrosis due to internal orthopedic prosthetic devices, implants and grafts, initial encounter; Z96.652 Presence of left artificial knee joint ==

== ENCOUNTER 2024-04-13 11:32 | Outpatient (REF) | payer MEDICARE, OTHER, SELFPAY ==
[2024-04-13 15:48] LABS: Abs Immature Grans 0.04 10^3/uL (0.0-0.06); Absolute Basophil Count 0.07 10^3/uL (0.0-0.2); Absolute Eosinophil Count 0.29 10^3/uL (0.0-0.7); Absolute Lymphocyte Count 1.74 10^3/uL (1.2-3.4); Absolute Monocyte Count 0.72 10^3/uL (0.1-0.8); Absolute Neutrophil Count 6.25 10^3/uL (1.2-6.7); Basophils % 0.8 %; Eosinophils % 3.2 %; HCT 37.4 % (36.0-46.0); HGB 11.9 g/dL (11.2-15.7); Immature Grans % 0.4 %; Lymphocytes % 19.1 %; MCHC 31.8 % (32.0-36.0); MCV 97 fL (80-95); Monocytes % 7.9 %; Neutrophils % 68.6 %; RBC 3.84 10^6/uL (3.93-5.22); RDW 12.4 % (11.7-14.6); RDW-SD 44.7 fL; WBC 9.11 10^3/uL (4.4-10.8)
[2024-04-13 16:26] LABS: ALT 20 U/L (14-59); AST 22 U/L (15-37); Albumin 3.8 g/dL (3.4-5.0); Alkaline Phosphatase 95 U/L (46-116); BUN 19 mg/dL (7-18); Bilirubin, Total 0.22 mg/dL (0.2-1.0); CREATININE 1.5 mg/dL (0.55-1.02); Calcium 9.2 mg/dL (8.5-10.1); Chloride 107 mmol/L (98-107); Cholesterol 180 mg/dL (<200); Estimated GFR 35.23 (mL/min/1.73m2); FREE T4 0.87 ng/dL (0.76-1.46); Glucose 94 mg/dL (74-106); HDL Cholesterol 34 mg/dL (40-60); Sodium 143 mmol/L (136-145); TSH 2.31 uIU/Ml (0.36-3.74); Triglyceride 438 mg/dL (<150)
[2024-04-13 16:39] LABS: Anion Gap 9.8 mmol/L (3-11); CO2 26.2 mmol/L (21.0-32.0); Total Protein 7.3 g/dL (6.4-8.2)
[2024-04-13 16:58] LABS: LDL CHOLESTEROL 81 mg/dL (<100)
== END 2024-04-13 11:33 | disposition home or self-care (01) ==
LOC: NCHCN 11:32
PROVIDERS: PCP Nurse Practitioner Family; Visit Provider Nurse Practitioner Family
DX: D64.9 Anemia, unspecified (principal); N18.4 Chronic kidney disease, stage 4 (severe); E03.9 Hypothyroidism, unspecified; E78.5 Hyperlipidemia, unspecified
CPT/HCPCS: 80053; 80061; 83721; 84439; 84443; 85025

== ENCOUNTER → 2024-05-02 10:43 | Outpatient (BNVA) | payer MEDICARE, OTHER, SELFPAY | PROVIDERS: PCP Nurse Practitioner Family; Visit Provider Student in an Organized Health Care Education/Training Program | DX: Z47.1 Aftercare following joint replacement surgery (principal); Z96.652 Presence of left artificial knee joint; T84.82XA Fibrosis due to internal orthopedic prosthetic devices, implants and grafts, initial encounter | CPT/HCPCS: 99213 ==

== ENCOUNTER 2024-05-10 16:39 | Outpatient (CLI) | payer MEDICARE, OTHER, SELFPAY ==
--- NOTE | 2024-05-10 15:21 | DI.RAD_ITS ---
Exam(s) XR CHEST 2V PA LATERAL EXAM: XR CHEST 2V PA LATERAL CLINICAL HISTORY: WHEEZING, ? PNEUMONIA. TECHNIQUE: 2D digital imaging was performed. COMPARISON: CT CT CHEST PE CTA from 12/24/2023 CR XR CHEST 2V PA LATERAL from 12/24/2023 FINDINGS: 2 views: Heart size is normal. The mediastinum is not widened. Lungs are clear. No infiltrates nor pleural effusions. IMPRESSION: No acute pulmonary findings. DATA REPOSITORY: RADIATION DOSE DELIVERED:
== END 2024-05-10 16:59 ==
PROVIDERS: PCP Nurse Practitioner Family; Visit Provider Nurse Practitioner Family
DX: R05.9 Cough, unspecified (principal)
CPT/HCPCS: 71046

== ENCOUNTER → 2024-07-04 10:53 | Outpatient (BNVA) | payer MEDICARE, OTHER, SELFPAY | PROVIDERS: PCP Nurse Practitioner Family; Referring Provider Nurse Practitioner Family; Visit Provider Student in an Organized Health Care Education/Training Program | DX: Z47.1 Aftercare following joint replacement surgery (principal); T84.82XD Fibrosis due to internal orthopedic prosthetic devices, implants and grafts, subsequent encounter; Z96.652 Presence of left artificial knee joint | CPT/HCPCS: 99213 ==

== ENCOUNTER 2024-10-14 13:43 | Outpatient (REF) | payer MEDICARE, OTHER, SELFPAY ==
[2024-10-14 15:11] LABS: Abs Immature Grans 0.02 10^3/uL (0.0-0.06); Absolute Basophil Count 0.06 10^3/uL (0.0-0.2); Absolute Eosinophil Count 0.27 10^3/uL (0.0-0.7); Absolute Lymphocyte Count 1.77 10^3/uL (1.2-3.4); Absolute Monocyte Count 0.56 10^3/uL (0.1-0.8); Absolute Neutrophil Count 5.45 10^3/uL (1.2-6.7); Basophils % 0.7 %; Eosinophils % 3.3 %; HCT 36.4 % (36.0-46.0); HGB 11.6 g/dL (11.2-15.7); Immature Grans % 0.2 %; Lymphocytes % 21.8 %; MCH 31.5 pg (27.0-33.0); MCHC 31.9 % (32.0-36.0); MCV 99 fL (80-95); MPV 10.8 fL (8.0-11.0); Monocytes % 6.9 %; Neutrophils % 67.1 %; Platelet Count 202 10^3/uL (130-400); RBC 3.68 10^6/uL (3.93-5.22); RDW 12.6 % (11.7-14.6); RDW-SD 45.4 fL; WBC 8.13 10^3/uL (4.4-10.8)
[2024-10-14 15:19] LABS: Bilirubin Negative (Negative); Blood Trace-intact (Negative); Clarity Cloudy (Clear); Glucose Negative (Negative); Ketones Negative (Negative); Leukocyte Esterase Moderate (Negative); Nitrite Negative (Negative); Urobilinogen 0.2 mg/dL (Up to 0.2)
[2024-10-14 15:26] LABS: Bacteria Rare HPF (Negative); C & S Indicated? Yes; Casts 0-2 Hyaline LPF (Negative); Crystals Negative HPF (Negative); Epithelial Cells Few HPF (Negative); Mucus Negative (Negative); Other Cells Rare Renal (Negative); RBC 0-2 HPF (0-2); WBC >50 HPF (0-5)
[2024-10-14 15:27] LABS: Hemoglobin A1C 6.1 % (<5.7)
[2024-10-14 15:42] LABS: ALT 17 U/L (14-59); AST 23 U/L (15-37); Albumin 3.5 g/dL (3.4-5.0); Alkaline Phosphatase 102 U/L (46-116); Anion Gap 6.1 mmol/L (3-11); BUN 21 mg/dL (7-18); Bilirubin, Total 0.36 mg/dL (0.2-1.0); CO2 28.9 mmol/L (21.0-32.0); CREATININE 1.6 mg/dL (0.55-1.02); Calcium 9.3 mg/dL (8.5-10.1); Calculated LDL 25 mg/dL (<100); Chloride 111 mmol/L (98-107); Cholesterol 119 mg/dL (<200); Glucose 94 mg/dL (74-106); HDL Cholesterol 40 mg/dL (40-60); Potassium 5.1 mmol/L (3.5-5.1); Sodium 146 mmol/L (136-145); TSH 2.54 uIU/mL (0.36-3.74); Total Protein 7.2 g/dL (6.4-8.2); Triglyceride 271 mg/dL (<150)
== END 2024-10-14 13:44 | disposition home or self-care (01) ==
LOC: NCHCN 13:43
PROVIDERS: PCP Nurse Practitioner Family; Visit Provider Nurse Practitioner Family
DX: N18.4 Chronic kidney disease, stage 4 (severe) (principal); E78.5 Hyperlipidemia, unspecified; R73.03 Prediabetes; R10.11 Right upper quadrant pain
CPT/HCPCS: 80053; 80061; 81003; 81015; 83036; 84439; 84443; 85025; 87086

== ENCOUNTER 2024-12-26 14:50 | Outpatient (CLI) | payer MEDICARE, OTHER, SELFPAY ==
--- NOTE | 2024-12-26 10:07 | DI.RAD_ITS ---
Exam(s) XR KNEE LT 2V AP,LAT EXAM: XR KNEE LT 2V AP,LAT INDICATION: ANNUAL F/U L TKA. COMPARISON: CR XR KNEE LT 3V AP,LAT,IRTO from 05/22/2023 CR XR STANDING ALIGNMENT from 01/07/2024 CR XR KNEE LT 1V from 01/07/2024 TECHNIQUE: 2D digital imaging was performed. Two views. FINDINGS: Stable alignment of the total knee prosthesis. No visible joint effusion. Venous varicosities are n oted in the medial soft tissues. DATA REPOSITORY: RADIATION DOSE DELIVERED:
== END 2024-12-26 14:51 | disposition home or self-care (01) ==
LOC: DIORS 14:50
PROVIDERS: PCP Nurse Practitioner Family; Referring Provider Nurse Practitioner Family; Visit Provider Student in an Organized Health Care Education/Training Program
DX: Z47.1 Aftercare following joint replacement surgery (principal); Z96.652 Presence of left artificial knee joint
CPT/HCPCS: 99213; 73560

== ENCOUNTER 2025-01-18 00:55 | Outpatient (CLI) | payer MEDICARE, OTHER, SELFPAY ==
--- NOTE | 2025-01-18 06:45 | DI.RAD_ITS ---
Exam(s) XR CHEST 2V PA LATERAL EXAM: XR CHEST 2V PA LATERAL CLINICAL HISTORY: cough, productive,r05.9 TECHNIQUE: 2D digital imaging was performed. Two views. COMPARISON: No exams were available for comparison FINDINGS: HEART: Normal size. Aorta: Not dilated. PULMONARY VASCULATURE: Normal. MEDIASTINUM: Unremarkable. LUNGS: Clear. PLEURAL SPACE: No pleural effusion or pneumothorax. BONE:Unremarkable for age. SOFT TISSUES: Unremarkable. IMPRESSION: No acute abnormality. DATA REPOSITORY: RADIATION DOSE DELIVERED:
== END 2025-01-18 01:15 ==
LOC: DI 00:56
PROVIDERS: PCP Nurse Practitioner Family; Visit Provider Physician Assistant
DX: R05.9 Cough, unspecified (principal)
CPT/HCPCS: 71046

== ENCOUNTER 2025-02-09 08:38 | Emergency (ER) | payer MEDICARE, OTHER, SELFPAY ==
[2025-02-09 08:39] VITALS: BP 142/57; PULSE 89; RESP 15; TEMP 36.1; O2SAT 92
[2025-02-09 08:43] VITALS: BP 142/57; PULSE 89; RESP 15; TEMP 36.1; O2SAT 92
--- NOTE | 2025-02-09 08:45 | DI.RAD_ITS ---
Exam(s) XR CHEST 2V PA LATERAL EXAM: XR CHEST 2V PA LATERAL CLINICAL HISTORY: cough and shortness of breath, 1 week. TECHNIQUE: 2D digital imaging was performed. COMPARISON: CR XR CHEST 2V PA LATERAL from 12/24/2023 CR XR CHEST 2V PA LATERAL from 01/18/2025 FINDINGS: 2 views: Heart size is normal. The mediastinum is not widened. Asymmetry of the right hilum is unchanged. Lungs are clear. No infiltrates nor pleural effusions. IMPRESSION: No acute pulmonary findings. DATA REPOSITORY: RADIATION DOSE DELIVERED:
[2025-02-09] MEDS: Albuterol HFA 8 GM 60 PUFF INH IH (09:06)
[2025-02-09] MEDS: Dexamethasone 10 MG/ML VIAL PO (09:06)
[2025-02-09 09:38] LABS: Bilirubin Negative (Negative); Blood Moderate (Negative); Clarity Cloudy (Clear); Glucose Negative (Negative); Ketones Trace mg/dL (Negative); Leukocyte Esterase Moderate (Negative); Nitrite Positive (Negative); Specific Gravity 1.025 (1.005-1.025); Urobilinogen 0.2 mg/dL (Up to 0.2); pH 5.5 (5-8)
[2025-02-09 09:56] LABS: WBC >50 HPF (0-5)
[2025-02-09 09:57] LABS: C & S Indicated? Yes
[2025-02-09] MEDS: Fosfomycin Tromethamine 3 GM PACKET PO (10:14)
--- NOTE | 2025-02-09 10:36 | W.ED.GENAD ---
Discharge Plan Disposition Patient Disposition: Home Condition: Stable Discharge Details Clinical Impression: Upper respiratory infection, Acute UTI Primary Care Provider: Juana Melchor ED Provider: Ladonna Root Home Meds and New Rx's Prescriptions: Continued magnesium oxide 500 mg capsule 500 mg PO DAILY melatonin 5 mg tablet 5 mg PO HS PRN vitamin B complex [B Complex-Vitamin B12] Tablet 1 tab PO DAILY Qty: 90 3RF omeprazole 20 mg capsule,delayed release(DR/EC) 20 mg PO DAILY Qty: 90 2RF lorazepam 1 mg tablet 0.5 mg PO DAILY PRN (Reason: anxiety) Qty: 20 0RF levothyroxine 75 mcg tablet 75 mcg PO DAILY Qty: 90 3RF Centrum Silver Women 8 mg iron-400 mcg-300 mcg Tablet 1 tab PO DAILY Discharge Instructions Instructions: Urinary Tract Infection, Adult ED, Upper Respiratory Infection ED Additional Instructions: You may have allergies or upper respiratory infection, try taking Claritin daily for the next 2 to 3 days to see if it helps your symptoms You may also use the albuterol inhaler 2 puffs every 4-6 hours with spacer as needed for cough wheeze shortness of breath You do have a urinary tract infection I am giving you a dose of fosfomycin, a single dose of this antibiotic should treat your urinary tract infection, please follow-up with your doctor in 1 week to have recheck of your urinalysis as you do have protein and we need to be sure this resolves with the resolution of your UTI Please return earlier should you have fever chills worsening shortness of breath, or should any new concerns arise Referrals: Juana Melchor NP [Primary Care Provider] - 1 week HPI General Date/Time Provider Initiated Documentation: 02/09/25 08:44. HPI Narrative: The patient is an 79-year-old female with hypothyroidism presenting with a 3-week history of persistent cough. She denies sick contacts, chest pain, and significant shortness of breath. Additionally, she reports dysuria and urinary frequency. Denies flank pain Sabrina fever chills nausea vomiting falls or injuries or known sick contacts Related Data Home Medications ?Medication ?Instructions ?Recorded ?Confirmed [id number] 8 mg-folic 400 1 tab PO DAILY 02/14/20 02/09/25 mcg-K 50 mcg-lutein 300 mcg tablet (Centrum Silver Women) vitamin B complex (B 1 tab PO DAILY #90 tabs 11/19/20 02/09/25 Complex-Vitamin B12 tablet) omeprazole 20 mg capsule,delayed 20 mg PO DAILY #90 caps 06/26/21 02/09/25 release levothyroxine 75 mcg tablet 75 mcg PO DAILY #90 tabs 09/03/21 02/09/25 lorazepam 1 mg tablet 0.5 mg (1/2 x 1 mg) PO DAILY PRN 09/03/21 02/09/25 anxiety #20 tabs magnesium oxide 500 mg capsule 500 mg PO DAILY 12/14/23 02/09/25 melatonin 5 mg tablet 5 mg PO HS PRN 02/04/24 02/09/25 Previous Rx's ?Medication ?Instructions ?Recorded vitamin B complex (B 1 tab PO DAILY #90 tabs 11/19/20 Complex-Vitamin B12 tablet) omeprazole 20 mg capsule,delayed 20 mg PO DAILY #90 caps 06/26/21 release levothyroxine 75 mcg tablet 75 mcg PO DAILY #90 tabs 09/03/21 lorazepam 1 mg tablet 0.5 mg (1/2 x 1 mg) PO DAILY PRN 09/03/21 anxiety #20 tabs Allergies Allergy/AdvReac Type Severity Reaction Status Date / Time sulfamethoxazole (From Allergy Unknown Skin Rash Verified 02/09/25 08:43 Bactrim) trimethoprim (From Bactrim) Allergy Unknown Skin Rash Verified 02/09/25 08:43 celecoxib (From Celebrex) AdvReac Intermediate Other (See Verified 02/09/25 08:43 Comment) General Stated Complaint: Urinary YO: 3 Exam Narrative Exam Narrative: General Appearance: Alert and oriented x4. Vital signs: Vital signs stable. HEENT: Oropharynx patent. Respiratory: No respiratory distress. Cardiovascular: Regular cardiac rate and rhythm, no murmurs or rubs. Gastrointestinal: No abdominal or CVA tenderness. Back, Musculoskeletal: Ambulatory with steady gait. Skin: Warm and dry, no rash. Neurological: Alert and oriented x4. Course Vital Signs Vital signs: Vital Signs Temperature 36.1 C L 02/09/25 08:39 Pulse 89 02/09/25 08:39 Respiratory Rate 15 02/09/25 08:39 Blood Pressure 142/57 H 02/09/25 08:39 Pulse Oximetry 92 02/09/25 08:39 Temperature 36.1 C L 02/09/25 08:43 Temperature Source Temporal Artery Scan 02/09/25 08:43 Pulse 89 02/09/25 08:43 Respiratory Rate 15 02/09/25 08:43 Blood Pressure 142/57 H 02/09/25 08:43 Blood Pressure Position Sitting 02/09/25 08:43 Pulse Oximetry 92 02/09/25 08:43 Oxygen Delivery Method Room Air 02/09/25 08:43 Oxygen Flow Rate 0 02/09/25 08:43 Pain Level 5 02/09/25 08:43 Lab/Test Results Lab/Test Results: 02/09/25 09:16 Urine - Reflex from Ua Urine Culture - Pending Laboratory Tests Range/Units 02/09/25 09:16 Urine Color (Yellow) Yellow Urine Clarity (Clear) Cloudy Urine pH (5-8) 5.5 Ur Specific [place] (1.005-1.025) 1.025 Urine Protein (Neg-Trace) mg/dL >=300 H Urine Ketones (Negative) mg/dL Trace H Urine Blood (Negative) Moderate H Urine Nitrite (Negative) Positive H Urine Bilirubin (Negative) Negative Urine Urobilinogen (Up to 0.2) mg/dL 0.2 Ur Leukocyte Esterase (Negative) Moderate H Urine RBC Not Applicable Urine WBC (0-5) HPF >50 H Ur Epithelial Cells Not Applicable Urine Crystals Not Applicable Urine Bacteria Not Applicable Urine Mucus Not Applicable Ur Culture Indicated? Yes Urine Glucose (Negative) mg/dL Negative Medical Decision Making Urinalysis: proteinuria, >50 WBCs, nitrates, leukocyte esterase. Chest x-ray: no acute abnormality. Initial Assessment: 79-year-old female with a history of hypothyroidism presents with a cough for the last 3 weeks and dysuria and frequency. Differential Diagnosis: - Urinary Tract Infection: Confirmed by urinalysis. Administer fosfomycin. Repeat urinalysis in 1 week with PCP. - Bronchospastic Cough: Persistent for 3 weeks, no sick contacts, no shortness of breath. Prescribed albuterol inhaler and single dose of Decadron. ED Course: - Chest x-ray shows no acute abnormality per radiology interpretation. - Urinalysis shows proteinuria and greater than 50 white blood cells with nitrates and leukocyte esterase, indicative of a urinary tract infection. - Administered single dose of fosfomycin. - Given albuterol inhaler for cough. - Administered single dose of Decadron. Final Assessment: Patient is stable for discharge home. Treated for upper respiratory symptoms and a urinary tract infection. Clinical Impression: - Urinary Tract Infection - Bronchospastic Cough Disposition: - Discharge - Follow-Up: Repeat urinalysis in 1 week with PCP. MDM Components Evaluation: - Number of Differential Diagnoses or Management Options: Urinary Tract Infection, Bronchospastic Cough - Amount and Complexity of Data Reviewed: Chest x-ray, urinalysis - Risk of Complication and Morbidity or Mortality: Low risk based on stable vitals and no acute distress. Quality:SDOH Health Related Social Needs: No Data to Display PFSH All Active Problems (Updated 02/09/25 @ 10:06 by JV Ashford) Acute UTI (Acute) Upper respiratory infection (Acute) Exertional dyspnea (Acute) Hypoxemia (Acute) Localized osteoarthritis of right knee (Acute) Depo-medrol injection: 01/30/23 Benzodiazepine dependence (Chronic) Insomnia (Acute) Nocturnal leg cramps (Acute) Anxiety (Chronic) Hypothyroid (Chronic) Anemia (Chronic) Hearing loss (Acute) Diverticulitis (Chronic) Irritable bowel syndrome (Chronic) Arthropathy (Acute) Plantar fascial fibromatosis (Acute) Chronic kidney disease, stage 4 (severe) (Chronic) Rash (Acute) Medical History (Updated 02/09/25 @ 10:06 by JV Ashford) Eczema Hx of intestinal obstruction History of angina Pt. 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) History of oophorectomy History of colectomy History of cataract surgery Social History Smoking/Tobacco Use Status: Former Tobacco Use Quit Date: 09/14/07 Tobacco: How many years used: 15 Smoking risk assessment performed?: Yes Alcohol Intake: never Drug use: Never Substance use type: does not use Adopted: No Caregiver/Support person: No Foster care: No Household members: spouse Housing: house Number of Children: 5 number of grandchildren: 12 Communication Needs: Corrective Lenses Do you need help understanding health information?: Often current occupation: Retired Sexually active: Yes Do you think of yourself as: straight/heterosexual Current gender identity: female What type of physical activity do you participate in: walking Frequency: daily Thi/Episcopal: [employer] Seatbelt use: always Working smoke detector in home: Yes Fire extinguisher in home: Yes Carbon monox detector in home: Yes Additional Social history: unable to assess privately
== END 2025-02-09 10:22 | disposition home or self-care (01) ==
PROVIDERS: Emergency Provider Physician Assistant; PCP Nurse Practitioner Family
DX: J06.9 Acute upper respiratory infection, unspecified (principal); N39.0 Urinary tract infection, site not specified; E03.9 Hypothyroidism, unspecified; N18.4 Chronic kidney disease, stage 4 (severe); Z87.891 Personal history of nicotine dependence
CPT/HCPCS: 87077; 99284; 71046; 81003; 81015; 87086; 87186; J1100; J3490

== ENCOUNTER 2025-02-10 08:42 | Observation (INO) | payer MEDICARE, OTHER, SELFPAY ==
[2025-02-10] VITALS (73 sets, daily range): BP systolic 114–153; BP diastolic 36–82; PULSE 65–103; RESP 12–30; TEMP 36.1; O2SAT 89–96
--- NOTE | 2025-02-10 08:30 | RT.EKG_ITS ---
APPROVED REPORT Exam: Resting ECG Reason for Exam: chest pain Patient Location: E HR:100 bpm ECG Measurements Heart Rate 100 AXIS AL 139 P 49 QRSd 76 QRS -40 QT 348 T 57 QTc 449 Conclusion Sinus tachycardia...rate> 99 Left anterior fascicular block...axis(240,-40), init forces inf
--- NOTE | 2025-02-10 08:57 | W.ED.GENAD ---
Discharge Plan Disposition Patient Disposition: Admit to [facility] Discharge Details Chief Complaint: Chest Pain Clinical Impression: Exertional dyspnea, Hypoxemia, Chest pain, Headache Primary Care Provider: Juana Melchor ED Provider: Petra Samuels Home Meds and New Rx's Prescriptions: No Action magnesium oxide 500 mg capsule 500 mg PO DAILY melatonin 5 mg tablet 5 mg PO HS PRN vitamin B complex [B Complex-Vitamin B12] Tablet 1 tab PO DAILY Qty: 90 3RF omeprazole 20 mg capsule,delayed release(DR/EC) 20 mg PO DAILY Qty: 90 2RF lorazepam 1 mg tablet 0.5 mg PO DAILY PRN (Reason: anxiety) Qty: 20 0RF levothyroxine 75 mcg tablet 75 mcg PO DAILY Qty: 90 3RF Centrum Silver Women 8 mg iron-400 mcg-300 mcg Tablet 1 tab PO DAILY HPI General Date/Time Provider Initiated Documentation: 02/10/25 08:44. HPI Narrative: Giovana is an 79-year-old female who presents to the emergency department today for evaluation of sudden onset sternal chest pain accompanied by posterior neck pain and headache starting at 2 AM. Seen yesterday for cough, diagnosed with UTI and viral illness. Chest pain onset at 0230 hours, initially 10/10, now 3/10. This is accompanied by concurrent frontal headache and posterior neck pain. Denies fever/chills, vision changes, dizziness, diaphoresis, nausea, abdominal pain, arm numbness/weakness, change in bowel or bladder function, black/tarry stools, or pedal edema. Past medical history significant for intracranial hemorrhage in 2022 as well as hypothyroidism. Denies history of [place], HTN, diabetes, lung disease. Former smoker. Related Data Home Medications ?Medication ?Instructions ?Recorded ?Confirmed [id number] 8 mg-folic 400 1 tab PO DAILY 02/14/20 02/10/25 mcg-K 50 mcg-lutein 300 mcg tablet (Centrum Silver Women) vitamin B complex (B 1 tab PO DAILY #90 tabs 11/19/20 02/10/25 Complex-Vitamin B12 tablet) omeprazole 20 mg capsule,delayed 20 mg PO DAILY #90 caps 06/26/21 02/10/25 release levothyroxine 75 mcg tablet 75 mcg PO DAILY #90 tabs 09/03/21 02/10/25 lorazepam 1 mg tablet 0.5 mg (1/2 x 1 mg) PO DAILY PRN 09/03/21 02/10/25 anxiety #20 tabs magnesium oxide 500 mg capsule 500 mg PO DAILY 12/14/23 02/10/25 melatonin 5 mg tablet 5 mg PO HS PRN 02/04/24 02/10/25 Previous Rx's ?Medication ?Instructions ?Recorded vitamin B complex (B 1 tab PO DAILY #90 tabs 11/19/20 Complex-Vitamin B12 tablet) omeprazole 20 mg capsule,delayed 20 mg PO DAILY #90 caps 06/26/21 release levothyroxine 75 mcg tablet 75 mcg PO DAILY #90 tabs 09/03/21 lorazepam 1 mg tablet 0.5 mg (1/2 x 1 mg) PO DAILY PRN 09/03/21 anxiety #20 tabs Allergies Allergy/AdvReac Type Severity Reaction Status Date / Time sulfamethoxazole (From Allergy Unknown Skin Rash Verified 02/10/25 08:50 Bactrim) trimethoprim (From Bactrim) Allergy Unknown Skin Rash Verified 02/10/25 08:50 celecoxib (From Celebrex) AdvReac Intermediate Other (See Verified 02/10/25 08:50 Comment) General Stated Complaint: Chest Pain YO: 3 Exam Narrative Exam Narrative: General Appearance: Normal. Giovana is alert and oriented, in no acute distress. Vital signs: Within normal limits. Respiratory: Easy work of breathing, lung sounds clear bilaterally. Cardiovascular: No obvious JVD or pedal edema. Normal heart sounds, regular rate and rhythm. GI: Abdomen is soft, nondistended, nontender to palpation. Extremities: Moving all extremities equally Skin: Warm and dry, no rash. Psychiatric: Normal. Course Vital Signs Vital signs: Vital Signs Pulse 101 H 02/10/25 08:48 Respiratory Rate 18 02/10/25 08:48 Blood Pressure 136/57 L 02/10/25 08:48 Pulse Oximetry 95 02/10/25 08:48 Pulse 101 H 02/10/25 08:48 Respiratory Rate 18 02/10/25 08:52 Respiratory Effort Normal, Non-Labored 02/10/25 08:52 Respiratory Depth Normal 02/10/25 08:52 Blood Pressure 136/57 L 02/10/25 08:48 Blood Pressure Position Supine 02/10/25 08:48 Pulse Oximetry 95 02/10/25 08:48 Oxygen Delivery Method Room Air 02/10/25 08:48 Oxygen Flow Rate 0 02/10/25 08:48 Medical Decision Making Initial Assessment: Giovana is an 79-year-old female presenting with chest pain and headache. She was seen yesterday for a cough and diagnosed with a UTI and viral illness. I did review patient's previous records, including ED visit from 10/17/2022 in which patient was diagnosed with intracranial hemorrhage with similar symptoms. I also reviewed ED visit from yesterday, patient was administered a single dose of dexamethasone for treatment of bronchospastic cough Differential Diagnosis includes but is not limited to: Viral illness, ACS, carotid artery dissection, intracranial hemorrhage, migraine/other headache, pneumonia, PE. Heart score 4, indicating moderate risk of Mace. I independently interpreted the following tests: EKG shows sinus tachycardia, rate 100, no changes consistent with acute ischemia. Normal intervals. CBC notable for leukocytosis, white cell count 20.13. Slightly elevated creatinine and BUN from previous, (1.8:27 today vs 1.6:21 on 10/14/24). Troponins flat at 89, followed by 9 and 11. Lipase, TSH, magnesium all unremarkable. ED Course: - Administered aspirin; nitroglycerin held as patient reported chest pain improved without intervention. - Blood work - Chest x-ray - CTA head and neck I independently interpreted the following tests: EKG shows sinus tachycardia, rate 100, no changes consistent with acute ischemia. Normal intervals. CBC notable for leukocytosis, white cell count 20.13, however this is probably administration of dexamethasone during yesterday's emergency department visit. Mildly elevated creatinine and BUN from previous, today 1.8/27 versus 1.6/25 on 09/16/2024. D-dimer elevated. Lipase, TSH, magnesium all unremarkable. CTA head and neck performed to rule out intracranial pathology, no acute abnormalities were noted. As patient does have decreased kidney function at baseline, gentle IV hydration provided with normal saline. Overall cardiac workup today reassuring. Discussed case with Dr. Goetz, [facility] hospitalist. Unclear etiology of tachycardia and hypoxia, possibly viral illness, though chronic lung disease exacerbation, nonradiographically evidence of pneumonia, or PE can be considered. As patient does have history of unprovoked intracranial hemorrhage, empiric treatment for PE not indicated, however risks of the administration of IV contrast likely outweigh benefit. Will admit for further observation/mgmt. Giovana and her are agreeable with plan of care. Clinical Impression: - Chest pain - Headache with neck pain, resolved with tylenol - Hypoxia Disposition: Admission for further evaluation/management MDM Components Evaluation: - Number of Differential Diagnoses or Management Options: Chest pain, headache, UTI - Amount and Complexity of Data Reviewed: Patient history, physical exam - Risk of Complication and Morbidity or Mortality: Moderate due to chest pain and age Patient consented to the use of [facility] Imaging Data Radiologic Study: Radiologist's impression: Exam(s) XR CHEST 2V PA LATERAL EXAM: XR CHEST 2V PA LATERAL CLINICAL HISTORY: sternal CP. TECHNIQUE: 2D digital imaging was performed. COMPARISON: CR XR CHEST 2V PA LATERAL from 02/09/2025 FINDINGS: 2 views: Heart size is normal. The mediastinum is not widened. Lungs are clear. No infiltrates nor pleural effusions. Radiologic Study #2: Radiologist's impression: Exam(s) CT BRAIN NECK CTA EXAM: CT BRAIN NECK CTA CLINICAL HISTORY: BIRD, neck pain, CP, h/o ICH. TECHNIQUE: Imaging Protocol: Axial CT angiography was performed with multi-slice acquisition and multi-planar and/or 3D reconstructions. CONTRAST MATERIAL: Intravenous: Omnipaque 350 Contrast volume:70 mL COMPARISON: CT CT HEAD WO from 03/02/2023 FINDINGS: CTA Neck W: Aortic arch anatomy: The aortic arch anatomy is conventional and there is no significant stenosis at the origin of the great vessels off of the aortic arch. No intimal flap evident. Anterior circulation: Both common carotid arteries ascend with normal luminal diameters. There is no significant plaque at the right carotid bulb and proximal right ICA. On the left side there is some mild calcified plaque on the medial wall of the right ICA just distal to its origin but less than 10 percent stenosis at this level. The course of the left ICA above this level is medial but patent. There is actually retropharyngeal course of both ICAs in the upper neck. There is no stenosis of these vessels in the upper neck nor within the skull base-carotid canals. Posterior circulation: Both vertebral arteries originate in conventional fashion off of the subclavian arteries and there is no obvious stenosis at the origin of the vertebral arteries. Both vertebral arteries exhibit normal luminal diameters within the foramen transversarium. Left vertebral artery is dominant. Both vertebral arteries contribute to the formation of the basilar artery at the skull base. CTA Brain W: Anterior circulation: Both internal carotid arteries are patent in the skull base-carotid canals as well as within the cavernous sinuses. The supraclinoid aspects of the ICAs are patent. Both A1 segments are patent as are the anterior cerebral arteries and there is no evidence of aneurysm at the level of the anterior communicating artery. Both middle cerebral arteries are patent with no evidence of significant stenosis nor intraluminal thrombus. There also no aneurysms of these vessels. Posterior circulation: The basilar artery ascends in the midline. Distally it gives off patent bilateral superior cerebellar arteries. Above this level the basilar artery terminates as patent bilateral posterior cerebral arteries. There is no evidence of aneurysm at the tip of the basilar artery nor elsewhere in the [id number]. CT BRAIN: There is no evidence of intracranial hemorrhage, mass effect, or shift of midline structures. There are no extra-axial fluid collections. Ventricles are not enlarged or shifted. There is abnormal hypodensity in the right occipital lobe consistent with prior infarct. This was also evident on the February 2023 study. There are no new areas of focal infarct in the brain. There are no ring enhancing lesions in the brain and no abnormal meningeal enhancement. IMPRESSION: 1. Patent carotid arteries in the neck. No hemodynamically significant stenosis. Mild calcified plaque noted in the proximal left ICA but not hemodynamically significant, estimated at approximately 10-15 percent stenosis at this level. 2. Patent vertebral arteries. 3. Patent intracranial arteries. 4. 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 No new areas of infarct evident. No abnormal enhancing structures in the brain. Quality:SDOH Health Related Social Needs: No Data to Display PFSH All Active Problems (Updated 02/10/25 @ 17:00 by Petra Venegas) Headache (Acute) Chest pain (Acute) Acute UTI (Acute) Upper respiratory infection (Acute) Exertional dyspnea (Acute) Hypoxemia (Acute) Localized osteoarthritis of right knee (Acute) Depo-medrol injection: 01/30/23 Benzodiazepine dependence (Chronic) Insomnia (Acute) Nocturnal leg cramps (Acute) Anxiety (Chronic) Hypothyroid (Chronic) Anemia (Chronic) Hearing loss (Acute) Diverticulitis (Chronic) Irritable bowel syndrome (Chronic) Arthropathy (Acute) Plantar fascial fibromatosis (Acute) Chronic kidney disease, stage 4 (severe) (Chronic) Rash (Acute) Medical History (Updated 02/10/25 @ 17:00 by Petra Venegas) Eczema Hx of intestinal obstruction History of angina Pt. 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) History of oophorectomy History of colectomy History of cataract surgery Social History Smoking/Tobacco Use Status: Former Tobacco Use Quit Date: 09/14/07 Tobacco: How many years used: 15 Smoking risk assessment performed?: Yes Alcohol Intake: never Drug use: Never Substance use type: does not use Adopted: No Caregiver/Support person: No Foster care: No Household members: spouse Housing: house Number of Children: 5 number of grandchildren: 12 Communication Needs: Corrective Lenses Do you need help understanding health information?: Often current occupation: Retired Sexually active: Yes Do you think of yourself as: straight/heterosexual Current gender identity: female What type of physical activity do you participate in: walking Frequency: daily Thi/Jew: Episcopal Seatbelt use: always Working smoke detector in home: Yes Fire extinguisher in home: Yes Carbon monox detector in home: Yes Do you feel safe at home: Yes Do you feel safe in your relationship?: Yes
[2025-02-10 09:26] LABS: Abs Immature Grans 0.13 10^3/uL (0.0-0.06); Absolute Basophil Count 0.02 10^3/uL (0.0-0.2); Absolute Lymphocyte Count 1.09 10^3/uL (1.2-3.4); Absolute Neutrophil Count 17.77 10^3/uL (1.2-6.7); Basophils % 0.1 %; HCT 35.6 % (36.0-46.0); HGB 11.4 g/dL (11.2-15.7); Immature Grans % 0.6 %; Lymphocytes % 5.4 %; MCH 30.9 pg (27.0-33.0); MCV 97 fL (80-95); MPV 10.1 fL (8.0-11.0); Monocytes % 5.6 %; Neutrophils % 88.3 %; Platelet Count 231 10^3/uL (130-400); RBC 3.69 10^6/uL (3.93-5.22); RDW 12.6 % (11.7-14.6); RDW-SD 44.5 fL; WBC 20.13 10^3/uL (4.4-10.8)
--- NOTE | 2025-02-10 09:31 | DI.RAD_ITS ---
Exam(s) XR CHEST 2V PA LATERAL EXAM: XR CHEST 2V PA LATERAL CLINICAL HISTORY: sternal CP. TECHNIQUE: 2D digital imaging was performed. COMPARISON: CR XR CHEST 2V PA LATERAL from 02/09/2025 FINDINGS: 2 views: Heart size is normal. The mediastinum is not widened. Lungs are clear. No infiltrates nor pleural effusions. IMPRESSION: No acute pulmonary findings. DATA REPOSITORY: RADIATION DOSE DELIVERED:
[2025-02-10 09:32] LABS: Absolute Monocyte Count 1.13 10^3/uL (0.1-0.8)
[2025-02-10] MEDS: Aspirin 81 MG CHEW 324 MG CH (09:42)
[2025-02-10 09:52] LABS: ALT 23 U/L (14-59); AST 20 U/L (15-37); Albumin 3.7 g/dL (3.4-5.0); Alkaline Phosphatase 100 U/L (46-116); Anion Gap 12.3 mmol/L (3-11); BUN 27 mg/dL (7-18); Bilirubin, Total 0.5 mg/dL (0.2-1.0); CO2 24.7 mmol/L (21.0-32.0); CREATININE 1.8 mg/dL (0.55-1.02); Calcium 9.8 mg/dL (8.5-10.1); Chloride 108 mmol/L (98-107); Estimated GFR 28.13 (mL/min/1.73m2); Glucose 144 mg/dL (74-106); Lipase 33 U/L (<78); Magnesium 1.9 mg/dL (1.8-2.4); Potassium 4.1 mmol/L (3.5-5.1); Sodium 145 mmol/L (136-145); Total Protein 7.8 g/dL (6.4-8.2); Troponin I 9 ng/L (<or=51)
[2025-02-10 09:57] LABS: TSH (W/Ref FT4) 1.22 uIU/mL (0.36-3.74)
[2025-02-10 10:54] LABS: Troponin I 9 ng/L (<or=51)
[2025-02-10] MEDS: Acetaminophen 325 MG TAB 650 MG PO (11:17)
[2025-02-10] MEDS: Normal Saline 500 ML IV (11:18)
[2025-02-10 11:36] LABS: NT-proBNP 1263 pg/mL (<300)
--- NOTE | 2025-02-10 12:27 | DI.CT_ITS ---
Exam(s) CT BRAIN NECK CTA EXAM: CT BRAIN NECK CTA CLINICAL HISTORY: BIRD, neck pain, CP, h/o ICH. TECHNIQUE: Imaging Protocol: Axial CT angiography was performed with multi-slice acquisition and mu lti-planar and/or 3D reconstructions. CONTRAST MATERIAL: Intravenous: Omnipaque 350 Contrast volume:70 mL COMPARISON: CT CT HEAD WO from 03/02/2023 FINDINGS: CTA Neck W: Aortic arch anatomy: The aortic arch anatomy is conventional and there is no significant stenosis at the origin of the great vessels off of the aortic arch. No intimal flap evident. Anterior circulation: Both common carotid arteries ascend with normal luminal diameters. There is no significant plaque at the right carotid bulb and proximal right ICA. On the left side th ere is some mild calcified plaque on the medial wall of the right ICA just distal to its origin but l ess than 10 percent stenosis at this level. The course of the left ICA above this level is medial bu t patent. There is actually retropharyngeal course of both ICAs in the upper neck. There is no sten osis of these vessels in the upper neck nor within the skull base-carotid canals. Posterior circulation: Both vertebral arteries originate in conventional fashion off of the subclavian arteries and there is no obvious stenosis at the origin of the vertebral arteries. Both vertebral arteries exhibit normal luminal diameters within the foramen transversarium. Left vertebral artery is dominant. Both vertebral arteries contribute to the formation of the basilar artery at the skull base. CTA Brain W: Anterior circulation: Both internal carotid arteries are patent in the skull base-carotid canals as well as within the cave rnous sinuses. The supraclinoid aspects of the ICAs are patent. Both A1 segments are patent as are the anterior cer ebral arteries and there is no evidence of aneurysm at the level of the anterior communicating artery . Both middle cerebral arteries are patent with no evidence of significant stenosis nor intraluminal th rombus. There also no aneurysms of these vessels. Posterior circulation: The basilar artery ascends in the midline. Distally it gives off patent bilateral superior cerebella r arteries. Above this level the basilar artery terminates as patent bilateral posterior cerebral arteries. There is no evidence of aneurysm at the tip of the basilar artery nor elsewhere in the [id number] is. CT BRAIN: There is no evidence of intracranial hemorrhage, mass effect, or shift of midline structures. There are no extra-axial fluid collections. Ventricles are not enlarged or shifted. There is abnormal hypodensity in the right occipital lobe consistent with prior infarct. This was al so evident on the February 2023 study. There are no new areas of focal infarct in the brain. There are no ring enhancing lesions in the brain and no abnormal meningeal enhancement. IMPRESSION: 1. Patent carotid arteries in the neck. No hemodynamically significant stenosis. Mild calcified sonia que noted in the proximal left ICA but not hemodynamically significant, estimated at approximately 10 -15 percent stenosis at this level. 2. Patent vertebral arteries. 3. Patent intracranial arteries. 4. 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 No n ew areas of infarct evident. No abnormal enhancing structures in the brain. Report called by myself to ER provider 02/10/2025 at 1:14 p.m. RADIATION DOSE DELIVERED: 2,041.74mGy.cm Total DLP DATA REPOSITORY: All CT scans at this facility are submitted to the National Radiology Data Registry (NRDR) Dose Index Registry (DIR) with the [employer] (A[employer]). RADIATION OPTIMIZATION: All CT scans at this facility use at least one of these dose optimization te chniques: automated exposure control; mA and/or kV adjustment per patient size (includes targeted exa ms where dose is matched to clinical indication); or iterative reconstruction.
[2025-02-10] MEDS: Normal Saline - Diluent 50 ML VIAL IJ (12:29)
[2025-02-10] MEDS: Omnipaque 350 MG/ML 500 ML BTL-Imaging package 70 ML IJ (12:30)
[2025-02-10 12:57] LABS: Troponin I 11 ng/L (<or=51)
[2025-02-10 14:18] LABS: D-Dimer 1012 ng/mlFEU (<500)
--- NOTE | 2025-02-10 14:21 | NUR.NOTE ---
Nursing Note: while walking around unit pt Spo2 dropped to 83% RA with audible wheezes. After sitting on stretcher for 1 min patient's spo2 90% RA
[2025-02-10 15:15] LABS: Lab Add On Test DONE
--- NOTE | 2025-02-10 16:29 | HPE_ITS ---
Date of service: 02/10/25 Time of Service: 16:29 Assessment and Plan Assessment and plan (1) Acute hypoxic respiratory failure: Status: Acute Assessment and plan: Most likely d/t URI - Hx of nicotine dependence - no PFT on records No homeo2 now needed 2 l/min to maintain sat > 92% in the ED - dropping to 85 % on ambulation- reported As below (2) COPD exacerbation: Status: Acute Assessment and plan: Hx of smoking no PFT on file- questioning emphysema Doxycycline IV Q12 methylprednisolone X1 prednisone burst O2 to maintain sat 92% Consider PE workup if not improving- hemodynamically stable now adjusted D-dimer to age cutoff is 800 the patient was at 1263 (3) Chest pain: Status: Acute Assessment and plan: Resolved in the ED ACS negative telemetry Troponin 89 then trended down (4) Encounter for deep vein thrombosis (DVT) prophylaxis: Status: Acute Assessment and plan: TEDS - history of spontaneous IH (5) Acute UTI: Status: Acute Assessment and plan: UA pending - teated in the ED on 02/09 (6) Headache: Status: Acute Assessment and plan: head/neck CTA: Imaging negative for new findings Hx of intracranial hemorrhage (7) Hypothyroid: Status: Chronic Assessment and plan: on home medicine (8) GERD (gastroesophageal reflux disease): Assessment and plan: on home medicine (9) Hyperlipidemia: Status: Acute Assessment and plan: On home medicine discussed with Dr. Goetz History of Present Illness History of Present Illness Chief Complaint: Chest pain, neck pain, headache N arrative: This 79-year-old female w a past medical history significant for intracranial hemorrhage in 2022 ,hypothyroidism , nicotine dependence w/o official COPD Dx per PFT presented to the ED with complaint of sudden onset sternal chest pain accompanied by posterior neck pain and headache starting at 2 AM. Seen yesterday for cough, diagnosed with UTI and viral illness and treated with steroids and oral antibiotics. WBC 30, D-dimer 1012, Cr 1.8 around baseline.No acute findings as per head/ neck CTA, abnormal hypodensity in the right occipital lobe consistent with prior infarct. EKG neagtive for coronary occlusion, troponin 89 with negative troponin subsequent values X2.Ongoing needs for oxygen supplementation despite negative pneumonia findings on XR. The patient was admitted to the hospitalist service to the medical surgical floor for hypoxic respiratory failure most likely in the setting of COPD/ emphysema exacerbation. Low treshold to complete PE wor-up if not improving. Full code confirmed. Report resolution of symptoms and believes that it is all d/t stress in the setting of her being dignosed with prostate CA. Reports no previous oxygen requirement except s/p knee surgery, reports smoking from 15 yo to 39 y.o-unable to give pack year data. Denies dizziness, fevers, change in vision, chest pain, nausea , vomiting; reported diarrhea s/p medicine given in the ED on 02/09 and resolution of dysuria. Review of Systems All systems reviewed & are unremarkable except as noted in HPI and below PFSH All Active Problems (Updated 02/10/25 @ 19:16 by Lidya De La Rosa APRN) Hyperlipidemia (Acute) Encounter for deep vein thrombosis (DVT) prophylaxis (Acute) COPD exacerbation (Acute) Acute hypoxic respiratory failure (Acute) Headache (Acute) Chest pain (Acute) Acute UTI (Acute) Upper respiratory infection (Acute) Exertional dyspnea (Acute) Hypoxemia (Acute) Localized osteoarthritis of right knee (Acute) Depo-medrol injection: 01/30/23 Benzodiazepine dependence (Chronic) Insomnia (Acute) Nocturnal leg cramps (Acute) Anxiety (Chronic) Hypothyroid (Chronic) Anemia (Chronic) Hearing loss (Acute) Diverticulitis (Chronic) Irritable bowel syndrome (Chronic) Arthropathy (Acute) Plantar fascial fibromatosis (Acute) Chronic kidney disease, stage 4 (severe) (Chronic) Rash (Acute) Medical History (Updated 02/10/25 @ 19:16 by Lidya De La Rosa APRN) Eczema Hx of intestinal obstruction History of angina Pt. 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) History of oophorectomy History of colectomy History of cataract surgery Social History Smoking/Tobacco Use Status: Former Tobacco Use Quit Date: 09/14/07 Tobacco: How many years used: 15 Smoking risk assessment performed?: Yes Alcohol Intake: never Drug use: Never Substance use type: does not use Adopted: No Caregiver/Support person: No Foster care: No Household members: spouse Housing: house Number of Children: 5 number of grandchildren: 12 Communication Needs: Corrective Lenses Do you need help understanding health information?: Often current occupation: Retired Sexually active: Yes Do you think of yourself as: straight/heterosexual Current gender identity: female What type of physical activity do you participate in: walking Frequency: daily Thi/Muslim: Taoist Seatbelt use: always Working smoke detector in home: Yes Fire extinguisher in home: Yes Carbon monox detector in home: Yes Do you feel safe at home: Yes Do you feel safe in your relationship?: Yes Meds Allergies and Home Medications Allergies Allergy/AdvReac Type Severity Reaction Status Date / Time sulfamethoxazole (From Allergy Unknown Skin Rash Verified 02/10/25 08:50 Bactrim) trimethoprim (From Bactrim) Allergy Unknown Skin Rash Verified 02/10/25 08:50 celecoxib (From Celebrex) AdvReac Intermediate Other (See Verified 02/10/25 08:50 Comment) Home Medications ?Medication ?Instructions ?Recorded ?Confirmed ?Type [id number] 8 mg-folic 400 1 tab PO DAILY 02/14/20 02/10/25 History mcg-K 50 mcg-lutein 300 mcg tablet (Centrum Silver Women) vitamin B complex (B 1 tab PO DAILY #90 tabs 11/19/20 02/10/25 Rx Complex-Vitamin B12 tablet) omeprazole 20 mg capsule,delayed 20 mg PO DAILY #90 caps 06/26/21 02/10/25 Rx release levothyroxine 75 mcg tablet 75 mcg PO DAILY #90 tabs 09/03/21 02/10/25 Rx lorazepam 1 mg tablet 0.5 mg (1/2 x 1 mg) PO DAILY PRN 09/03/21 02/10/25 Rx anxiety #20 tabs magnesium oxide 500 mg capsule 500 mg PO DAILY 12/14/23 02/10/25 History melatonin 5 mg tablet 5 mg PO HS PRN 02/04/24 02/10/25 History Exam Narrative Exam Narrative: Neuro:alert and oriented to self, person, place time and situation. No neurological focal deficit. Resp: shallow respiratory pattern, speaks in shortl sentences, clear lung bilaterally decreased bases Cardio: regular rhythm, S1, S2, no murmur, capillary refill<3 sec., bilateral radial and dorsalis pedis pulses are positive, palpable GI: Abdomen is not distended, soft and non tender, bowel sounds are present Extremities: strength 5/5 to bilateral lower and upper extremities Psych: RASS 0, congruent mood and normal affect. Results Labs 02/10/25 09:18 02/10/25 09:18 Labs: Laboratory Results - last 24 hr 02/10/25 02/10/25 02/10/25 09:18 10:13 12:35 WBC 20.13 H RBC 3.69 L Hgb 11.4 Hct 35.6 L MCV 97 H MCH 30.9 MCHC 32.0 RDW 12.6 Plt Count 231 MPV 10.1 Immature Gran % 0.6 Neutrophils % 88.3 Lymphocytes % 5.4 Monocytes % 5.6 Eosinophils % 0.0 Basophils % 0.1 Nucleated RBC % 0.0 Absolute Neutrophils 17.77 H Absolute Lymphocytes 1.09 L Absolute Monocytes 1.13 H Absolute Eosinophils 0.00 Absolute Basophils 0.02 D-Dimer 1012 H Sodium 145 Potassium 4.1 Chloride 108 H Carbon Dioxide 24.7 Anion Gap 12.3 H BUN 27 H Creatinine 1.8 H Est GFR (CKD-EPI 2020) 28.13 Glucose 144 H Calcium 9.8 Magnesium 1.9 Total Bilirubin 0.5 AST 20 ALT 23 Alkaline Phosphatase 100 Troponin I 9 9 11 NT-Pro-B Natriuret Pep 1263 H Total Protein 7.8 Albumin 3.7 Lipase 33 TSH 1.22 Add-On Test Request DONE Last Vital Signs Pulse 67 02/10/25 15:31 Resp 17 02/10/25 15:50 BP 153/63 H 02/10/25 15:31 Pulse Ox 94 02/10/25 15:31 Time Spent Time spent with Patient: >75 minutes Time was spent: preparing to see the patient(eg.review tests), obtaining and/or reviewing separately otained hiistory, ordering medications,tests, procedures, referring, communicating with other health md do resident urgent care, indepentently interpreting results, counseling the patient and care coordination
[2025-02-10 16:31] LABS: COVID-19 PCR Negative (Negative); Influenza A PCR Negative (Negative); Influenza B PCR Negative (Negative); RSV PCR Negative (Negative)
[2025-02-10 17:01] LABS: Source Nasopharynx
--- NOTE | 2025-02-10 17:11 | W.PC.ACHO ---
Registration Status: Primary Language: Preferred Language: ED Information & Data Chief Complaint Chest Pain 02/10/25 09:12 Triage Note Patient complaining of BIRD 02/10/25 08:48 and CP that started around 0200 today Medical / Surgical History (Last Reviewed 03/10/24 @ 12:42 by Mateo Barnhart MD) Eczema Hx of intestinal obstruction History of angina Anxiety GERD (gastroesophageal reflux disease) (Last Updated 12/26/24 @ 10:29 by JV Martin) History of total left knee replacement (12/23/23) History of oophorectomy History of colectomy History of cataract surgery Most Recent Vital Signs Pulse 83 02/10/25 16:40 Pulse 83 02/10/25 16:50 Respiratory Rate 18 02/10/25 16:50 Respiratory Effort Normal, Non-Labored 02/10/25 08:52 Respiratory Depth Normal 02/10/25 08:52 Blood Pressure 133/43 L 02/10/25 16:32 Blood Pressure Mean 77 02/10/25 16:32 Blood Pressure Position Supine 02/10/25 08:48 Pulse Oximetry 94 02/10/25 16:40 Oxygen Delivery Method Nasal Cannula 02/10/25 15:08 Oxygen Flow Rate 2 02/10/25 15:08 Pain Level 3 02/10/25 11:17 Allergies sulfamethoxazole (From Bactrim) Allergy (Unknown, Verified 02/10/25 08:50) Skin Rash trimethoprim (From Bactrim) Allergy (Unknown, Verified 02/10/25 08:50) Skin Rash celecoxib (From Celebrex) Adverse Reaction (Intermediate, Verified 02/10/25 08:50) Other (See Comment) DIZZY, HEART POUNDING Precautions Isolation Standard precaution 02/10/25 08:51 Active Medications Generic Name Dose Route Start Last Admin Trade Name Freq PRN Reason Stop Dose Admin Iohexol 70 ml 02/10/25 12:30 02/10/25 12:30 Omnipaque 350 Mg/Ml 500 Ml Btl-Imaging Package IJ 03/12/25 23:59 70 ml DIRECTED LAUREN Administration Sodium Chloride 50 ml 02/10/25 12:30 02/10/25 12:29 Normal Saline - Diluent 50 Ml Vial IJ 50 ml .FOR DI USE LAUREN Administration IV IV Catheter Type [Right Saline Lock Forearm] IV Catheter Gauge [Right 18 Forearm] Diagnostics 02/10/25 02/10/25 02/10/25 Range/Units 15:50 12:35 10:13 WBC (4.4-10.8) 10^3/uL RBC (3.93-5.22) 10^6/uL Hgb (11.2-15.7) g/dL Hct (36.0-46.0) % MCV (80-95) fL MCH (27.0-33.0) pg MCHC (32.0-36.0) % RDW (11.7-14.6) % Plt Count (130-400) 10^3/uL MPV (8.0-11.0) fL Immature Gran % % Neutrophils % % Lymphocytes % % Monocytes % % Eosinophils % % Basophils % % Nucleated RBC % (0.0-0.3) % Absolute Neutrophils (1.2-6.7) 10^3/uL Absolute Lymphocytes (1.2-3.4) 10^3/uL Absolute Monocytes (0.1-0.8) 10^3/uL Absolute Eosinophils (0.0-0.7) 10^3/uL Absolute Basophils (0.0-0.2) 10^3/uL D-Dimer (<500) ng/mlFEU Sodium (136-145) mmol/L Potassium (3.5-5.1) mmol/L Chloride (98-107) mmol/L Carbon Dioxide (21.0-32.0) mmol/L Anion Gap (3-11) mmol/L BUN (7-18) mg/dL Creatinine (0.55-1.02) mg/dL Est GFR (CKD-EPI 2020) (mL/min/1.73m2) Glucose (74-106) mg/dL Calcium (8.5-10.1) mg/dL Magnesium (1.8-2.4) mg/dL Total Bilirubin (0.2-1.0) mg/dL AST (15-37) U/L ALT (14-59) U/L Alkaline Phosphatase (46-116) U/L Troponin I 11 9 (<or=51) ng/L NT-Pro-B Natriuret Pep 1263 H (<300) pg/mL Total Protein (6.4-8.2) g/dL Albumin (3.4-5.0) g/dL Lipase (<78) U/L TSH (0.36-3.74) uIU/mL COVID-19 Source Nasopharynx SARS-CoV-2 (PCR) Negative (Negative) Influenza Type A (PCR) Negative (Negative) Influenza Type B (PCR) Negative (Negative) RSV (PCR) Negative (Negative) Add-On Test Request 02/10/25 Range/Units 09:18 WBC 20.13 H (4.4-10.8) 10^3/uL RBC 3.69 L (3.93-5.22) 10^6/uL Hgb 11.4 (11.2-15.7) g/dL Hct 35.6 L (36.0-46.0) % MCV 97 H (80-95) fL MCH 30.9 (27.0-33.0) pg MCHC 32.0 (32.0-36.0) % RDW 12.6 (11.7-14.6) % Plt Count 231 (130-400) 10^3/uL MPV 10.1 (8.0-11.0) fL Immature Gran % 0.6 % Neutrophils % 88.3 % Lymphocytes % 5.4 % Monocytes % 5.6 % Eosinophils % 0.0 % Basophils % 0.1 % Nucleated RBC % 0.0 (0.0-0.3) % Absolute Neutrophils 17.77 H (1.2-6.7) 10^3/uL Absolute Lymphocytes 1.09 L (1.2-3.4) 10^3/uL Absolute Monocytes 1.13 H (0.1-0.8) 10^3/uL Absolute Eosinophils 0.00 (0.0-0.7) 10^3/uL Absolute Basophils 0.02 (0.0-0.2) 10^3/uL D-Dimer 1012 H (<500) ng/mlFEU Sodium 145 (136-145) mmol/L Potassium 4.1 (3.5-5.1) mmol/L Chloride 108 H (98-107) mmol/L Carbon Dioxide 24.7 (21.0-32.0) mmol/L Anion Gap 12.3 H (3-11) mmol/L BUN 27 H (7-18) mg/dL Creatinine 1.8 H (0.55-1.02) mg/dL Est GFR (CKD-EPI 2020) 28.13 (mL/min/1.73m2) Glucose 144 H (74-106) mg/dL Calcium 9.8 (8.5-10.1) mg/dL Magnesium 1.9 (1.8-2.4) mg/dL Total Bilirubin 0.5 (0.2-1.0) mg/dL AST 20 (15-37) U/L ALT 23 (14-59) U/L Alkaline Phosphatase 100 (46-116) U/L Troponin I 9 (<or=51) ng/L NT-Pro-B Natriuret Pep (<300) pg/mL Total Protein 7.8 (6.4-8.2) g/dL Albumin 3.7 (3.4-5.0) g/dL Lipase 33 (<78) U/L TSH 1.22 (0.36-3.74) uIU/mL COVID-19 Source SARS-CoV-2 (PCR) (Negative) Influenza Type A (PCR) (Negative) Influenza Type B (PCR) (Negative) RSV (PCR) (Negative) Add-On Test Request DONE Intake and Output - 24 Hour Total 02/10/25 08:42 thru 02/10/25 12:38 Intake Total 510 Balance 510 Weight 66.088 kg Intake: IV 510 Falls Risk Assessment History of Falls No History 02/10/25 08:53 Contributing Factors No Factors 02/10/25 08:53 Ambulatory Aids Independent 02/10/25 08:53 Tubes/Lines None 02/10/25 08:53 Gait Evaluation No gait disturbance 02/10/25 08:53 Cognition No cognitive impairment 02/10/25 08:53 Fall Total Score 0 02/10/25 08:53 Level of Risk Standard/Low Risk 02/10/25 08:53 Problems (Last Reviewed 03/10/24 @ 12:42 by Mateo Barnhart MD) Headache (Acute) Chest pain (Acute) Exertional dyspnea (Acute) Hypoxemia (Acute) Notes 02/10/25 14:21 Nursing Notes by Maryam Oneill Nursing Note: while walking around unit pt Spo2 dropped to 83% RA with audible wheezes. After sitting on stretcher for 1 min patient's spo2 90% RA Initialized on 02/10/25 14:21 - END OF NOTE v v v v v v v v v Sending and/or Receiving Nurses: Please use comment section below to note any information pertinent to the patient hand-off not included above. Information / Comments: arrived from Ed to Rm [id number] Report received from: GISELA Francisco @[id number]
[2025-02-10] MEDS: Normal Saline Flush 10 ML SYR IVP (21:06)
[2025-02-10] MEDS: methylPREDNISolone SUCC 125 MG VIAL IVP (21:06)
[2025-02-10] MEDS: DOXYCYCLINE 100 MG in Normal Saline 100 ML IVPB (21:10)
[2025-02-11] MEDS: Levothyroxine 75 MCG TAB PO (05:23)
[2025-02-11 06:26] LABS: Bilirubin Negative (Negative); Blood Negative (Negative); Clarity Clear (Clear); Glucose Negative (Negative); Ketones Negative (Negative); Leukocyte Esterase Trace (Negative); Nitrite Negative (Negative); Specific Gravity 1.015 (1.005-1.025); Urobilinogen 0.2 mg/dL (Up to 0.2); pH 5.5 (5-8)
[2025-02-11 06:33] LABS: Bacteria Rare HPF (Negative); C & S Indicated? No; Casts Negative LPF (Negative); Crystals Negative HPF (Negative); Epithelial Cells Few HPF (Negative); Mucus Negative (Negative); RBC 0-2 HPF (0-2)
[2025-02-11 06:50] LABS: Abs Immature Grans 0.15 10^3/uL (0.0-0.06); Absolute Lymphocyte Count 1.28 10^3/uL (1.2-3.4); Basophils % 0.1 %; HCT 37.6 % (36.0-46.0); HGB 12.3 g/dL (11.2-15.7); Lymphocytes % 8.7 %; MCH 31.4 pg (27.0-33.0); MCHC 32.7 % (32.0-36.0); MCV 96 fL (80-95); MPV 10.5 fL (8.0-11.0); Monocytes % 0.7 %; Neutrophils % 89.5 %; Platelet Count 236 10^3/uL (130-400); RBC 3.92 10^6/uL (3.93-5.22); RDW 12.8 % (11.7-14.6); RDW-SD 44.9 fL
[2025-02-11 06:52] LABS: Absolute Basophil Count 0.01 10^3/uL (0.0-0.2); Absolute Neutrophil Count 13.16 10^3/uL (1.2-6.7)
[2025-02-11 07:04] LABS: Anion Gap 11.5 mmol/L (3-11); BUN 29 mg/dL (7-18); CO2 22.5 mmol/L (21.0-32.0); CREATININE 1.5 mg/dL (0.55-1.02); Calcium 9.4 mg/dL (8.5-10.1); Chloride 108 mmol/L (98-107); Estimated GFR 35.01 (mL/min/1.73m2); Glucose 156 mg/dL (74-106); Potassium 4.5 mmol/L (3.5-5.1); Sodium 142 mmol/L (136-145)
[2025-02-11 08:04] VITALS: O2SAT 97
--- NOTE | 2025-02-11 08:55 | PDOC.CMIN ---
Date of service: 02/11/25 Time of Service: 12:15 Care Management Initial Assmt Initial Assessment Reason for Hospitalization: CVA, COPD exacerbation Functional Status/Living Situation Patient Presentation: Giovana was sitting in her chair and eating lunch, when CM arrived. Giovana presented to the ED for evaluation of sudden onset sternal chest pain accompanied by posterior neck pain and headache. She is a pleasant lady who is living in her [facility] home, with 2 entry steps, with her . Giovana states that her does most of their driving, and her daughter's help them meet their needs. Giovana refuses Home Health and community resources at this time. Town of Residence: [facility] Resides with: Spouse Significant Other/Family: Local (Giovana has 2 daughters locally and 3 daughters living in [place]. She states she has 12 grandchildren and 16 Great Grandchildren ) Caregiver/Guardian: She provides support to her Natural Supports: Family Employment Status: Retired Instrumental Activities of Daily Living (ADLs): Independent Activities/Hobbies/SocialSupport: Gardening, biking, exercising outside Medications Medication Management: No Issues/Barriers identified Advance Directives Advance Directives: Do you have an Advance Directive: Y 12/14/23 16:32 AD On File at [facility]: Y 12/14/23 16:32 Date Asked 12/26/24 12/26/24 10:48 AD Date Reviewed 02/10/25 02/10/25 08:46 COLST On File at [facility] COLST Date Scanned Code Status Resuscitation Status Full Code Portal Pt does not currently have a portal and education provided: Yes Insurance Coverage/Financial Issues Insurance: Medicare Part A & B [facility] Care Team Visit Care Team Role Provider Type Dolores Laura NP NURSE PRACTITIONER Juana Melchor NP Primary Care Provider NURSE PRACTITIONER Petra Venegas Emergency Provider NURSE PRACTITIONER Mickey Goetz Admit Provider [facility] STAFF PHYSICIAN Attending Provider Discharge Potential Discharge Needs: PCP F/U Appt Anticipated Barriers to Discharge: None Identified Patient/Family Education Needs: Review discharge instructions, discuss Ask Me Three Transportation: Private vehicle () Plan: Giovana will be discharged home today with no new services. She will follow up with her community providers and continue per her plan of care. She will be transported via private vehicle by her family. Social Determinants of Health Screening Social Determinants of health last assessed in clinic: 02/11/25 Will the Patient Participate in the Screening?: Yes Do you worry about having a steady place to live?: no Problems where you live: no known problems In the past 12 months, have you had to go without electric, gas, oil or water in your home?: no 1. Within the past 12 months, we worried whether our food would run out before we got money to buy more.: Never true 2. Within the past 12 months, the food we bought just didn't last and we didn't have money to get more.: Never true Has lack of transportation kept you from medical appointments or from doing things needed for daily living?: no Has anyone in your life made you feel unsafe or unsupported?: no How hard is it for you to pay for the very basics like food, housing, medical care, and heating? Would you say it is:: Not hard at all Do you want help finding or keeping work or a job?: I do not need or want help If for any reason you need help with day-to-day activities such as bathing, preparing meals, shopping, managing finances, etc., do you get the help you need?: I don?t need any help How often do you feel lonely or isolated from those around you?: Never Do you speak a language other than Greek at home?: No Does the patient want assistance with any of the above?: No PFSH All Active Problems (Updated 02/10/25 @ 19:16 by Lidya De La Rosa APRN) Hyperlipidemia (Acute) Encounter for deep vein thrombosis (DVT) prophylaxis (Acute) COPD exacerbation (Acute) Acute hypoxic respiratory failure (Acute) Headache (Acute) Chest pain (Acute) Acute UTI (Acute) Upper respiratory infection (Acute) Exertional dyspnea (Acute) Hypoxemia (Acute) Localized osteoarthritis of right knee (Acute) Depo-medrol injection: 01/30/23 Benzodiazepine dependence (Chronic) Insomnia (Acute) Nocturnal leg cramps (Acute) Anxiety (Chronic) Hypothyroid (Chronic) Anemia (Chronic) Hearing loss (Acute) Diverticulitis (Chronic) Irritable bowel syndrome (Chronic) Arthropathy (Acute) Plantar fascial fibromatosis (Acute) Chronic kidney disease, stage 4 (severe) (Chronic) Rash (Acute) Medical History (Updated 02/10/25 @ 19:16 by Lidya De La Rosa APRN) Eczema Hx of intestinal obstruction History of angina Pt. 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) History of oophorectomy History of colectomy History of cataract surgery Social History Smoking/Tobacco Use Status: Former Tobacco Use Quit Date: 09/14/07 Tobacco: How many years used: 15 Smoking risk assessment performed?: Yes Alcohol Intake: never Drug use: Never Substance use type: does not use Adopted: No Caregiver/Support person: No Foster care: No Household members: spouse Housing: house Number of Children: 5 number of grandchildren: 12 Communication Needs: Corrective Lenses Do you need help understanding health information?: Often current occupation: Retired Sexually active: Yes Do you think of yourself as: straight/heterosexual Current gender identity: female What type of physical activity do you participate in: walking Frequency: daily Thi/Voodoo: Evangelical Seatbelt use: always Working smoke detector in home: Yes Fire extinguisher in home: Yes Carbon monox detector in home: Yes Do you feel safe at home: Yes Do you feel safe in your relationship?: Yes Readmission Within the Past 30 Days Yes or No: No
[2025-02-11 08:57] VITALS: BP 128/61; PULSE 77; RESP 16; TEMP 36.2; O2SAT 94
[2025-02-11] MEDS: Vitamins B Comp w/C TAB 1 TAB PO (10:07)
[2025-02-11] MEDS: Multivitamin TAB 1 TAB PO (10:08)
[2025-02-11] MEDS: Magnesium Oxide 400 MG TAB PO (10:08)
[2025-02-11] MEDS: Omeprazole 20 MG CAPCR PO (10:08)
[2025-02-11] MEDS: Normal Saline Flush 10 ML SYR IVP (10:09)
[2025-02-11] MEDS: predniSONE 20 MG TAB 40 MG PO (10:09)
[2025-02-11] MEDS: DOXYCYCLINE 100 MG in Normal Saline 100 ML IVPB (10:11)
--- NOTE | 2025-02-11 13:15 | DSE_ITS ---
Date of service: 02/11/25 Time of Service: 13:15 DS: Diagnosis Discharge Diagnosis (1) Acute hypoxic respiratory failure: Status: Acute (2) COPD exacerbation: Status: Acute (3) Chest pain: Status: Acute (4) Encounter for deep vein thrombosis (DVT) prophylaxis: Status: Acute (5) Acute UTI: Status: Acute (6) Headache: Status: Acute (7) Hypothyroid: Status: Chronic (8) GERD (gastroesophageal reflux disease): (9) Hyperlipidemia: Status: Acute Discharge Plan Disposition Patient Disposition: Home Condition: Improving Discharge Details Reason For Visit: CVA, COPD exacerbation Admit Date/Time: 02/10/25 16:55 Admit Provider: Mickey Goetz Attending Provider: Mickey Goetz [facility] Hospital Course: This is an 79-year-old female patient presented to the emergency department with shortness of breath found to have acute hypoxic respiratory failure secondary to a COPD exacerbation. She was started on IV doxycycline and steroids and admitted to the hospitalist services. Of note she also did receive a one-time dose of fosfomycin to treat a urinary tract infection. Her urine did grow greater than 100,000 colony of E. coli which was pansensitive. She has no further symptoms of urinary tract infection. Hemodynamically she has remained stable she has been weaned off oxygen. She is eating and drinking bowels and bladder functioning. She is requesting discharge to home. She will be discharged to home on 4 more days of doxycycline to complete a 5-day course in addition to a steroid burst. She was advised to return for new or worsening symptoms. She is discharged to home by private vehicle with no new services Discharge discussed with Dr. Hooks Home Meds and New Rx's Prescriptions: New prednisone 20 mg Tablet 40 mg PO DAILY Qty: 8 0RF doxycycline hyclate 100 mg capsule 100 mg PO BID Qty: 9 0RF Rx Instructions: start tonight 02/11/2025 No Action magnesium oxide 500 mg capsule 500 mg PO DAILY melatonin 5 mg tablet 5 mg PO HS PRN vitamin B complex [B Complex-Vitamin B12] Tablet 1 tab PO DAILY Qty: 90 3RF omeprazole 20 mg capsule,delayed release(DR/EC) 20 mg PO DAILY Qty: 90 2RF lorazepam 1 mg tablet 0.5 mg PO DAILY PRN (Reason: anxiety) Qty: 20 0RF levothyroxine 75 mcg tablet 75 mcg PO DAILY Qty: 90 3RF Centrum Silver Women 8 mg iron-400 mcg-300 mcg Tablet 1 tab PO DAILY Discharge Instructions Instructions: COPD Exacerbation, Adult ED Additional Instructions: Continue steroids and antibiotics for 4 more days as directed Drink 6 to 8 glasses of water daily to stay well-hydrated Resume previous meds as directed Stand Alone Forms: Nursing Discharge Form Referrals: Juana Melchor NP [Primary Care Provider] - (Please call the office on Thursday to set up a hospital follow up within 7-10 days! ) Activity:: Activity as Tolerated Equipment/Supplies:: No Equipment Needed Diet:: As Tolerated Discharge Orders Discharge Orders: Discharge Order (Routine); Ordered 02/11/25 Ordered By: Dolores Laura Discharge Data Discharge Date/Time-TO BE ENTERED AT DEPARTURE: 02/11/25 13:59 DS: Summary Time Spent with Patient providing and/or coordinating discharge services: Less than 30 minutes Status at Discharge Functional status at discharge: independent ambulation Overall status at discharge: patient is back to baseline Mental Status: mental status grossly normal Speech and Movement: speech and movement normal Mood: congruent mood Affect: normal affect Quality:SDOH Health Related Social Needs: No Data to Display Exam Const General: cooperative and no acute distress Orientation: alert, awake and oriented x3 HENMT Head: normal to inspection Ears: hearing grossly normal bilaterally Face and sinus: normal facial exam Mouth: oral mucosae normal Eyes General: appearance normal, both eyes and all related structures Pupils: PERRL EOM: EOM intact bilaterally Neck Neck: normal visual inspection Chest Chest: normal inspection of the chest Resp Effort & Inspection: normal respiratory effort and able to speak in complete sentences Auscultation: clear to auscultation bilaterally Cardio Rate: regular rate Rhythm: regular rhythm GI Inspection: normal to inspection Palpation: soft and nontender Auscultation: normal bowel sounds Skin General skin exam: no rashes or lesions noted Neuro General: patient alert, patient awake, patient oriented x3 and moves all extremities Cognition: normal cognition Speech: speech normal Motor: muscle tone normal throughout Extrem General: normal to inspection, full ROM and no edema Psych Appearance: grossly normal Mental Status: mental status grossly normal Speech and Movement: speech and movement normal Mood: congruent mood Affect: normal affect DS: Data Vitals/I&O Vitals and I&O: Vital Signs Temperature 36.2 C L 02/11/25 08:57 Temperature Source Temporal Artery Scan 02/11/25 08:57 Pulse 77 02/11/25 08:57 Pulse Rhythm Regular 02/10/25 17:55 Pulse 76 02/10/25 17:00 Respiratory Rate 16 02/11/25 08:57 Respiratory Effort Normal, Short of Breath 02/10/25 17:55 Respiratory Depth Normal 02/10/25 17:55 Blood Pressure 128/61 02/11/25 08:57 Blood Pressure Mean 83 02/11/25 08:57 Blood Pressure Position Supine 02/10/25 08:48 Pulse Oximetry 94 02/11/25 08:57 Oxygen Delivery Method Room Air 02/11/25 08:57 Oxygen Flow Rate 0 02/11/25 08:57 Pain Level 0 02/11/25 08:57 Intake & Output 02/10/25 02/11/25 02/11/25 23:59 11:59 23:59 Intake Total 600 / 610 100 / 100 Output Total 125 / 125 550 / 550 Balance 475 / 485 -550 / -450 100 / -450 Intake: IV 600 / 610 100 / 100 Output: Urine 125 / 125 550 / 550 Other: Urine Color Pale Yellow Yellow Urine Appearance Clear Clear Urine Odor Normal None Stool Size Moderate Stool Characteristics Formed Data Completed and Pending Labs on day of discharge: Labs from last 24 hours 02/11/25 02/11/25 02/10/25 06:07 05:35 15:50 WBC 14.70 H RBC 3.92 L Hgb 12.3 Hct 37.6 MCV 96 H MCH 31.4 MCHC 32.7 RDW 12.8 Plt Count 236 MPV 10.5 Immature Gran % 1.0 Neutrophils % 89.5 Lymphocytes % 8.7 Monocytes % 0.7 Eosinophils % 0.0 Basophils % 0.1 Nucleated RBC % 0.0 Absolute Neutrophils 13.16 H Absolute Lymphocytes 1.28 Absolute Monocytes 0.10 Absolute Eosinophils 0.00 Absolute Basophils 0.01 D-Dimer Sodium 142 Potassium 4.5 Chloride 108 H Carbon Dioxide 22.5 Anion Gap 11.5 H BUN 29 H Creatinine 1.5 H Est GFR (CKD-EPI 2020) 35.01 Glucose 156 H Calcium 9.4 Urine Color Yellow Urine Clarity Clear Urine pH 5.5 Ur Specific [place] 1.015 Urine Protein Negative Urine Ketones Negative Urine Blood Negative Urine Nitrite Negative Urine Bilirubin Negative Urine Urobilinogen 0.2 Ur Leukocyte Esterase Trace H Urine RBC 0-2 Urine WBC 3-5 Ur Epithelial Cells Few Urine Crystals Negative Urine Bacteria Rare Urine Casts Negative Urine Mucus Negative Ur Culture Indicated? No Urine Glucose Negative COVID-19 Source Nasopharynx SARS-CoV-2 (PCR) Negative Influenza Type A (PCR) Negative Influenza Type B (PCR) Negative RSV (PCR) Negative Add-On Test Request 02/10/25 09:18 WBC RBC Hgb Hct MCV MCH MCHC RDW Plt Count MPV Immature Gran % Neutrophils % Lymphocytes % Monocytes % Eosinophils % Basophils % Nucleated RBC % Absolute Neutrophils Absolute Lymphocytes Absolute Monocytes Absolute Eosinophils Absolute Basophils D-Dimer 1012 H Sodium Potassium Chloride Carbon Dioxide Anion Gap BUN Creatinine Est GFR (CKD-EPI 2020) Glucose Calcium Urine Color Urine Clarity Urine pH Ur Specific [place] Urine Protein Urine Ketones Urine Blood Urine Nitrite Urine Bilirubin Urine Urobilinogen Ur Leukocyte Esterase Urine RBC Urine WBC Ur Epithelial Cells Urine Crystals Urine Bacteria Urine Casts Urine Mucus Ur Culture Indicated? Urine Glucose COVID-19 Source SARS-CoV-2 (PCR) Influenza Type A (PCR) Influenza Type B (PCR) RSV (PCR) Add-On Test Request DONE PFSH All Active Problems (Updated 02/10/25 @ 19:16 by Lidya De La Rosa APRN) Hyperlipidemia (Acute) Encounter for deep vein thrombosis (DVT) prophylaxis (Acute) COPD exacerbation (Acute) Acute hypoxic respiratory failure (Acute) Headache (Acute) Chest pain (Acute) Acute UTI (Acute) Upper respiratory infection (Acute) Exertional dyspnea (Acute) Hypoxemia (Acute) Localized osteoarthritis of right knee (Acute) Depo-medrol injection: 01/30/23 Benzodiazepine dependence (Chronic) Insomnia (Acute) Nocturnal leg cramps (Acute) Anxiety (Chronic) Hypothyroid (Chronic) Anemia (Chronic) Hearing loss (Acute) Diverticulitis (Chronic) Irritable bowel syndrome (Chronic) Arthropathy (Acute) Plantar fascial fibromatosis (Acute) Chronic kidney disease, stage 4 (severe) (Chronic) Rash (Acute) Medical History (Updated 02/10/25 @ 19:16 by Lidya De La Rosa APRN) Eczema Hx of intestinal obstruction History of angina Pt. 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) History of oophorectomy History of colectomy History of cataract surgery Social History Smoking/Tobacco Use Status: Former Tobacco Use Quit Date: 09/14/07 Tobacco: How many years used: 15 Smoking risk assessment performed?: Yes Alcohol Intake: never Drug use: Never Substance use type: does not use Adopted: No Caregiver/Support person: No Foster care: No Household members: spouse Housing: house Number of Children: 5 number of grandchildren: 12 Communication Needs: Corrective Lenses Do you need help understanding health information?: Often current occupation: Retired Sexually active: Yes Do you think of yourself as: straight/heterosexual Current gender identity: female What type of physical activity do you participate in: walking Frequency: daily Thi/Denominational: Jew Seatbelt use: always Working smoke detector in home: Yes Fire extinguisher in home: Yes Carbon monox detector in home: Yes Do you feel safe at home: Yes Do you feel safe in your relationship?: Yes Time Spent with Patient Time Spent with Patient: <45 minutes Time was spent: preparing to see the patient(eg.review tests), obtaining and/or reviewing separately otained hiistory, ordering medications,tests, procedures, indepentently interpreting results and counseling the patient
--- NOTE | 2025-02-11 14:08 | PT.INNT ---
PT Notes Visit Reasons: CVA, COPD exacerbation PT evaluation ordered on 02/11/2025 at 11:56 AM and patient was discharged home prior to evaluation being completed.
== END 2025-02-11 13:59 | disposition home or self-care (01) | DRG 190 ==
LOC: ER 17:00 → MS 17:45
PROVIDERS: Nurse Practitioner Acute Care; Admitting Provider Family Medicine; Emergency Provider Nurse Practitioner Family; PCP Nurse Practitioner Family; Responsible Provider Nurse Practitioner Acute Care; Visit Provider Family Medicine
DX: J44.1 Chronic obstructive pulmonary disease with (acute) exacerbation (principal); J96.01 Acute respiratory failure with hypoxia; N39.0 Urinary tract infection, site not specified; F13.20 Sedative, hypnotic or anxiolytic dependence, uncomplicated; N18.4 Chronic kidney disease, stage 4 (severe); R07.89 Other chest pain; R51.9 Headache, unspecified; E03.9 Hypothyroidism, unspecified; K21.9 Gastro-esophageal reflux disease without esophagitis; E78.5 Hyperlipidemia, unspecified; B96.20 Unspecified Escherichia coli [E. coli] as the cause of diseases classified elsewhere; Z87.891 Personal history of nicotine dependence; M54.2 Cervicalgia; Z86.73 Personal history of transient ischemic attack (TIA), and cerebral infarction without residual deficits; M17.11 Unilateral primary osteoarthritis, right knee; G47.00 Insomnia, unspecified; G47.62 Sleep related leg cramps; K58.9 Irritable bowel syndrome, unspecified; D64.9 Anemia, unspecified; F41.9 Anxiety disorder, unspecified
CPT/HCPCS: 00123; 36415; 70496; 70498; 80048; 80053; 83690; 87637; 93005; 96361; 96365; 96366; 96375; 96376; 99285; 71046; 81003; 81015; 83735; 83880; 84443; 84484; 85025; 85379; 93010; 94760; 99223; 99238; J2919; J7512

== ENCOUNTER 2025-03-07 15:09 | Emergency (ER) | payer MEDICARE, OTHER, SELFPAY ==
[2025-03-07] VITALS (10 sets, daily range): BP systolic 137–153; BP diastolic 57–64; PULSE 84–107; RESP 16–25; TEMP 36.7; O2SAT 89–93
[2025-03-07 15:50] LABS: Abs Immature Grans 0.03 10^3/uL (0.0-0.06); Absolute Basophil Count 0.04 10^3/uL (0.0-0.2); Absolute Eosinophil Count 0.41 10^3/uL (0.0-0.7); Absolute Lymphocyte Count 2.16 10^3/uL (1.2-3.4); Absolute Neutrophil Count 3.01 10^3/uL (1.2-6.7); Basophils % 0.6 %; Eosinophils % 6.5 %; HGB 10.3 g/dL (11.2-15.7); Immature Grans % 0.5 %; MCH 30.8 pg (27.0-33.0); MCHC 32.2 % (32.0-36.0); MCV 96 fL (80-95); Neutrophils % 47.4 %; Platelet Count 197 10^3/uL (130-400); RBC 3.34 10^6/uL (3.93-5.22); RDW 12.8 % (11.7-14.6); RDW-SD 44.2 fL; WBC 6.35 10^3/uL (4.4-10.8)
--- NOTE | 2025-03-07 15:57 | DI.RAD_ITS ---
Exam(s) XR CHEST 2V PA LATERAL EXAM: XR CHEST 2V PA LATERAL CLINICAL HISTORY: sob TECHNIQUE: 2D digital imaging was performed of the chest. Two images were obtained. PA and lateral views were obtained. COMPARISON: CR XR CHEST 2V PA LATERAL from 02/10/2025 FINDINGS: MEDIASTINUM: Normal. HEART: Normal. PULMONARY VASCULATURE: Normal. LUNGS: Clear. PLEURAL SPACE: No pleural effusion or pneumothorax. BONE:Within normal limits for the patient's age. OTHER FINDINGS:Normal. IMPRESSION: No acute pulmonary findings. DATA REPOSITORY: RADIATION DOSE DELIVERED:
[2025-03-07 16:16] LABS: ALT 23 U/L (14-59); AST 20 U/L (15-37); Albumin 3.5 g/dL (3.4-5.0); Alkaline Phosphatase 101 U/L (46-116); Anion Gap 8.4 mmol/L (3-11); BUN 21 mg/dL (7-18); Bilirubin, Total 0.3 mg/dL (0.2-1.0); CO2 25.6 mmol/L (21.0-32.0); CREATININE 1.6 mg/dL (0.55-1.02); Calcium 8.5 mg/dL (8.5-10.1); Chloride 110 mmol/L (98-107); Glucose 127 mg/dL (74-106); NT-proBNP 449 pg/mL (<300); Potassium 3.7 mmol/L (3.5-5.1); Sodium 144 mmol/L (136-145); Total Protein 6.7 g/dL (6.4-8.2); Troponin I 7 ng/L (<or=51)
[2025-03-07 16:26] LABS: COVID-19 PCR Negative (Negative); Influenza A PCR Negative (Negative); Influenza B PCR Negative (Negative); RSV PCR Negative (Negative)
[2025-03-07 16:27] LABS: Source Nasopharynx
[2025-03-07 16:37] LABS: BE (Venous) 1 mmol/L (-2-3); HCO3 (Venous) 26 mmol/L (23-28); O2 Sat (Venous) 59 %; TCO2 (Venous) 24 mmol/L (24-29); pCO2 (Venous) 44 mmHg (41-51); pH (Venous) 7.38 (7.31-7.41); pO2 (Venous) 32 mmHg
[2025-03-07 16:55] LABS: Troponin I 7 ng/L (<or=51)
--- NOTE | 2025-03-07 17:16 | W.ED.GENAD ---
Discharge Plan Disposition Patient Disposition: Home Condition: Stable Discharge Details Clinical Impression: Chronic shortness of breath Primary Care Provider: Juana Melchor ED Provider: Carlos Frances Home Meds and New Rx's Prescriptions: New promethazine 6.25 mg/5 mL syrup 12.5 mg PO Q6H PRN (Reason: cough) Qty: 120 0RF No Action magnesium oxide 500 mg capsule 500 mg PO DAILY melatonin 5 mg tablet 5 mg PO HS PRN vitamin B complex [B Complex-Vitamin B12] Tablet 1 tab PO DAILY Qty: 90 3RF atorvastatin 20 mg tablet 20 mg PO DAILY Patient Comments: TAKE ONE TABLET BY MOUTH EVERY EVENING FOR HIGH CHOLESTROL loratadine [Claritin] 10 mg tablet 10 mg PO DAILY Qty: 90 3RF omeprazole 20 mg capsule,delayed release(DR/EC) 20 mg PO DAILY Qty: 90 2RF lorazepam 1 mg tablet 0.5 mg PO DAILY PRN (Reason: anxiety) Qty: 20 0RF levothyroxine 75 mcg tablet 75 mcg PO DAILY Qty: 90 3RF albuterol sulfate 90 mcg/actuation HFA aerosol inhaler 2 puff inhalation Q6H PRN (Reason: shortness of breath or wheezing) Qty: 8.5 3RF Centrum Silver Women 8 mg iron-400 mcg-300 mcg Tablet 1 tab PO DAILY Discharge Instructions Instructions: Shortness of breath Additional Instructions: lab work and chest xray are very reassuring no need for antibiotics today continue your albuterol inhaler every 4-6 hours for your cough cough medication has been sent to the pharmacy. please return with worsening symptoms and follow up with your PCP HPI General Date/Time Provider Initiated Documentation: 03/07/25 15:23. Limitations to Documentation: no limitations. Information obtained by: patient. HPI Narrative: 7-year-old female with past medical history of COPD, hypothyroid, CKD presents for evaluation of shortness of breath. She reports that she was sick a couple of weeks ago and hospitalized, and felt better. She reports that this morning she started feeling short of breath and having persistent cough. Cough is not productive. Not associated with any fever or chills. She reports some tightness that is making it difficult to take a deep breath, but denies any chest pain. She denies any lower extremity swelling. Shortness of breath not worse with any exertion. She has been using her albuterol inhaler which does make her feel better, but then she gets short of breath later. Related Data Home Medications ?Medication ?Instructions ?Recorded ?Confirmed [id number] 8 mg-folic 400 1 tab PO DAILY 02/14/20 03/07/25 mcg-K 50 mcg-lutein 300 mcg tablet (Centrum Silver Women) vitamin B complex (B 1 tab PO DAILY #90 tabs 11/19/20 03/07/25 Complex-Vitamin B12 tablet) omeprazole 20 mg capsule,delayed 20 mg PO DAILY #90 caps 06/26/21 03/07/25 release levothyroxine 75 mcg tablet 75 mcg PO DAILY #90 tabs 09/03/21 03/07/25 lorazepam 1 mg tablet 0.5 mg (1/2 x 1 mg) PO DAILY PRN 09/03/21 03/07/25 anxiety #20 tabs magnesium oxide 500 mg capsule 500 mg PO DAILY 12/14/23 03/07/25 melatonin 5 mg tablet 5 mg PO HS PRN 02/04/24 03/07/25 albuterol sulfate 90 mcg/actuation 2 puff inhalation Q6H PRN 02/17/25 03/07/25 aerosol inhaler shortness of breath or wheezing #8.5 grams atorvastatin 20 mg tablet 20 mg PO DAILY 02/22/25 03/07/25 loratadine 10 mg tablet (Claritin) 10 mg PO DAILY #90 tabs 02/22/25 03/07/25 promethazine 6.25 mg/5 mL oral 12.5 mg (10 mL) PO Q6H PRN cough 03/07/25 syrup #120 mL Previous Rx's ?Medication ?Instructions ?Recorded vitamin B complex (B 1 tab PO DAILY #90 tabs 11/19/20 Complex-Vitamin B12 tablet) omeprazole 20 mg capsule,delayed 20 mg PO DAILY #90 caps 06/26/21 release levothyroxine 75 mcg tablet 75 mcg PO DAILY #90 tabs 09/03/21 lorazepam 1 mg tablet 0.5 mg (1/2 x 1 mg) PO DAILY PRN 09/03/21 anxiety #20 tabs albuterol sulfate 90 mcg/actuation 2 puff inhalation Q6H PRN 02/17/25 aerosol inhaler shortness of breath or wheezing #8.5 grams loratadine 10 mg tablet (Claritin) 10 mg PO DAILY #90 tabs 02/22/25 promethazine 6.25 mg/5 mL oral 12.5 mg (10 mL) PO Q6H PRN cough 03/07/25 syrup #120 mL Allergies Allergy/AdvReac Type Severity Reaction Status Date / Time sulfamethoxazole (From Allergy Unknown Skin Rash Verified 02/22/25 09:55 Bactrim) trimethoprim (From Bactrim) Allergy Unknown Skin Rash Verified 02/22/25 09:55 celecoxib (From Celebrex) AdvReac Intermediate Other (See Verified 02/22/25 09:55 Comment) General Stated Complaint: RespSymp YO: 3 Exam Narrative Exam Narrative: Review of Systems: All systems reviewed & are unremarkable except as noted in HPI and below Well-developed, no acute distress NCAT PERRL, normal conjunctiva RRR Unlabored respiratory effort mild hypoxia at 88, but improved quickly to 92 with some deep breaths. Crackles of bilateral bright bases, no wheezing, no tachypnea speaking in full and complete sentences Nondistended abdomen Extremities w/o edema Course Vital Signs Vital signs: Vital Signs Temperature 36.7 C 03/07/25 15:10 Pulse 102 H 03/07/25 15:10 Respiratory Rate 16 03/07/25 15:10 Blood Pressure 137/64 03/07/25 15:10 Pulse Oximetry 89 L 03/07/25 15:10 Temperature 36.7 C 03/07/25 15:24 Pulse 84 03/07/25 17:10 Pulse 91 H 03/07/25 15:40 Respiratory Rate 25 H 03/07/25 15:40 Respiratory Effort Non-Labored, Short of Breath 03/07/25 15:24 Respiratory Depth Normal 03/07/25 15:24 Blood Pressure 137/64 03/07/25 15:24 Pulse Oximetry 90 L 03/07/25 17:10 Oxygen Delivery Method Room Air 03/07/25 15:24 Oxygen Flow Rate 0 03/07/25 15:24 Pain Level 0 03/07/25 15:24 Lab/Test Results Lab/Test Results: Laboratory Tests Range/Units 03/07/25 03/07/25 03/07/25 15:38 15:38 16:27 WBC (4.4-10.8) 10^3/uL 6.35 RBC (3.93-5.22) 10^6/uL 3.34 L Hgb (11.2-15.7) g/dL 10.3 L Hct (36.0-46.0) % 32.0 L MCV (80-95) fL 96 H MCH (27.0-33.0) pg 30.8 MCHC (32.0-36.0) % 32.2 RDW (11.7-14.6) % 12.8 Plt Count (130-400) 10^3/uL 197 MPV (8.0-11.0) fL 10.0 Immature Gran % % 0.5 Neutrophils % % 47.4 Lymphocytes % % 34.0 Monocytes % % 11.0 Eosinophils % % 6.5 Basophils % % 0.6 Nucleated RBC % (0.0-0.3) % 0.0 Absolute Neutrophils (1.2-6.7) 10^3/uL 3.01 Absolute Lymphocytes (1.2-3.4) 10^3/uL 2.16 Absolute Monocytes (0.1-0.8) 10^3/uL 0.70 Absolute Eosinophils (0.0-0.7) 10^3/uL 0.41 Absolute Basophils (0.0-0.2) 10^3/uL 0.04 VBG pH (7.31-7.41) 7.38 VBG pCO2 (41-51) mmHg 44 VBG pO2 mmHg 32 VBG HCO3 (23-28) mmol/L 26 VBG Total CO2 (24-29) mmol/L 24 VBG O2 Saturation % 59 VBG Base Excess (-2-3) mmol/L 1 Sodium (136-145) mmol/L 144 Potassium (3.5-5.1) mmol/L 3.7 Chloride (98-107) mmol/L 110 H Carbon Dioxide (21.0-32.0) mmol/L 25.6 Anion Gap (3-11) mmol/L 8.4 BUN (7-18) mg/dL 21 H Creatinine (0.55-1.02) mg/dL 1.6 H Est GFR (CKD-EPI 2020) (mL/min/1.73m2) 32.40 Glucose (74-106) mg/dL 127 H Calcium (8.5-10.1) mg/dL 8.5 Total Bilirubin (0.2-1.0) mg/dL 0.3 AST (15-37) U/L 20 ALT (14-59) U/L 23 Alkaline Phosphatase (46-116) U/L 101 Troponin I (<or=51) ng/L 7 7 NT-Pro-B Natriuret Pep (<300) pg/mL 449 H Cancelled Total Protein (6.4-8.2) g/dL 6.7 Albumin (3.4-5.0) g/dL 3.5 COVID-19 Source Nasopharynx SARS-CoV-2 (PCR) (Negative) Negative Influenza Type A (PCR) (Negative) Negative Influenza Type B (PCR) (Negative) Negative RSV (PCR) (Negative) Negative Range/Units 03/07/25 18:24 WBC (4.4-10.8) 10^3/uL RBC (3.93-5.22) 10^6/uL Hgb (11.2-15.7) g/dL Hct (36.0-46.0) % MCV (80-95) fL MCH (27.0-33.0) pg MCHC (32.0-36.0) % RDW (11.7-14.6) % Plt Count (130-400) 10^3/uL MPV (8.0-11.0) fL Immature Gran % % Neutrophils % % Lymphocytes % % Monocytes % % Eosinophils % % Basophils % % Nucleated RBC % (0.0-0.3) % Absolute Neutrophils (1.2-6.7) 10^3/uL Absolute Lymphocytes (1.2-3.4) 10^3/uL Absolute Monocytes (0.1-0.8) 10^3/uL Absolute Eosinophils (0.0-0.7) 10^3/uL Absolute Basophils (0.0-0.2) 10^3/uL VBG pH (7.31-7.41) VBG pCO2 (41-51) mmHg VBG pO2 mmHg VBG HCO3 (23-28) mmol/L VBG Total CO2 (24-29) mmol/L VBG O2 Saturation % VBG Base Excess (-2-3) mmol/L Sodium (136-145) mmol/L Potassium (3.5-5.1) mmol/L Chloride (98-107) mmol/L Carbon Dioxide (21.0-32.0) mmol/L Anion Gap (3-11) mmol/L BUN (7-18) mg/dL Creatinine (0.55-1.02) mg/dL Est GFR (CKD-EPI 2020) (mL/min/1.73m2) Glucose (74-106) mg/dL Calcium (8.5-10.1) mg/dL Total Bilirubin (0.2-1.0) mg/dL AST (15-37) U/L ALT (14-59) U/L Alkaline Phosphatase (46-116) U/L Troponin I (<or=51) ng/L Cancelled NT-Pro-B Natriuret Pep (<300) pg/mL Total Protein (6.4-8.2) g/dL Albumin (3.4-5.0) g/dL COVID-19 Source SARS-CoV-2 (PCR) (Negative) Influenza Type A (PCR) (Negative) Influenza Type B (PCR) (Negative) RSV (PCR) (Negative) Medical Decision Making Emergent evaluation of shortness of breath. Patient has some mild hypoxia that is transient on initial examination. There is no wheezing signs of acute respiratory failure. The patient does have some crackles but no other signs of volume overload. Recent hospitalization was secondary to COPD exacerbation and the patient was treated with antibiotics and steroid therapy. Symptoms from that episode resolved and she recently saw her PCP in clinic for follow-up and seemed to be doing well at that time. Lab work was reviewed, no leukocytosis, mild decrease in hemoglobin from prior but this is just back down to her baseline. No derangement in her differential. Her CMP is consistent with baseline. No significant worsening of renal function. Her VBG was reviewed and there is no signs of acute respiratory failure. Troponin not elevated x 2. BNP only slightly elevated. Chest x-ray was reviewed, there is no concerns for cardiomegaly, pleural effusion, significant pulmonary edema or infectious etiology. Patient was ambulated around the emergency department and there is no desaturation appreciated, no significant change in her symptoms. At this time I do not feel that there is an indication for hospitalization. Patient was given small dose of Lasix because of the crackles I appreciated on her physical examination, I do not feel that she is having signs or symptoms concerning for acute heart failure exacerbation. I also do not feel that her symptoms are consistent with a COPD exacerbation given that she has not had any wheezing and has not been observed to cough during her time in the emergency department. She states that she is more worried about her nighttime cough and sleeping. Will prescribe Phenergan cough syrup for her to take as needed, and recommend continued use of her albuterol inhaler. Recommend close follow-up with her PCP and return precautions were advised. PFSH All Active Problems (Updated 03/07/25 @ 16:48 by Carlos Frances MD) Chronic shortness of breath (Acute) Hyperlipidemia (Acute) Encounter for deep vein thrombosis (DVT) prophylaxis (Acute) COPD exacerbation (Acute) Acute hypoxic respiratory failure (Acute) Headache (Acute) Chest pain (Acute) Acute UTI (Acute) Upper respiratory infection (Acute) Exertional dyspnea (Acute) Hypoxemia (Acute) Localized osteoarthritis of right knee (Acute) Depo-medrol injection: 01/30/23 Benzodiazepine dependence (Chronic) Insomnia (Acute) Nocturnal leg cramps (Acute) Anxiety (Chronic) Hypothyroid (Chronic) Anemia (Chronic) Hearing loss (Acute) Diverticulitis (Chronic) Irritable bowel syndrome (Chronic) Arthropathy (Acute) Plantar fascial fibromatosis (Acute) Chronic kidney disease, stage 4 (severe) (Chronic) Rash (Acute) Medical History (Updated 03/07/25 @ 16:48 by Carlos Frances MD) Eczema Hx of intestinal obstruction History of angina Pt. 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) History of oophorectomy History of colectomy History of cataract surgery Social History Smoking/Tobacco Use Status: Former Tobacco Use Quit Date: 09/14/07 Tobacco: How many years used: 15 Smoking risk assessment performed?: Yes Alcohol Intake: never Drug use: Never Substance use type: does not use Adopted: No Caregiver/Support person: No Foster care: No Household members: spouse Housing: house Number of Children: 5 number of grandchildren: 12 Communication Needs: Corrective Lenses Do you need help understanding health information?: Often current occupation: Retired Sexually active: Yes Do you think of yourself as: straight/heterosexual Current gender identity: female What type of physical activity do you participate in: walking Frequency: daily Thi/Restorationist: Evangelical Seatbelt use: always Working smoke detector in home: Yes Fire extinguisher in home: Yes Carbon monox detector in home: Yes Do you feel safe at home: Yes Do you feel safe in your relationship?: Yes
[2025-03-07] MEDS: Furosemide 40 MG/4 ML VIAL IVP (17:18)
--- NOTE | 2025-03-09 08:22 | NUR.NOTE ---
Access chart to fax prior authorization promethazine HCI 6.25mg/5ml solution to them for review. Nursing Note:
== END 2025-03-07 17:24 | disposition home or self-care (01) ==
PROVIDERS: Emergency Provider Emergency Medicine; PCP Nurse Practitioner Family
DX: R06.02 Shortness of breath (principal); R05.9 Cough, unspecified; J44.9 Chronic obstructive pulmonary disease, unspecified; I12.9 Hypertensive chronic kidney disease with stage 1 through stage 4 chronic kidney disease, or unspecified chronic kidney disease; N18.4 Chronic kidney disease, stage 4 (severe); E78.5 Hyperlipidemia, unspecified
CPT/HCPCS: 36415; 80053; 82805; 87637; 96374; 99284; 71046; 83880; 84484; 85025; J1938

== ENCOUNTER 2025-05-11 04:38 | Outpatient (CLI) | payer MEDICARE, OTHER, SELFPAY ==
[2025-05-11] MEDS: Levalbuterol HFA 15 GM INH 4 PUFF IH (09:00)
[2025-05-11] MEDS: Inhaler, Assist Device 1 EACH MC (09:00)
--- NOTE | 2025-05-11 09:11 | PFT_ITS ---
Date of service: 05/11/25 Time of Service: 07:56 Pulmonary Function Test Result Indications: Chronic cough Impression 1. Good patient effort was noted. ATS standards for reproducibility were met. Difficulty with DLCO testing, which could effect its validity. 2. Spirometry showed mild obstructive lung disease with an FEV1 of 94% (1.37 L). Midflows were reduced at 68%, consistent with small airways disease 3. Following the administration of a bronchodilator there was not a significant response 4. TLC and RV were elevated, consistent with air trapping 5. 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
== END 2025-05-11 04:39 | disposition home or self-care (01) ==
LOC: RT 04:38
PROVIDERS: PCP Nurse Practitioner Family; Visit Provider Internal Medicine Pulmonary Disease
DX: R05.3 Chronic cough (principal); J44.9 Chronic obstructive pulmonary disease, unspecified
CPT/HCPCS: 94060; 94726; 94729

== ENCOUNTER 2025-07-07 11:50 | Outpatient (CLI) | payer MEDICARE, OTHER, SELFPAY ==
--- NOTE | 2025-07-07 10:30 | DI.RAD_ITS ---
Exam(s) XR KNEE RT 4V AP,LAT,RITO,PAT EXAM: XR KNEE RT 4V AP,LAT,RITO,PAT CLINICAL HISTORY: OA R KNEE. TECHNIQUE: 2D digital imaging was performed. Three views. COMPARISON: CR XR KNEE LT 2V AP,LAT from 12/26/2024 FINDINGS: BONES: No acute fracture is present. No bony destructive lesion is seen. Enthesophyte at the superior pole of the patella. JOINTS: The knee is normally aligned. The joint spaces are maintained. No significant periarticular spurring. No joint effusion is seen. SOFT TISSUE: Prominent medial soft tissue swelling. Venous varicosities. IMPRESSION: Minimal degenerative changes. DATA REPOSITORY: RADIATION DOSE DELIVERED:
== END 2025-07-07 11:51 | disposition home or self-care (01) ==
LOC: DIORS 11:50
PROVIDERS: PCP Nurse Practitioner Family; Referring Provider Nurse Practitioner Family; Visit Provider Physician Assistant
DX: M17.11 Unilateral primary osteoarthritis, right knee (principal)
CPT/HCPCS: 20610; J1010; 73564

== ENCOUNTER 2025-08-18 10:14 | Outpatient (CLI) | payer MEDICARE, OTHER, SELFPAY ==
[2025-08-18 15:12] LABS: Abs Immature Grans 0.03 10^3/uL (0.0-0.06); HCT 34.7 % (36.0-46.0); HGB 10.9 g/dL (11.2-15.7); Immature Grans % 0.3 %; MCH 30.6 pg (27.0-33.0); MCHC 31.4 % (32.0-36.0); MCV 98 fL (80-95); MPV 10.8 fL (8.0-11.0); Platelet Count 197 10^3/uL (130-400); RBC 3.56 10^6/uL (3.93-5.22); RDW 12.7 % (11.7-14.6); RDW-SD 45.7 fL; WBC 8.78 10^3/uL (4.4-10.8)
[2025-08-18 15:21] LABS: Hemoglobin A1C 5.7 % (<5.7)
[2025-08-18 15:23] LABS: Uric Acid 5.7 mg/dL (3.1-7.8)
[2025-08-18 15:25] LABS: ALT 16 U/L (10-49); AST 25 U/L (<34); Albumin 4.2 g/dL (3.2-5.0); Alkaline Phosphatase 84 U/L (46-116); Anion Gap 6.4 mmol/L (3-11); BUN 26 mg/dL (9-23); Bilirubin, Total 0.50 mg/dL (0.2-1.2); CO2 27.6 mmol/L (20.0-31.0); Calcium 8.9 mg/dL (8.3-10.6); Chloride 111 mmol/L (98-107); Glucose 91 mg/dL (74-106); Potassium 4.6 mmol/L (3.5-5.1); Sodium 145 mmol/L (136-145); Total Protein 7.1 g/dL (5.7-8.2)
[2025-08-18 15:26] LABS: Iron 82 ug/dL (50-170); Total Iron Binding Capacity 273 ug/dL (250-425)
[2025-08-18 15:27] LABS: TSH (W/Ref FT4) 1.56 uIU/mL (0.55-4.78); Vitamin D 25 Total 48 ng/mL (30-100)
[2025-08-18 15:28] LABS: Ferritin 144 ng/mL (7-271)
[2025-08-18 15:49] LABS: Folate > 24.0 ng/mL (>5.38); Vitamin B12 > 2000 pg/mL (211-911)
[2025-08-18 23:49] LABS: Hepatitis C Ab w Rflx HCV PCR Negative (Negative)
[2025-08-18 23:51] LABS: HBs Antibody, Quant <3.1 mIU/mL (See Note); HIV-1/2 Ag & Ab Screen Negative (Negative); Hepatitis B Surface Antigen Negative (Negative)
[2025-08-21 14:30] LABS: Albumin 60.1 % (55.8-66.1); Albumin g/dL 4.1 g/dL (3.6-5.2); Alpha 1 g/dL 0.30 g/dL (0.15-0.40); Alpha 2 g/dL 0.80 g/dL (0.50-1.00); Beta g/dL 0.90 g/dL (0.60-1.20); Gamma g/dL 0.80 g/dL (0.60-1.60); Total Protein 6.8 g/dL (6.3-8.2)
[2025-08-21 21:01] LABS: Cystatin C, S 1.81 mg/L
== END 2025-08-18 10:15 | disposition home or self-care (01) ==
PROVIDERS: PCP Nurse Practitioner Family; Visit Provider Nurse Practitioner Family
DX: N18.30 Chronic kidney disease, stage 3 unspecified (principal); J44.9 Chronic obstructive pulmonary disease, unspecified; R73.03 Prediabetes; E03.9 Hypothyroidism, unspecified; Z11.4 Encounter for screening for human immunodeficiency virus [HIV]; Z11.59 Encounter for screening for other viral diseases
CPT/HCPCS: 36415; 80053; 82306; 82610; 86704; 86706; 86803; 87340; 87389; 82607; 82728; 82746; 83036; 83540; 83550; 83970; 84100; 84165; 84443; 84550; 85025

== ENCOUNTER 2025-08-18 16:58 | Outpatient (REF) | payer MEDICARE, OTHER, SELFPAY ==
[2025-08-18 19:00] LABS: Glucose Negative (Negative)
[2025-08-18 19:09] LABS: C & S Indicated? Yes; RBC 0-2 HPF (0-2); WBC 20-50 HPF (0-5)
[2025-08-18 19:11] LABS: Microalb ug/mg Crea 43.4 ug/mg Cr; Prot/Crea Ur Ratio 0.19 mg/mg Cr
== END 2025-08-18 16:59 | disposition home or self-care (01) ==
LOC: LBN 16:58
PROVIDERS: PCP Nurse Practitioner Family; Visit Provider Nurse Practitioner Family
DX: N18.30 Chronic kidney disease, stage 3 unspecified (principal); J44.9 Chronic obstructive pulmonary disease, unspecified; R73.03 Prediabetes; E03.9 Hypothyroidism, unspecified
CPT/HCPCS: 87077; 81003; 81015; 82043; 82565; 82570; 84156; 87086; 87186